=== PATIENT | female | born 1950 | race Caucasian/White ===

== ENCOUNTER → 2017-07-15 12:13 | Outpatient (CLI) | payer OTHER, MEDICARE, SELFPAY ==
--- NOTE | 2017-07-15 12:37 | RAD_ITS ---
STUDY: X-RAY - LUMBAR SPINE REASON FOR EXAM: Female, 67 years old. Back pain TECHNIQUE: 5 view(s) of the lumbar spine were obtained. COMPARISON: None FINDINGS: Normal lumbar lordosis. There is no substantial scoliosis. There is a normal alignment of the vertebrae. There is multilevel endplate spondylosis of the lumbar vertebrae. There is multi-level degenerative disc disease with multi-level disc space narrowing. There are clips within the pelvis consistent with prior tubal ligation. RAD/L/S Spine Min 4 Views IMPRESSION: Degenerative changes of the spine, as detailed above. Electronically Signed: Tess Marroquin MD at 23:45 EDT Tel , Service support ,
[2017-07-15 14:14] LABS: Anion Gap 9 (5-15); BUN 17 mg/dL (7-18); BUN/Creat Ratio 23.3 RATIO (10-20); Calcium,Total 9.1 mg/dL (8.5-10.1); Chloride 101 mmol/L (98-107); Creatinine, Serum 0.73 mg/dL (0.55-1.02); EST Glomerular Filtration Rate 85 mL/min (>60); Est Glom Filt Rate - Afr Amer 103 mL/min (>60); Glucose 99 mg/dL (74-106); Sodium Level 141 mmol/L (136-145); T4 Free Direct 0.86 ng/dL (0.76-1.46); Thyroid Stim Hormone (TSH) 0.83 uIU/mL (0.358-3.74)
[2017-07-16 08:38] LABS: Vitamin D,25 Hydroxy 49.5 ng/mL (29.95-100.01)
== END ==
PROVIDERS: Family Provider Family Medicine; PCP Family Medicine; Visit Provider Family Medicine
DX: E04.1 Nontoxic single thyroid nodule (principal); M81.0 Age-related osteoporosis without current pathological fracture; M51.36 Other intervertebral disc degeneration, lumbar region
CPT/HCPCS: 36415; 72110; 80048; 82306; 84439; 84443

== ENCOUNTER → 2017-09-16 15:53 | Outpatient (CLI) | payer MEDICARE, OTHER, SELFPAY ==
[2017-09-16 18:06] LABS: AST(SGOT) 22 U/L (15-37); Alanine Aminotransfer ALT/SGPT 31 U/L (13-56); Albumin, Serum 4.1 g/dL (3.2-5.0); Alkaline Phosphatase 48 U/L (45-117); Bilirubin, Direct 0.09 mg/dL (0.00-0.30); Globulin 3.4 g/dL (2.2-4.2); Protein, Total 7.5 g/dL (6.4-8.2)
== END ==
PROVIDERS: Family Provider Family Medicine; PCP Family Medicine; Visit Provider Family Medicine
DX: Z79.899 Other long term (current) drug therapy (principal)
CPT/HCPCS: 36415; 80076

== ENCOUNTER → 2017-11-11 19:11 | Outpatient (CLI) | payer MEDICARE, OTHER, SELFPAY ==
[2017-11-19 11:54] LABS: HPV APTIMA, High Risk Negative (Negative)
== END ==
PROVIDERS: Referring Provider Obstetrics & Gynecology; Visit Provider Obstetrics & Gynecology
DX: Z12.4 Encounter for screening for malignant neoplasm of cervix (principal)
CPT/HCPCS: 88175; G0145

== ENCOUNTER → 2017-11-18 11:04 | Outpatient (CLI) | payer MEDICARE, OTHER, SELFPAY ==
[2017-11-18 12:30] LABS: Cholesterol 233 mg/dL (200); High Density Lipoprotein 56 mg/dL; Triglycerides 157 mg/dL; Very Low Density Lipoprotein 31 mg/dL (5-40)
== END ==
PROVIDERS: Family Provider Family Medicine; PCP Family Medicine; Visit Provider Family Medicine
DX: Z82.49 Family history of ischemic heart disease and other diseases of the circulatory system (principal)
CPT/HCPCS: 36415; 80061

== ENCOUNTER → 2017-11-21 08:22 | Outpatient (CLI) | payer MEDICARE, OTHER, SELFPAY ==
--- NOTE | 2017-11-21 08:28 | US_ITS ---
STUDY: THYROID ULTRASOUND REASON FOR EXAM: Female, 67 years old. Nodules. TECHNIQUE: Ultrasound evaluation of the thyroid was performed with real-time and static banda-scale imaging. COMPARISON: None. FINDINGS: RIGHT LOBE: The right lobe of the thyroid gland measures 4.5 x 2.0 x 1.6 cm. There is a homogeneous echotexture. There is a 3 cm complex solid and cystic nodule in the mid thyroid lobe. Other tiny cystic nodules are suggested. LEFT LOBE: The left lobe of the thyroid gland measures 4.2 x 1.6 x 1.1 cm. There is a homogeneous echotexture. There is a 5 mm solid nodule. ISTHMUS: The isthmus measures 2 mm . The regional lymph nodes are normal. US/Thyroid IMPRESSION: Dominant 3 cm solid and cystic mass of the right thyroid lobe. Consider ultrasound-guided biopsy. Electronically Signed: Anup José MD at 17:56 EDT , Service support ,
--- NOTE | 2017-11-21 09:00 | BI_ITS ---
MAMMOGRAPHY - BILATERAL SCREENING 3-D SANJUANA SYNTHESIS REASON FOR EXAM: Female, 67 years old. Bilateral Screening 3-D tomosynthesis PERTINENT HISTORY: Asymptomatic. No significant family history given. TECHNIQUE: 2-D mammograms and 3-D Sanjuana synthesis of the breast (s) were performed. CAD was performed. COMPARISON: 11/22/2016 FINDINGS: The breast composition is heterogeneously dense that can obscure small breast masses. Scattered benign calcifications are again seen bilaterally. No dense spiculated dominant masses or suspicious microcalcification cluster are identified. No architectural distortion, asymmetric density, skin thickening or nipple retraction identified. There has been no significant change since the most recent prior study. BI/SCREENING MAMM (CAD), BILAT IMPRESSION: No mammographic sign of malignancy identified. Routine yearly mammograms recommended. ASSESSMENT CATEGORY: BIRADS Category 2: Benign. A letter regarding these results will be sent to the patient by the facility within 30 days. FOLLOW UP RECOMMENDATION: Yearly follow up mammogram recommended. (A) Negative mammographic results should not deter biopsy as a palpable lesion if present should be followed based on clinical grounds and biopsy performed if clinically persistent for 3 months or increasing size. Approximately 10% of breast cancers are not detected by mammography. A normal mammogram should not delay biopsy of a clinically suspicious abnormality. Dense breast tissue may obscure neoplasm. Electronically Signed: Sven Palmer, at 13:07 EDT Tel , Service support ,
== END ==
PROVIDERS: Family Provider Family Medicine; PCP Family Medicine; Referring Provider Family Medicine; Visit Provider Family Medicine
DX: E04.1 Nontoxic single thyroid nodule (principal)
CPT/HCPCS: 76536; 77063; 77067

== ENCOUNTER → 2018-01-19 18:30 | Outpatient (CLI) | payer MEDICARE, OTHER, SELFPAY | PROVIDERS: Family Provider Family Medicine; PCP Family Medicine; Referring Provider Nurse Practitioner Family; Visit Provider Nurse Practitioner Family | DX: R30.0 Dysuria (principal) | CPT/HCPCS: 87077; 87086; 87088; 87186 ==

== ENCOUNTER → 2018-07-28 | Outpatient (CLI) | payer MEDICARE, OTHER, SELFPAY ==
[2018-07-28 12:46] LABS: PTHIN 49.2 pg/mL (18.4-80.1)
[2018-07-28 13:03] LABS: Anion Gap 9 (5-15); BUN 15 mg/dL (7-18); BUN/Creat Ratio 20.5 RATIO (10-20); Calcium,Total 9.2 mg/dL (8.5-10.1); Chloride 105 mmol/L (98-107); Cholesterol 233 mg/dL (200); Creatinine, Serum 0.73 mg/dL (0.55-1.02); EST Glomerular Filtration Rate 85 mL/min (>60); Est Glom Filt Rate - Afr Amer 103 mL/min (>60); Glucose 102 mg/dL (74-106); High Density Lipoprotein 69 mg/dL; Magnesium 2.5 mg/dL (1.6-2.6); Phosphorus 3.5 mg/dL (2.5-4.9); Potassium 4.1 mmol/L (3.5-5.1); Sodium Level 142 mmol/L (136-145); Thyroid Stim Hormone (TSH) 1.33 uIU/mL (0.358-3.74); Triglycerides 110 mg/dL; Very Low Density Lipoprotein 22 mg/dL (5-40)
[2018-07-29 14:54] LABS: Vitamin D,25 Hydroxy 55.5 ng/mL (29.95-100.01)
== END | disposition home or self-care (01) ==
PROVIDERS: Family Provider Family Medicine; PCP Family Medicine; Referring Provider Family Medicine; Visit Provider Family Medicine
DX: Z00.00 Encounter for general adult medical examination without abnormal findings (principal)
CPT/HCPCS: 36415; 80048; 80061; 82306; 82330; 83735; 83970; 84100; 84443

== ENCOUNTER 2018-08-03 20:07 | Emergency (ER) | payer MEDICARE, OTHER, SELFPAY ==
[2018-08-03 20:07] VITALS: BP 143/71; PULSE 63; RESP 15; TEMP 36.6; O2SAT 99; BMI 23.6
--- NOTE | 2018-08-03 20:19 | CT_ITS ---
STUDY: CT BRAIN WITHOUT CONTRAST REASON FOR EXAM: Female, 68 years old. Trauma RADIATION DOSAGE (If Supplied By Facility): DLP = ( 779.24 ) mGycm TECHNIQUE: Transaxial CT imaging of the brain was performed without administration of intravenous contrast material. Individualized dose optimization techniques were used for this CT. COMPARISON: None. FINDINGS: There is no acute bleed or infarct. There are normal white matter tracts. The ventricles are normal in configuration. There is no hydrocephalus. Mild bilateral ethmoid and maxillary sinus disease is present. The mastoid air cells are well aerated. There is no skull fracture. CT/Brain/Head without Contrast IMPRESSION: No acute intracranial abnormality. Mild bilateral ethmoid and maxillary sinus disease. Electronically Signed: Jayson Ambriz, at 20:52 EDT Tel , Service support ,
--- NOTE | 2018-08-03 21:53 | ED.VIS.GEN ---
History of Present Illness Chief Complaint: Head Injury Narrative: Patient presenting for evaluation secondary to head injury. 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 She reports that she has some depression in her forehead as well as nausea. Patient denies any visual changes numbness weakness loss of consciousness. Pain is sharp and mild to moderate worse with any sort of palpation. Patient is not on any sort of anticoagulants. Past Medical History - Allergies and Home Meds Allergies/Adverse Reactions: Allergies Sulfa (Sulfonamide Antibiotics) Allergy (Verified 11/11/17 13:54) Rash Primary Care Physician: Rj Saucedo MD [Primary Care Provider] - As Needed Smoking Status: Never smoker Review of Systems All systems negative except as indicated Gastrointestinal: Reports: Nausea Physical Exam Vital Signs/Narrative: Vital Signs Temp Pulse Resp BP Pulse Ox 08/03/18 20:07 98 F 63 15 143/71 H 99 General: Well nourished, Well developed, No Acute Distress Head: Normocephalic, - - Small depression noted with surrounding swelling of the patient's left frontal portion of her forehead. Eyes: Perrl, EOMI ENT: Moist mucous membranes, No rhinorrhea Neck: Supple, Nontender Cardiovascular: Regular rate, Regular rhythm, No murmurs Respiratory: No distress, CTA bilaterally, Chest nontender Abdomen: Soft, Nontender, Nondistended, Normal bowel sounds Back: Nontender, Normal Inspection Extremities: Nontender, No edema Skin: Normal color, No rash Neurological: Alert, Oriented x3, Cranial nerves II-XII grossly intact, Normal Strength, Normal Sensation Psychological: Normal affect, Normal Mood Diagnostic/Tx/Re-eval - Medical Decision Making Patient presented secondary to head injury. CT scan was obtained and shows no evidence of depressed skull fracture intracranial injury. Patient has symptomatology of concussion at this point, she was recommended on return to activity instructions and the patient was discharged with reassurance. ED Disposition - Plan for ED Patient: Disposition: Home or Assisted Living Diagnosis: Concussion Instructions: ED Concussion Referrals: Rj Saucedo MD [Primary Care Provider] - As Needed
[2018-08-03 21:58] VITALS: BP 137/87; PULSE 75; RESP 16; O2SAT 100
== END 2018-08-03 21:59 | disposition home or self-care (01) ==
PROVIDERS: Emergency Provider Emergency Medicine; Family Provider Family Medicine; PCP Family Medicine
DX: S06.0X0A Concussion without loss of consciousness, initial encounter (principal); W20.8XXA Other cause of strike by thrown, projected or falling object, initial encounter; Y93.E9 Activity, other interior property and clothing maintenance; Y92.009 Unspecified place in unspecified non-institutional (private) residence as the place of occurrence of the external cause; Y99.8 Other external cause status
CPT/HCPCS: 70450; 99282

== ENCOUNTER → 2018-12-21 | Outpatient (CLI) | payer MEDICARE, OTHER, SELFPAY ==
--- NOTE | 2018-12-21 12:24 | BI_ITS ---
MAMMOGRAPHY - BILATERAL SCREENING REASON FOR EXAM: Female, 68 years old. Routine annual screening examination. PERTINENT HISTORY: Non-contributory. TECHNIQUE: Digital bilateral breast sanjuana (3D mammographic acquisition) in the CC and MLO projections. 2-D mediolateral oblique (MLO) and craniocaudad (CC) views of both breasts were obtained. CAD: Full Field Digital Mammography with Computer Added Detection was performed. COMPARISON: Comparison is made with prior study dated November 21, 2017 and November 22, 2016. FINDINGS: Breast Composition: The breasts are heterogeneously dense, which may obscure small masses. There are no dominant masses or suspicious calcifications. Stable scattered bilateral calcifications. No focal cluster is seen. No other significant abnormalities are identified. There has been no significant change since the prior study. BI/SCREEN MAMM (CAD) W/SANJUANA BILAT IMPRESSION: Stable bilateral screening mammogram. Yearly follow-up mammogram recommended. (A) ASSESSMENT CATEGORY: BIRADS Category 2: Benign. A letter regarding these results will be sent to the patient by the facility within 30 days. Approximately 10% of breast cancers are not detected by mammography. A normal mammogram should not delay biopsy of a clinically suspicious abnormality. [id number] Electronically Signed: Umesh Walsh, at 13:40 EST , Service support ,
== END | disposition home or self-care (01) ==
LOC: OPBI 12:22
PROVIDERS: Family Provider Family Medicine; PCP Family Medicine; Referring Provider Obstetrics & Gynecology; Visit Provider Obstetrics & Gynecology
DX: Z12.31 Encounter for screening mammogram for malignant neoplasm of breast (principal)
CPT/HCPCS: 77063; 77067

== ENCOUNTER → 2018-12-25 | Outpatient (CLI) | payer MEDICARE, OTHER, SELFPAY ==
--- NOTE | 2018-12-25 13:56 | US_ITS ---
STUDY: THYROID ULTRASOUND REASON FOR EXAM: Female, 68 years old. Nodule. TECHNIQUE: Ultrasound evaluation of the thyroid was performed with real-time and static banda-scale imaging. COMPARISON: 11/21/2017. FINDINGS: RIGHT LOBE: The right lobe of the thyroid gland measures 4.4 x 2.0 x 1.7 cm. There is a homogeneous echotexture. Within the right thyroid lobe at the level of the mid upper pole there is a round nodule with regular margins and predominantly cystic. There are scattered solid components and more significant along the periphery. There is peripheral color flow. This measures 2.6 x 1.7 x 1.6 cm. LEFT LOBE: The left lobe of the thyroid gland measures 4.1 x 1.6 x 1.2 cm. There is a homogeneous echotexture. Within the left thyroid lobe at the level of the middle pole there is a round hypoechoic to isoechoic, solid, nodule with hypoechoic rim measuring 0.4 x 0.4 x 0.4 cm. There is peripheral color flow and margins are regular. ISTHMUS: The isthmus measures 2.0 mm. The regional lymph nodes are normal. US/Thyroid IMPRESSION: Bilateral thyroid lobe nodules as described above with morphology favoring benign process and essentially stable in the interval. No new nodules are identified. Electronically Signed: Khushboo Bai MD at 3:49 EST , Service support ,
== END | disposition home or self-care (01) ==
LOC: US 13:55
PROVIDERS: Family Provider Family Medicine; PCP Family Medicine; Referring Provider Family Medicine; Visit Provider Family Medicine
DX: E04.1 Nontoxic single thyroid nodule (principal)
CPT/HCPCS: 76536

== ENCOUNTER → 2019-01-25 09:43 | Outpatient (CLI) | payer MEDICARE, OTHER, SELFPAY ==
[2019-01-25 09:00] VITALS: BMI 23.6
[2019-01-25 11:01] LABS: Cholesterol 243 mg/dL (200); High Density Lipoprotein 73 mg/dL; Triglycerides 83 mg/dL; Very Low Density Lipoprotein 17 mg/dL (5-40)
== END ==
PROVIDERS: Family Provider Family Medicine; PCP Family Medicine; Referring Provider Obstetrics & Gynecology; Visit Provider Obstetrics & Gynecology
DX: E78.00 Pure hypercholesterolemia, unspecified (principal); R31.9 Hematuria, unspecified; R82.90 Unspecified abnormal findings in urine
CPT/HCPCS: 36415; 80061; 87086

== ENCOUNTER → 2019-02-02 13:24 | Outpatient (CLI) | payer MEDICARE, OTHER, SELFPAY ==
[2019-01-25 09:00] VITALS: BMI 23.6
--- NOTE | 2019-02-02 13:31 | BD_ITS ---
STUDY: DUAL ENERGY X-RAY ABSORPTIOMETRY / DXA REASON FOR EXAM: Female, 68 years old. The patient is postmenopausal. No loss of height. TECHNIQUE: Bone Mineral Density (BMD) measurements of lumbar spine and bilateral hips were obtained. COMPARISON: Comparison is made with prior study dated January 30, 2008. FINDINGS: Lumbar Spine (L1-L4): g/cm2 (1.024) / T-score (-1.2) / Z-score (0.4) Findings are suggestive of osteopenia with a low fracture risk. Left Femur Total: g/cm2 (0.808) / T-score (-1.6) / Z-score (-0.3) Left Femoral Neck: g/cm2 (0.711) / T-score (-2.4) / Z-score (-0.8) Right Femur Total: g/cm2 (0.900) / T-score (-0.9) / Z-score (0.4) Right Femoral Neck: g/cm2 (0.783) / T-score (-1.8) / Z-score (-0.3) The T-Scores on the most recent prior examination were: Lumbar Spine (L1-L4): There has been improvement of bone density since the previous examination. Left Femur Total: which represents an improvement of 4.7%. Right Femur Total: which represents a worsening of 1%. BD/Dexa Bone Density Study IMPRESSION: The patient is considered osteopenic as outlined below according to World Julio Organization (WHO) criteria with a high fracture risk. There has been improvement of bone density since the previous examination. Reference Information: The T-score is the number of standard deviations above or below the standard which is normal for young adults at their peak bone mineral density. The World Health Organization (WHO) interprets the T-scores as follows: Above -1 Normal bone density Between -1 and -2.5 Osteopenia Equal to / or below -2.5 Osteoporosis As a practical clinical guideline, osteopenia may be graded as follows: Mild -1 through -1.5 Moderate -1.6 through -2.0 Severe -2.1 through -2.4 The Z-score is the number of standard deviations above or below age-matched controls. A Z-score of less than -1.5 would be considered abnormal. References: 1. NIH Osteoporosis and Related Bone Diseases http://www.osteo.org 2. International Society for Clinical Densitometry http://www.iscd.org 3. National Osteoporosis Foundation http://www.nof.org Electronically Signed: Umesh Walsh, at 12:58 EST , Service support ,
== END ==
PROVIDERS: Family Provider Family Medicine; PCP Family Medicine; Referring Provider Obstetrics & Gynecology; Visit Provider Obstetrics & Gynecology
DX: Z78.0 Asymptomatic menopausal state (principal)
CPT/HCPCS: 77080

== ENCOUNTER → 2020-02-01 11:35 | Outpatient (CLI) | payer MEDICARE, OTHER, SELFPAY ==
[2019-01-25 09:00] VITALS: BMI 23.6
[2020-02-01 10:53] VITALS: BMI 23.2
--- NOTE | 2020-02-01 11:53 | BI_ITS ---
MAMMOGRAPHY - BILATERAL SCREENING REASON FOR EXAM: Female, 69 years old. Routine annual screening examination. PERTINENT HISTORY: Non-contributory. TECHNIQUE: Digital bilateral breast sanjuana (3D mammographic acquisition) in the CC and MLO projections. 2-D mediolateral oblique (MLO) and craniocaudad (CC) views of both breasts were obtained. CAD: Full Field Digital Mammography with Computer Added Detection was performed. COMPARISON: Comparison is made with prior study dated 12/21/2018 and 11/21/2017. FINDINGS: Breast Composition: The breasts are heterogeneously dense, which may obscure small masses. There are no dominant masses or suspicious calcifications. Stable scattered bilateral benign-appearing calcifications. No focal cluster is seen. No other significant abnormalities are identified. There has been no significant change since the prior study. BI/SCREEN MAMM (CAD) W/SANJUANA BILAT IMPRESSION: Stable bilateral screening mammogram. Yearly follow-up mammogram recommended. (A) ASSESSMENT CATEGORY: BIRADS Category 2: Benign. A letter regarding these results will be sent to the patient by the facility within 30 days. Approximately 10% of breast cancers are not detected by mammography. A normal mammogram should not delay biopsy of a clinically suspicious abnormality. [id number] Electronically Signed: Umesh Walsh, at 12:42 EST , Service support ,
== END ==
PROVIDERS: PCP Family Medicine; Referring Provider Obstetrics & Gynecology; Visit Provider Obstetrics & Gynecology
DX: Z12.31 Encounter for screening mammogram for malignant neoplasm of breast (principal); R30.0 Dysuria
CPT/HCPCS: 77063; 77067; 87086

== ENCOUNTER 2020-05-29 18:52 | Emergency (ER) | payer MEDICARE, OTHER, SELFPAY ==
[2020-02-01 10:53] VITALS: BMI 23.2
[2020-05-29 18:54] VITALS: BP 115/80; PULSE 78; RESP 14; TEMP 36.6; O2SAT 100; BMI 24.6
--- NOTE | 2020-05-29 19:14 | RAD_ITS ---
STUDY: X-RAY - RIGHT SHOULDER REASON FOR EXAM: Female, 69 years old. shoulder pain TECHNIQUE: 4 view(s) of the shoulder. COMPARISON: None. FINDINGS: Normal glenohumeral articulation. Normal acromioclavicular joint. Normal acromion. Normal humeral head and visualized proximal humerus. The soft tissue structures are unremarkable. There is no demonstrated fracture. Normal visualized pulmonary apex. RAD/Shoulder min 2 Views IMPRESSION: Normal x-ray examination of the shoulder. Electronically Signed: Ike Card MD at 20:40 EDT , Service support ,
--- NOTE | 2020-05-29 19:15 | ED.VIS.GEN ---
History of Present Illness Chief Complaint: Upper Extremity Injury Informant: Patient Narrative: 69-year-old female presenting with right shoulder pain and radiation of pain down her arm. She states it is fairly diffuse and not in any certain dermatome. Patient states that her arm shoulder started to hurt after raking the yard a couple days ago. Yesterday she did try using her inversion table and felt a pop. She cannot localize where this was. Patient has pain since that time. She has no direct trauma. She has pain with movement of her right shoulder laterally. - Past Medical History (1) Osteopenia Status: Chronic Comment: DEXA in 2020 (2) Dyspareunia Status: Chronic Comment: failed pills and cream. Past Medical History - Allergies and Home Meds Allergies/Adverse Reactions: Allergies Sulfa (Sulfonamide Antibiotics) Allergy (Verified 05/29/20 18:57) Rash Primary Care Physician: Rj Saucedo MD [Primary Care Provider] - Agustin Guzman DO [STAFF PHYSICIAN] - Prior records reviewed: Yes Past Medical History: - - ADHD Surgical History: noncontributory Lives: Spouse/ Significant Other Smoking Status: Never smoker Alcohol: None Drugs: None Review of Systems General: Denies: Chills, Fever, Sweats Eyes: Denies: Visual changes - bilaterally, Diplopia ENT: Denies: Rhinorrhea, Sore throat Cardiovascular: Denies: Chest pain, Palpitations Respiratory: Denies: Dyspnea, Cough, Dyspnea on exertion Gastrointestinal: Denies: Abdominal pain, Nausea, Vomiting, Diarrhea, Melena, Hematochezia Genitourinary: Denies: Dysuria, Hematuria, Frequency Musculoskeletal: Reports: - - Right shoulder pain. Neurological: Reports: Parasthesia - Radiation of pain down the right arm laterally.. Denies: Headache, Weakness Psych: Denies: Depression, Anxiety, Suicidal thoughts, Suicidal ideations, -, - Physical Exam Vital Signs/Narrative: Vital Signs Temp Pulse Resp BP Pulse Ox 05/29/20 18:54 97.8 F 78 14 115/80 100 Inital Vital Signs reviewed: Yes General: Well nourished Head: Normocephalic, Atraumatic Eyes: Perrl, EOMI ENT: Moist mucous membranes, No rhinorrhea Neck: Supple, - - No midline spinal tenderness, deformity, step-off. There is pain elicited by rotation to the right and there is decreased rotation to the right. Cardiovascular: Regular rate, Regular rhythm Respiratory: No distress, CTA bilaterally Back: Nontender, Normal Inspection Extremities: - - No palpable tenderness to palpation to the right shoulder girdle or clavicle. Pain is elicited with abduction and she states it feels posterior to her joint. Neurological: Alert, Oriented x3 Psychological: Normal affect, Normal Mood Diagnostic/Tx/Re-eval Clinical Impression(s) from Imaging Studies Shoulder X-Ray 05/29/20 19:14 IMPRESSION: Normal x-ray examination of the shoulder. Electronically Signed: Ike Card MD at 20:40 EDT , Service support , Cervical Spine X-Ray 05/29/20 19:29 IMPRESSION: Mild degenerative changes of the visualized cervical spine. Electronically Signed: Rell Kruse DO at 20:32 EDT Tel [phone], Service support , - Medical Decision Making 9-year-old female presenting with chief complaint of right shoulder pain. On examination she has pain with rotation towards that shoulder. Her shoulder girdle is nontender to palpation. She complains of pain rating down her arm and on dermatomal pattern. Patient had 2 views of the right shoulder which by my interpretation are negative for acute fracture or subluxation. Radiology does agree. 3 views of the cervical spine show degenerative changes however there is no acute fracture, subluxation, change in disc height. Patient counseled the likely diagnosis for her cervical radiculopathy. She is given [place] [facility] for home. She is counseled to follow-up with Dr. Guzman and her PCP to ensure resolution. She is amenable to this plan. Patient stable for discharge. Impression: 1. Right shoulder pain 2. Cervical radiculopathy ED Disposition - Plan for ED Patient: Disposition: Home or Assisted Living Instructions: ED Radiculopathy, Cervical Prescriptions: Hydrocodone Bitart/Apap 5-325 [[place] 5MG-325MG] 1 tablet PO Q6H PRN PRN 3 Days #12 tab PRN Reason: Pain Prescription Printed Referrals: Rj Saucedo MD [Primary Care Provider] - Agustin Guzman DO [STAFF PHYSICIAN] -
[2020-05-29] MEDS: Ondansetron 4 MG/2 ML Vial IV (19:21)
[2020-05-29] MEDS: Morphine 4 MG/ML Syringe IV (19:23)
--- NOTE | 2020-05-29 19:29 | RAD_ITS ---
STUDY: X-RAY - CERVICAL SPINE REASON FOR EXAM: Female, 69 years old. Neck pain TECHNIQUE: 3 view(s) of the cervical spine were obtained. COMPARISON: None FINDINGS: Normal anterior atlantoaxial articulation. Normal odontoid process. Straightening of the cervical lordosis. Normal vertebral bodies. Mild spurring of the lower cervical endplates. Normal disc space heights. The soft tissue structures are unremarkable. RAD/Cerv Spine 2 or 3 Views IMPRESSION: Mild degenerative changes of the visualized cervical spine. Electronically Signed: Rell Kruse DO at 20:32 EDT Tel [phone], Service support ,
[2020-05-29] MEDS: oxyCODONE 5 MG Tablet PO (21:10)
[2020-05-29 21:16] VITALS: RESP 16
== END 2020-05-29 22:08 | disposition home or self-care (01) ==
PROVIDERS: Emergency Provider Student in an Organized Health Care Education/Training Program; PCP Family Medicine
DX: M54.12 Radiculopathy, cervical region (principal); M25.511 Pain in right shoulder
CPT/HCPCS: 72040; 73030; 96374; 96375; 99284; A4216; J2405

== ENCOUNTER → 2020-06-08 13:53 | Outpatient (CLI) | payer MEDICARE, OTHER, SELFPAY ==
[2020-06-05 15:15] VITALS: BMI 23.6
--- NOTE | 2020-06-08 13:54 | MRI_ITS ---
STUDY: MRI CERVICAL SPINE WITHOUT CONTRAST REASON FOR EXAM: Female, 70 years old. injury, right arm pain TECHNIQUE: Standardized fat and water weighted pulse sequences were obtained in the sagittal and axial planes. COMPARISON: X-ray 05/29/2020 FINDINGS: Normal foramen magnum and brainstem-cervical cord junction. Normal craniovertebral junction. Normal anterior atlantoaxial articulation. Normal odontoid process. Normal cervical lordosis. Normal vertebral bodies and posterior osseous elements. C2-3: Moderate left facet hypertrophy produces mild left neural foraminal stenosis. No central spinal stenosis. C3-4: Moderate right facet hypertrophy produces mild right neural foraminal stenosis. Moderate sized central disc protrusion produces moderate spinal stenosis with abutment of the central spinal cord. C4-5: 2 mm of anterolisthesis of C4 on C5 with a large central disc protrusion produces moderate spinal stenosis with abutment the central spinal cord. No neural foraminal stenosis. C5-6: Mild broad disc osteophyte complex produces mild spinal stenosis but no neural foraminal stenosis. C6-7: Mild broad disc osteophyte complex produces mild spinal stenosis but no neural foraminal stenosis. C7-T1: Moderate broad disc osteophyte complex produces moderate spinal stenosis with abutment central spinal cord but no neural foraminal stenosis. Normal cervical cord. Normal visualized soft tissue structures. MRI/Spine Cervical (Routine) IMPRESSION: Multilevel degenerative changes, as described above. Electronically Signed: Missael Mancilla MD at 15:49 EDT Tel , Service support ,
== END ==
PROVIDERS: PCP Family Medicine; Referring Provider Orthopaedic Surgery; Visit Provider Orthopaedic Surgery
DX: M50.10 Cervical disc disorder with radiculopathy, unspecified cervical region (principal); S14.109A Unspecified injury at unspecified level of cervical spinal cord, initial encounter
CPT/HCPCS: 72141

== ENCOUNTER → 2020-07-14 14:06 | Outpatient (CLI) | payer MEDICARE, OTHER, SELFPAY ==
--- NOTE | 2020-07-14 14:10 | US_ITS ---
STUDY: ULTRASOUND - URINARY BLADDER REASON FOR EXAM: Female, 70 years old. INCOMPLETE BLADDER EMPTYING TECHNIQUE: Ultrasound evaluation of the urinary bladder was performed with real-time and static banda-scale imaging. COMPARISON: None. FINDINGS: There is no right UVJ calculus. There is a visualized right ureteral jet. There is no left UVJ calculus. There is a visualized left ureteral jet. The distended volume of the urinary bladder is 680.8 ml. The empty volume of the urinary bladder is 35.71 ml. The bladder wall is within normal limits. The bladder wall measures . There is no demonstrated bladder wall mass lesion. There are no demonstrated bladder calculi. US/Post Void Residual Bladder IMPRESSION: Normal ultrasound of the urinary bladder. Electronically Signed: Umesh Walsh MD at 15:12 EDT , Service support ,
== END ==
PROVIDERS: PCP Family Medicine; Referring Provider Family Medicine; Visit Provider Family Medicine
DX: N39.0 Urinary tract infection, site not specified (principal); R33.9 Retention of urine, unspecified
CPT/HCPCS: 51798; 87086; 87088

== ENCOUNTER → 2020-08-02 09:21 | Outpatient (CLI) | payer MEDICARE, OTHER, SELFPAY ==
[2020-08-02 10:39] LABS: PTHIN 47.2 pg/mL (18.4-80.1)
[2020-08-02 10:44] LABS: Vitamin D,25 Hydroxy 63.1 ng/mL
[2020-08-02 10:53] LABS: Anion Gap 3 (5-15); BUN 13 mg/dL (7-18); BUN/Creat Ratio 16.7 RATIO (10-20); Calcium,Total 9.3 mg/dL (8.5-10.1); Chloride 107 mmol/L (98-107); Cholesterol 232 mg/dL (200); Creatinine, Serum 0.78 mg/dL (0.55-1.02); EST Glomerular Filtration Rate 78 mL/min (>60); Est Glom Filt Rate - Afr Amer 94 mL/min (>60); Glucose 99 mg/dL (74-106); High Density Lipoprotein 63 mg/dL; Magnesium 2.3 mg/dL (1.6-2.6); Potassium 3.8 mmol/L (3.5-5.1); Sodium Level 141 mmol/L (136-145); Thyroid Stim Hormone (TSH) 0.85 uIU/mL (0.358-3.74); Triglycerides 131 mg/dL; Very Low Density Lipoprotein 26 mg/dL (5-40)
== END ==
PROVIDERS: PCP Family Medicine; Referring Provider Family Medicine; Visit Provider Family Medicine
DX: M81.0 Age-related osteoporosis without current pathological fracture (principal)
CPT/HCPCS: 36415; 80048; 80061; 82306; 83735; 83970; 84443

== ENCOUNTER → 2020-08-02 10:17 | Outpatient (CLI) | payer MEDICARE, OTHER, SELFPAY ==
[2020-06-05 15:15] VITALS: BMI 23.6
--- NOTE | 2020-08-02 10:20 | US_ITS ---
STUDY: THYROID ULTRASOUND REASON FOR EXAM: Female, 70 years old. History of thyroid nodule. TECHNIQUE: Ultrasound evaluation of the thyroid was performed with real-time and static banda-scale imaging. COMPARISON: Comparison is made with prior examination of 12/25/2018 and 11/21/2017. FINDINGS: RIGHT LOBE: The right lobe of the thyroid gland measures 4.5 cm x 2.1 cm x 1.8 cm. There is a homogeneous echotexture. There is a complex solid/cystic nodule in the midpole of the right lobe measuring 3.2 cm x 1.8 cm x 1.4 cm. Increased intralobular nodular vascularity. LEFT LOBE: The left lobe of the thyroid gland measures 4.3 cm x 1.4 cm x 1 cm. There is a homogeneous echotexture. There is a 4 mm x 5 mm x 4 mm isoechoic nodule in the midpole of the left lobe. Intranodular and perinodular vascularity is seen. This is unchanged. ISTHMUS: The isthmus measures 1 mm. The regional lymph nodes are normal. US/Thyroid IMPRESSION: Mild increase in size of the complex nodule in the midportion of the right lobe of the thyroid. A biopsy is recommended. Electronically Signed: Umesh Walsh MD at 12:44 EDT , Service support ,
== END ==
PROVIDERS: PCP Family Medicine; Referring Provider Family Medicine; Visit Provider Family Medicine
DX: E04.1 Nontoxic single thyroid nodule (principal); Z13.220 Encounter for screening for lipoid disorders; M81.0 Age-related osteoporosis without current pathological fracture
CPT/HCPCS: 36415; 76536; 80048; 80061; 82306; 83735; 83970; 84443

== ENCOUNTER → 2020-08-09 | Outpatient (CLI) | payer MEDICARE, OTHER, SELFPAY ==
--- NOTE | 2020-08-08 08:28 | ASPS_PTH ---
PATIENT: YADIRA KWON LOC: [facility] U#:[id number] AGE/SX: 70/F ROOM: RE08/09/[address]: Dr. Brandon Felix MD : 1950 BED: DIS: 08/09/2020 SPEC #: [id number] RECD: 08/09/20 12:11 STATUS: ASHWINI CHAYO #: [id number] JEN: 08/08/20 08:[address]: Brandon Felix DEPT: CYTOLOGY RECD BY: Rivka Pineda ENTERED: 08/10/20 08:34 SP TYPE: ASPIRATION OTHR DR: Dr. Néstor Saucedo MD Tissues: Thyroid gland, NOS Procedures: Special Stain Group II Cytology Other HEADER OPERATION: Right thyroid fine needle aspiration PRE-OP DIAGNOSIS: Nontoxic multinodular goiter TISSUE SUBMITTED: Right thyroid FNA slides x12 DIAGNOSIS CYTOLOGY Right thyroid, FNA (smears): Consistent with benign follicular/colloid nodule. Adequate for evaluation. See comment. SJ:carlotta 08/11/2020 COMMENT Correlation with clinical, radiologic findings and appropriate follow up are necessary. CYTOLOGY STUDY Slides are reviewed. CYTOLOGY GROSS Received are 12 smears labeled with the patient's name and designated per the requisition as right thyroid. Submitted for staining. / carlotta 08/10/2020 TC:5 CPT: 76768
== END | disposition home or self-care (01) ==
LOC: LABSPEC 12:55
PROVIDERS: PCP Family Medicine; Referring Provider Surgery; Visit Provider Surgery
DX: E04.2 Nontoxic multinodular goiter (principal)
CPT/HCPCS: 88161; 88313

== ENCOUNTER → 2021-02-01 09:48 | Outpatient (CLI) | payer MEDICARE, OTHER, SELFPAY ==
--- NOTE | 2021-02-01 09:53 | BI_ITS ---
MAMMOGRAPHY - BILATERAL SCREENING REASON FOR EXAM: Female, 70 years old. Routine annual screening examination. PERTINENT HISTORY: Non-contributory. TECHNIQUE: Digital bilateral breast sanjuana (3D mammographic acquisition) in the CC and MLO projections. 2-D mediolateral oblique (MLO) and craniocaudad (CC) views of both breasts were obtained. CAD: Full Field Digital Mammography with Computer Added Detection was performed. COMPARISON: Comparison is made with prior study dated 02/01/2020 and 12/21/2018. FINDINGS: Breast Composition: The breasts are heterogeneously dense, which may obscure small masses. There are no dominant masses or suspicious calcifications. Stable scattered bilateral calcifications. No focal cluster is seen. No other significant abnormalities are identified. There has been no significant change since the prior study. BI/SCRN MAMM (CAD)W/SANJUANA BILAT IMPRESSION: Stable bilateral screening mammogram. Yearly follow-up mammogram recommended. (A) ASSESSMENT CATEGORY: BIRADS Category 2: Benign. A letter regarding these results will be sent to the patient by the facility within 30 days. Approximately 10% of breast cancers are not detected by mammography. A normal mammogram should not delay biopsy of a clinically suspicious abnormality. [id number] Electronically Signed: Umesh Walsh MD at 11:14 EST , Service support ,
== END ==
PROVIDERS: PCP Family Medicine; Referring Provider Obstetrics & Gynecology; Visit Provider Obstetrics & Gynecology
DX: Z12.31 Encounter for screening mammogram for malignant neoplasm of breast (principal)
CPT/HCPCS: 77063; 77067

== ENCOUNTER 2021-05-10 16:17 | Outpatient (CLI) | payer MEDICARE, OTHER, SELFPAY ==
[2021-05-10 17:36] LABS: Absolute Lymphocyte Count 1.55 X10^3/uL (0.83-4.51); Absolute Neutrophil Count 3.7 X10^3/uL (2.0-7.7); Basophil# 0.04 X10^3/uL; Basophil% 0.7 % (0-1); Eosinophil# 0.19 X10^3/uL; Eosinophils% 3.2 % (0-5); Hematocrit 36.5 % (37-47); Hemoglobin 11.9 g/dL (12.0-15.0); Lymphocyte # 1.55 X10^3/ul (0.83-4.51); Lymphocyte % 26.5 % (19-41); Mean Corp Hgb Conc 32.6 g/dL (32-36); Mean Corpuscular Hgb 30.2 pg (27.0-32.0); Mean Corpuscular Volume 92.6 fL (81-99); Mean Platelet Vol. 10.2 fl (6.2-12.0); Monocyte# 0.38 X10^3/uL; Monocyte% 6.5 % (0-10); NRBC Flagged by Analyzer 0 % (0-5); Neutrophil # 3.69 X10^3/uL (2.7-7.7); Neutrophil % 62.9 % (47-70); Platelet Count 320 K/mm3 (150-450); RBC Distribution Width CV 13.6 % (11.6-14.6); RBC Distribution Width SD 45.9 fl (35.1-43.9); Red Blood Count 3.94 M/mm3 (4.2-5.4); White Blood Count 5.9 K/mm3 (4.4-11.0)
[2021-05-10 17:51] LABS: Erythrocyte Sedimentation Rate 15 mm/hr (0-30)
[2021-05-10 18:03] LABS: ALB/GLOB Ratio 1.2 RATIO (0.9-2.4); AST(SGOT) 15 U/L (15-37); Alanine Aminotransfer ALT/SGPT 24 U/L (13-56); Alkaline Phosphatase 54 U/L (45-117); Anion Gap 7 (5-15); BUN 16 mg/dL (7-18); BUN/Creat Ratio 21.4 RATIO (10-20); CRP < 2.90 mg/L (0.0-3.0); Calcium,Total 9.1 mg/dL (8.5-10.1); Chloride 103 mmol/L (98-107); Creatinine, Serum 0.75 mg/dL (0.55-1.02); EST Glomerular Filtration Rate 82 mL/min (>60); Est Glom Filt Rate - Afr Amer 99 mL/min (>60); Ferritin 62 ng/mL (8-252); Globulin 3.4 g/dL (2.2-4.2); Glucose 109 mg/dL (74-106); Iron 48 ug/dL (50-170); Magnesium 2.6 mg/dL (1.6-2.6); Potassium 3.3 mmol/L (3.5-5.1); Protein, Total 7.4 g/dL (6.4-8.2); Sodium Level 139 mmol/L (136-145); Thyroid Stim Hormone (TSH) 0.28 uIU/mL (0.358-3.74)
[2021-05-10 18:16] LABS: Vitamin B12 357 pg/mL (211-911)
[2021-05-12 08:56] LABS: Free T3 3.2 pg/mL (2.18-3.98); T4 Free Direct 0.83 ng/dL (0.76-1.46)
== END 2021-05-10 23:59 | disposition home or self-care (01) ==
LOC: MFPLAB 16:24
PROVIDERS: PCP Family Medicine; Referring Provider Family Medicine; Visit Provider Family Medicine
DX: R53.83 Other fatigue (principal); R19.7 Diarrhea, unspecified; U09.9 Post COVID-19 condition, unspecified; M81.0 Age-related osteoporosis without current pathological fracture
CPT/HCPCS: 36415; 80053; 82306; 82607; 82728; 83540; 83735; 84439; 84443; 84481; 85025; 85652; 86140

== ENCOUNTER 2021-05-15 11:12 | Outpatient (CLI) | payer MEDICARE, OTHER, SELFPAY | END 2021-05-15 23:59 | disposition home or self-care (01) | LOC: MFPLAB 11:12 | PROVIDERS: PCP Family Medicine; Referring Provider Family Medicine; Visit Provider Family Medicine | DX: R19.7 Diarrhea, unspecified (principal) | CPT/HCPCS: 87493 ==

== ENCOUNTER 2021-06-06 13:05 | Outpatient (CLI) | payer MEDICARE, OTHER, SELFPAY ==
--- NOTE | 2021-06-06 13:09 | ECHOD_ITS ---
Reason For Study: SOB Procedure This was a 2D Doppler, Color Flow transthoracic echocardiogram. The exam was of adequate technical quality. Exam performed in department. Left Ventricle Normal LV size. Left ventricular systolic function is normal. The estimated ejection fraction is 65 %. Diastolic function is indeterminate. No regional wall motion abnormalities noted. Right Ventricle Normal RV size. Normal systolic function. Atria Normal left atrium. Normal right atrium. No doppler evidence for ASD. Mitral Valve There is no mitral annular calcification. Mild diffuse mitral valve thickening. Mild mitral valve prolapse. Trivial mitral valve insufficiency. Tricuspid Valve Normal tricuspid valve. Mild tricuspid valve insufficiency. Right ventricular systolic pressure estimated to be 25 mmHg. Aortic Valve Trisinus/trileaflet aortic valve. Normal aortic valve. Pulmonic Valve The pulmonic valve is not well visualized. Mild (1+) pulmonic valve insufficiency. Great Vessels The aortic root is not well visualized. Pericardium/Pleural No pericardial effusion. MMode/2D Measurements & Calculations LVIDd: 4.0 cm IVSd: 1.0 cm Ao root diam: 3.7 cm LVIDs: 2.4 cm LVPWd: 0.78 cm LA dimension: 2.7 cm FS: 40.0 % LAV(MOD-bp): 38.8 ml LA A4 area: 15.8 cm2 RA A4 area: 13.1 cm2 LAV(MOD-bp) Indexed: 24.6 ml/m2 LAV(MOD-sp2): 33.3 ml LAV(MOD-sp4): 38.3 ml Time Measurements MV dec time: 0.22 sec Doppler Measurements & Calculations MV E max alberto: 94.4 cm/sec Lat Peak E' Alberto: 5.7 cm/sec Med Peak E' Alberto: 10.6 cm/sec MV A max alberto: 115.9 cm/sec E/E' lat: 16.4 E/E' med: 8.9 MV E/A: 0.81 MV V2 max: 133.9 cm/sec MV P1/2t max alberto: 118.5 cm/sec Ao V2 max: 117.6 cm/sec MV max P.2 mmHg MV P1/2t: 64.1 msec Ao max P.5 mmHg MV V2 mean: 74.9 cm/sec MV dec slope: 541.5 cm/sec2 MV mean P.6 mmHg MVA(P1/2t): 3.4 cm2 MV V2 VTI: 31.7 cm LV V1 max: 97.6 cm/sec PA V2 max: 70.3 cm/sec TR max alberto: 234.3 cm/sec LV V1 max P.8 mmHg TR max P.0 mmHg ECHO/Echo Complete Interpretation Summary Left ventricular systolic function is normal. The estimated ejection fraction is 65 %. Mild diffuse mitral valve thickening. Mild mitral valve prolapse. Trivial mitral valve insufficiency. Mild tricuspid valve insufficiency. Mild (1+) pulmonic valve insufficiency. Right ventricular systolic pressure estimated to be 25 mmHg. Diastolic function is indeterminate. Ordering Physician: Rj Saucedo Referring Physician: Rj Saucedo Performed By: nAderson Webber [facility]
== END 2021-06-06 23:59 | disposition home or self-care (01) ==
LOC: CVS 13:08
PROVIDERS: PCP Family Medicine; Referring Provider Family Medicine; Visit Provider Family Medicine
DX: R06.02 Shortness of breath (principal)
CPT/HCPCS: 93306

== ENCOUNTER → 2021-08-07 | Outpatient (CLI) | payer MEDICARE, OTHER, SELFPAY ==
--- NOTE | 2021-08-07 13:30 | US_ITS ---
STUDY: THYROID ULTRASOUND REASON FOR EXAM: Female, 71 years old. NODULE TECHNIQUE: Ultrasound evaluation of the thyroid was performed with real-time and static banda-scale imaging. COMPARISON: 08/02/2020 FINDINGS: RIGHT LOBE: The right lobe of the thyroid gland measures 4.9 x 2.1 x 1.7 cm. There is a homogeneous echotexture. Complex solid and cystic nodule of the inferior right thyroid lobe measures 3.2 x 1.8 x 1.7 cm, not substantially changed. No new right thyroid lobe nodule. LEFT LOBE: The left lobe of the thyroid gland measures 4.5 x 1.6 x 1.1 cm. There is a homogeneous echotexture. Isoechoic nodule of the mid left thyroid gland measures 4 mm, not significantly changed. No new left thyroid lobe nodule. ISTHMUS: The isthmus measures 1 mm. The regional lymph nodes are normal. US/Thyroid IMPRESSION: 1. Moderately (TiRads 4) suspicious right thyroid lobe nodule, unchanged since 08/02/2020. FNA sampling still recommended based on ACR guidelines, if not already performed. Electronically Signed: Carlos Mathew MD ([place]) at 9:17 EDT Reading Location ID and State: / [place] , Service support ,
--- NOTE | 2021-08-07 13:33 | BD_ITS ---
STUDY: DUAL ENERGY X-RAY ABSORPTIOMETRY / DXA REASON FOR EXAM: Female, 71 years old. M81.0 patient is postmenopausal. TECHNIQUE: Bone Mineral Density (BMD) measurements of lumbar spine and bilateral hips were obtained. COMPARISON: Comparison is made with prior study dated 02/02/2019. FINDINGS: Lumbar Spine (L1-L4): g/cm2 (1.049) / T-score (0.0) / Z-score (2.1) Findings are suggestive of normal bone density with a low fracture risk. Left Femur Total: g/cm2 (0.764) / T-score (-1.5) / Z-score (0.0) Left Femoral Neck: g/cm2 (0.581) / T-score (-2.4) / Z-score (-0.7) Right Femur Total: g/cm2 (0.906) / T-score (-0.3) / Z-score (1.2) Right Femoral Neck: g/cm2 (0.686) / T-score (-1.5) / Z-score (0.3) The T-Scores on the most recent prior examination were: Lumbar Spine (L1-L4): There has been improvement of bone density since the previous examination. Left Femur Total: which represents an improvement of 2.2%. Right Femur Total: which represents an improvement of 8.3%. BD/Dexa Bone Density Study IMPRESSION: The patient is considered osteopenic as outlined below according to World Julio Organization (WHO) criteria with a high fracture risk. There has been of bone density since the previous examination. Reference Information: The T-score is the number of standard deviations above or below the standard which is normal for young adults at their peak bone mineral density. The World Health Organization (WHO) interprets the T-scores as follows: Above -1 Normal bone density Between -1 and -2.5 Osteopenia Equal to / or below -2.5 Osteoporosis As a practical clinical guideline, osteopenia may be graded as follows: Mild -1 through -1.5 Moderate -1.6 through -2.0 Severe -2.1 through -2.4 The Z-score is the number of standard deviations above or below age-matched controls. A Z-score of less than -1.5 would be considered abnormal. References: 1. NIH Osteoporosis and Related Bone Diseases www osteo.org 2. International Society for Clinical Densitometry www iscd.org 3. National Osteoporosis Foundation www nof.org Electronically Signed: Umesh Walsh MD at 14:15 EDT ,
== END | disposition home or self-care (01) ==
LOC: OPBD 13:28
PROVIDERS: PCP Family Medicine; Visit Provider Family Medicine
DX: M81.0 Age-related osteoporosis without current pathological fracture (principal); E04.1 Nontoxic single thyroid nodule
CPT/HCPCS: 76536; 77080

== ENCOUNTER 2021-11-22 19:51 | Emergency (ER) | payer MEDICARE, OTHER, SELFPAY ==
[2021-11-22 19:52] VITALS: BP 188/99; PULSE 98; RESP 18; TEMP 36.3; O2SAT 100; BMI 22.6
[2021-11-22 20:15] LABS: Absolute Lymphocyte Count 2.22 X10^3/uL (0.83-4.51); Absolute Neutrophil Count 5.3 X10^3/uL (2.0-7.7); Basophil# 0.04 X10^3/uL; Basophil% 0.5 % (0-1); Eosinophil# 0.28 X10^3/uL; Eosinophils% 3.3 % (0-5); Hematocrit 39.4 % (37-47); Hemoglobin 12.6 g/dL (12.0-15.0); Lymphocyte # 2.22 X10^3/ul (0.83-4.51); Lymphocyte % 26.3 % (19-41); Mean Corpuscular Volume 90.8 fL (81-99); Mean Platelet Vol. 9.6 fl (6.2-12.0); Monocyte# 0.55 X10^3/uL; Monocyte% 6.5 % (0-10); NRBC Flagged by Analyzer 0 % (0-5); Neutrophil # 5.34 X10^3/uL (2.7-7.7); Neutrophil % 63.2 % (47-70); Platelet Count 348 K/mm3 (150-450); RBC Distribution Width CV 13.3 % (11.6-14.6); RBC Distribution Width SD 44.9 fl (35.1-43.9); Red Blood Count 4.34 M/mm3 (4.2-5.4); White Blood Count 8.5 K/mm3 (4.4-11.0)
--- NOTE | 2021-11-22 20:17 | RAD_ITS ---
STUDY: X-RAY CHEST REASON FOR EXAM: Female, 71 years old. Chest pain. Patient''s states she is having heart attack symptoms since yesterday. Pain in left shoulder on the left breast. Weakness. TECHNIQUE: Single AP portable view of the chest. COMPARISON: None. FINDINGS: The lungs are clear and expanded. There is no demonstrated pleural abnormality. Normal size heart. Normal mediastinum and susy. Normal visualized pulmonary arteries. Normal visualized aortic arch and descending thoracic aorta. Normal visualized thoracic spine. Normal visualized ribs, clavicles, and shoulders. There is no demonstrated abnormality of the visualized soft tissue structures of the upper abdomen. RAD/Chest 1 View (Portable) IMPRESSION: Normal x-ray examination of the chest. Electronically Signed: Luiz Guzman DO at 20:28 EDT ,
[2021-11-22 20:34] LABS: Anion Gap 7 (5-15); BUN 18 mg/dL (7-18); BUN/Creat Ratio 17.6 RATIO (10-20); Calcium,Total 9.7 mg/dL (8.5-10.1); Chloride 107 mmol/L (98-107); Creatinine, Serum 1.02 mg/dL (0.55-1.02); EST Glomerular Filtration Rate 57 mL/min (>60); Est Glom Filt Rate - Afr Amer 69 mL/min (>60); Estimated Creatinine Clearance 39.28 ml/min; Glucose 120 mg/dL (74-106); Potassium 3.6 mmol/L (3.5-5.1); Sodium Level 141 mmol/L (136-145); Troponin-I HS 5 pg/mL (3.0-54.0)
--- NOTE | 2021-11-22 21:18 | EDS_ITS ---
HPI History of Present Illness Chief Complaint: General Illness Narrative Narrative: 71-year-old female presenting with nausea and dyspepsia and belching. This happened most of the day. She states she went to [place] yesterday and was cleaning out a house and did not eat or drink much yesterday. She just was not hungry. Today she reports she was a little bit nauseous. The neighbor at the house she was cleaning gave her Zofran and this improved her. She did drink some fluids today. She is not vomiting. He states that at times she was feeling a little bit sweaty. She did not have any chest pain or shortness of breath. She states he is not coughing or having fevers or chills or body aches. PFSH PFS Medical History Anxiety Back pain History of abnormal cervical Pap smear History of steroid therapy History of thyroid nodule Injury of head and neck Irregular heart beat Leg cramps Migraine headache Non-smoker Osteoporosis Post-menopausal Restless legs Shortness of breath on exertion Trigger finger of both hands Ulcer Home Medications sertraline 100 mg tablet 100 mg PO DAILY 06/05/20 [History Last Taken Unknown] bupropion HCl 150 mg 24 hr tablet, extended release 150 mg PO DAILY 11/22/21 [History Last Taken Unknown] ondansetron 4 mg disintegrating tablet 4 mg PO Q8H PRN nausea and vomiting #10 tabs 11/22/21 [Rx Last Taken Unknown] Allergy/AdvReac Type Severity Reaction Status Date / Time Sulfa (Sulfonamide Allergy Rash Verified 11/22/21 19:52 Antibiotics) Family History Mother Osteoporosis Congestive heart failure Rheumatoid arthritis Hypertension A-fib Father Heart disease Brother Heart disease Surgical History H/O LEEP H/O tubal ligation History of back surgery History of carpal tunnel surgery Social History household members: spouse housing: house Smoking Status: Never smoker alcohol intake: never substance use type: does not use caffeine: Yes what type of physical activity do you participate in: none seatbelt use: always do you feel safe at home: Yes additional social history: [employer]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) ROS ROS ED Constitutional Constitutional ED: Denies chills or fever(s) Eyes Eyes: Denies change in vision or diplopia ENT ENT ED: Denies rhinorrhea or sore throat Cardiovascular Cardiovascular: Denies chest pain or palpitations Respiratory/Chest Respiratory/Chest: Denies cough or dyspnea Gastrointestinal Gastrointestinal: Reports nausea; Denies abdominal pain, diarrhea or vomiting Genitourinary Genitourinary ED: Denies dysuria or hematuria Musculoskeletal Musculoskeletal: Denies arthralgias or back pain Integumentary Denies abscess or Abrasions Neurologic Neurologic: Denies headache(s) or paresthesias EXAM Physical Exam Const Vital Signs: 11/22/21 19:52 11/22/21 20:05 11/22/21 20:05 Temperature 97.3 F L Temperature Source Temporal Pulse Rate 98 Respiratory Rate 18 Respiratory Effort Normal Respiratory Pattern Normal Blood Pressure 188/99 H Blood Pressure Mean 128 Pulse Ox 100 Oxygen Delivery Method Room Air Room Air Positive well nourished General Appearance ED: NAD; Negative for pallor HEENT Reports moist mucous membranes Eyes PERRL and EOMs intact bilaterally General Eye ED: Negative for pale conjunctiva or scleral icterus Chest Wall inspection of chest normal Resp clear to auscultation bilaterally Auscultation: Negative for rales, rhonchi or wheezes Cardio regular rate and regular rhythm GI normal to inspection, nondistended, normoactive bowel sounds Neuro oriented x3 and CN's II-XII intact bilaterally Sensorium / Orientation: alert Motor Exam: strength 5/5 throughout Psych mental status grossly normal Skin no rashes or lesions noted General Skin Exam: Negative for jaundice or pallor MDM MDM MDM Narrative Medical decision making narrative: Patient presenting with nausea and episodes of dyspepsia as well as belching which occurred most of the day today. Started in the morning. An EKG was obtained and on my interpretation this is a normal sinus rhythm with a ventricular rate of 80 bpm without sign of ischemic change or dysrhythmia. Chest x-ray on my interpretation shows no acute cardiopulmonary process and the radiologist agree. CBC is within normal limits. BMP is unremarkable except for GFR 57 which appears to be new. High-sensitivity troponin is 5. Patient was given a dose of Zofran IV to help with her nausea and this did help her. At this point I feel she safe to be discharged home. I do not think she needs a delta troponin because she is not having chest pain and her symptoms have been ongoing all day long. She was given a prescription for Zofran for home. She will follow-up with her PCP. Impression: 1. Nausea 2. Dyspepsia Lab Data Attestation: I reviewed the patient's lab results. Labs: Laboratory Results - last 24 hr 11/22/21 11/22/21 20:08 20:08 WBC 8.5 RBC 4.34 Hgb 12.6 Hct 39.4 MCV 90.8 MCH 29.0 MCHC 32.0 RDW Std Deviation 44.9 H RDW Coeff of Jenny 13.3 Plt Count 348 MPV 9.6 Immature Gran % (Auto) 0.200 Neut % (Auto) 63.2 Lymph % (Auto) 26.3 Door % (Auto) 6.5 Eos % (Auto) 3.3 Baso % (Auto) 0.5 Absolute Neuts (auto) 5.3 Absolute Lymphs (auto) 2.22 Nucleated RBC % 0 Sodium 141 Potassium 3.6 Chloride 107 Carbon Dioxide 27.0 Anion Gap 7 BUN 18 Creatinine 1.02 Estim Creat Clear Calc 39.28 Est GFR (MDRD) Af Amer 69 Est GFR (MDRD) Non-Af 57 L BUN/Creatinine Ratio 17.6 Glucose 120 H Calcium 9.7 Troponin I High Sens 5 Radiography Diagnostic Testing: Clinical Impression(s) from Imaging Studies Chest X-Ray 11/22/21 20:17 IMPRESSION: Normal x-ray examination of the chest. Electronically Signed: Luiz Guzman DO at 20:28 EDT Reading Location ID and State: [address] [place] [address] Tel [phone], Service support , Discharge Plan Triage Chief Complaint: General Illness ED Provider: Warren Pantoja Dx/Rx/DC Orders Instructions: ED Vomiting (Adult) Prescriptions: New ondansetron 4 mg tablet,disintegrating 4 mg PO Q8H PRN (Reason: nausea and vomiting) Qty: 10 0RF No Action sertraline 100 mg tablet 100 mg PO DAILY Label Comments: take 1 tablet by mouth once daily bupropion HCl 150 mg tablet extended release 24 hr 150 mg PO DAILY Primary Care Provider: Rj Saucedo Referrals: Rj Saucedo MD [Primary Care Provider] - Disposition Disposition: Home, Self Care
[2021-11-22] MEDS: Ondansetron 4 MG/2 ML Vial IV (21:22)
[2021-11-22 21:25] VITALS: BP 144/82; PULSE 67; RESP 15; TEMP 36.6; O2SAT 98
== END 2021-11-22 21:46 | disposition home or self-care (01) ==
PROVIDERS: Emergency Provider Student in an Organized Health Care Education/Training Program; PCP Family Medicine; Visit Provider Student in an Organized Health Care Education/Training Program
DX: R10.13 Epigastric pain (principal); R11.0 Nausea; R14.2 Eructation
CPT/HCPCS: 71045; 80048; 84484; 85025; 93005; 96374; 99285; A4216; J2405

== ENCOUNTER → 2022-02-04 | Outpatient (CLI) | payer MEDICARE, OTHER, SELFPAY ==
--- NOTE | 2022-02-04 10:14 | BI_ITS ---
MAMMOGRAPHY - BILATERAL SCREENING REASON FOR EXAM: Female, 71 years old. Routine annual screening examination. PERTINENT HISTORY: Non-contributory. TECHNIQUE: Digital bilateral breast sanjuana (3D mammographic acquisition) in the CC and MLO projections. 2-D mediolateral oblique (MLO) and craniocaudad (CC) views of both breasts were obtained. CAD: Full Field Digital Mammography with Computer Added Detection was performed. COMPARISON: Comparison is made with prior study dated 02/01/2021 and 02/01/2020. FINDINGS: Breast Composition: The breasts are heterogeneously dense, which may obscure small masses. There are no dominant masses or suspicious calcifications. Stable scattered bilateral calcifications. No focal cluster is seen. No other significant abnormalities are identified. There has been no significant change since the prior study. BI/SCRN MAMM (CAD)W/SANJUANA BILAT IMPRESSION: Stable bilateral screening mammogram. Yearly follow-up mammogram recommended. (A) ASSESSMENT CATEGORY: BIRADS Category 2: Benign. A letter regarding these results will be sent to the patient by the facility within 30 days. Approximately 10% of breast cancers are not detected by mammography. A normal mammogram should not delay biopsy of a clinically suspicious abnormality. [id number] Electronically Signed: Umesh Walsh MD at 8:25 EST ,
== END | disposition home or self-care (01) ==
LOC: OPBI 10:08
PROVIDERS: PCP Family Medicine; Referring Provider Obstetrics & Gynecology; Visit Provider Obstetrics & Gynecology
DX: Z12.31 Encounter for screening mammogram for malignant neoplasm of breast (principal)
CPT/HCPCS: 77063; 77067

== ENCOUNTER → 2022-10-25 | Outpatient (CLI) | payer MEDICARE, OTHER, SELFPAY ==
[2022-10-25 12:14] LABS: Hemoglobin 12.6 g/dL (12.0-15.0); Mean Corp Hgb Conc 32.3 g/dL (32-36); Mean Corpuscular Hgb 29.5 pg (27.0-32.0); Mean Corpuscular Volume 91.3 fL (81-99); Mean Platelet Vol. 10.3 fl (6.2-12.0); Platelet Count 283 K/mm3 (150-450); RBC Distribution Width CV 13.4 % (11.6-14.6); RBC Distribution Width SD 45.1 fl (35.1-43.9); Red Blood Count 4.27 M/mm3 (4.2-5.4); White Blood Count 5.9 K/mm3 (4.4-11.0)
[2022-10-25 12:50] LABS: PTHIN 47.5 pg/mL (18.4-80.1)
[2022-10-25 12:52] LABS: Vitamin D,25 Hydroxy 67.5 ng/mL
[2022-10-25 12:53] LABS: Anion Gap 5 (5-15); BUN 18 mg/dL (7-18); BUN/Creat Ratio 22.4 RATIO (10-20); Calcium,Total 9.2 mg/dL (8.5-10.1); Chloride 106 mmol/L (98-107); Cholesterol 238 mg/dL (200); EST Glomerular Filtration Rate 75 mL/min (>60); Est Glom Filt Rate - Afr Amer 91 mL/min (>60); Free T3 3.1 pg/mL (2.18-3.98); Glucose 98 mg/dL (74-106); High Density Lipoprotein 59 mg/dL; Magnesium 2.4 mg/dL (1.6-2.6); Phosphorus 3.6 mg/dL (2.5-4.9); Sodium Level 139 mmol/L (136-145); T4 Free Direct 0.77 ng/dL (0.76-1.46); Thyroid Stim Hormone (TSH) 0.97 uIU/mL (0.358-3.74); Triglycerides 151 mg/dL; Very Low Density Lipoprotein 30 mg/dL (5-40)
[2022-10-25 15:33] LABS: Ionized Calcium 4.97 mg/dL (4.36-5.20)
[2022-10-25 23:17] LABS: Ionized Calcium Order ORDER TUBE
== END | disposition home or self-care (01) ==
PROVIDERS: PCP Family Medicine; Referring Provider Family Medicine; Visit Provider Family Medicine
DX: M81.0 Age-related osteoporosis without current pathological fracture (principal); E04.1 Nontoxic single thyroid nodule; F41.1 Generalized anxiety disorder; Z13.220 Encounter for screening for lipoid disorders
CPT/HCPCS: 36415; 80048; 80061; 82306; 82330; 83735; 83970; 84100; 84439; 84443; 84481; 85027

== ENCOUNTER → 2022-11-04 | Outpatient (CLI) | payer MEDICARE, OTHER, SELFPAY ==
--- NOTE | 2022-11-04 12:16 | US_ITS ---
EXAM: US SOFT TISSUES HEAD AND NECK, THYROID CLINICAL INDICATION: THYROID NODULE TECHNIQUE: Nelson scale and color doppler imaging was performed of the thyroid gland. COMPARISON: US Thyroid dated 08/07/2021 and 08/02/2020 FINDINGS: LEFT THYROID LOBE: Left thyroid lobe measures 4.0 x 1.6 x 1.2 cm. Stable 4 mm nodule. Stable small colloid cysts. Homogeneous echotexture with normal vascularity. RIGHT THYROID LOBE: Right thyroid lobe measures 4.2 x 2.2 x 1.9 cm. No significant change in the large mass which occupies most of the right thyroid lobe containing complex cystic and solid components. This nodule is mixed cystic and solid, hyperechoic or isoechoic, [id number], is lobulated or irregular and contains no echogenic foci. TI-RADS points: 4. TI-RADS category: TR4. This nodule is moderately suspicious. Recommend correlation with FNA. Stable small colloid cysts. ISTHMUS: Isthmus measures 2 mm in AP dimension. No thyroid nodules are present. US/Thyroid IMPRESSION: Stable thyroid ultrasound. Follow up recommendations as described above. Electronically Signed: Gunnar Kirby MD at 10:28 EDT ,
== END | disposition home or self-care (01) ==
PROVIDERS: PCP Family Medicine; Referring Provider Family Medicine; Visit Provider Family Medicine
DX: E04.1 Nontoxic single thyroid nodule (principal)
CPT/HCPCS: 76536

== ENCOUNTER → 2022-12-09 | Outpatient (CLI) | payer MEDICARE, OTHER, SELFPAY ==
--- NOTE | 2022-12-09 10:00 | RAD_ITS ---
STUDY: X-RAY - ESOPHAGUS (BARIUM SWALLOW) WITH FLUOROSCOPY REASON FOR EXAM: Female, 72 years old. DYSPHAGIA TECHNIQUE: 17 view(s) of the esophagus were obtained following swallowing of barium.. FLUOROSCOPY TIME (if supplied): (30 seconds) minutes/seconds. 8.74 mGy COMPARISON: None. FINDINGS: There is no demonstrated esophageal foreign body. There is no demonstrated stricture or mucosal abnormality. Normal gastroesophageal junction, without a demonstrated hiatal hernia. The patient ingested a 12 mm tablet of barium without any difficulty. There is atherosclerotic tortuosity of the aortic arch and descending thoracic aorta. Normal visualized pulmonary parenchyma. There are degenerative changes of the visualized thoracic spine. RAD/Esophagus Dual Contrast IMPRESSION: Normal plain film x-ray examination (barium swallow) of the esophagus. Electronically Signed: Umesh Walsh MD at 14:27 EDT ,
== END | disposition home or self-care (01) ==
LOC: RAD 09:57
PROVIDERS: PCP Family Medicine; Referring Provider Family Medicine; Visit Provider Family Medicine
DX: R13.10 Dysphagia, unspecified (principal)
CPT/HCPCS: 74221

== ENCOUNTER → 2023-05-15 | Outpatient (CLI) | payer MEDICARE, OTHER, SELFPAY ==
--- NOTE | 2023-05-15 10:55 | BI_ITS ---
MAMMOGRAPHY - BILATERAL SCREENING REASON FOR EXAM: Female, 72 years old. Routine annual screening examination. PERTINENT HISTORY: Non-contributory. TECHNIQUE: Digital bilateral breast sanjuana (3D mammographic acquisition) in the CC and MLO projections. 2-D mediolateral oblique (MLO) and craniocaudad (CC) views of both breasts were obtained. CAD: Full Field Digital Mammography with Computer Added Detection was performed. COMPARISON: Comparison is made with prior study February 04, 2022 and February 01, 2021. FINDINGS: Breast Composition: The breasts are extremely dense, which lowers the sensitivity of mammography. There are no dominant masses or suspicious calcifications. No other significant abnormalities are identified. There has been no significant change since the prior study. BI/SCRN MAMM (CAD)W/SANJUANA BILAT IMPRESSION: Stable bilateral screening mammogram. Yearly follow-up mammogram recommended. (A) ASSESSMENT CATEGORY: BIRADS Category 1: Negative. A letter regarding these results will be sent to the patient by the facility within 30 days. Approximately 10% of breast cancers are not detected by mammography. A normal mammogram should not delay biopsy of a clinically suspicious abnormality. [id number] Electronically Signed: Umesh Walsh MD at 12:36 EDT ,
== END | disposition home or self-care (01) ==
LOC: OPBI 10:55
PROVIDERS: PCP Family Medicine; Referring Provider Obstetrics & Gynecology; Visit Provider Obstetrics & Gynecology
DX: Z12.31 Encounter for screening mammogram for malignant neoplasm of breast (principal)
CPT/HCPCS: 77063; 77067

== ENCOUNTER → 2023-09-04 | Outpatient (CLI) | payer MEDICARE, OTHER, SELFPAY ==
--- NOTE | 2023-09-04 13:40 | BD_ITS ---
STUDY: DUAL ENERGY X-RAY ABSORPTIOMETRY / DXA REASON FOR EXAM: Female, 73 years old. Bone Density scan TECHNIQUE: Bone Mineral Density (BMD) measurements of lumbar spine and bilateral hips were obtained. COMPARISON: Comparison is made with prior study dated August 07, 2021. FINDINGS: Lumbar Spine (L1-L4): g/cm2 (1.083) / T-score (0.3) / Z-score (2.5) Findings are suggestive of normal bone density with a low fracture risk. Left Femur Total: g/cm2 (0.806) / T-score (-1.1) / Z-score (0.5) Left Femoral Neck: g/cm2 (0.609) / T-score (-2.2) / Z-score (-0.3) Right Femur Total: g/cm2 (0.924) / T-score (-0.1) / Z-score (1.4) Right Femoral Neck: g/cm2 (0.684) / T-score (-1.5) / Z-score (0.4) The T-Scores on the most recent prior examination were: Lumbar Spine (L1-L4): There has been improvement of bone density since the previous examination. Left Femur Total: which represents an improvement of 5.4%. Right Femur Total: which represents an improvement of 2%. BD/Dexa Bone Density Study IMPRESSION: The patient is considered osteopenic as outlined below according to World Julio Organization (WHO) criteria with a high fracture risk. There has been improvement of bone density since the previous examination. Reference Information: The T-score is the number of standard deviations above or below the standard which is normal for young adults at their peak bone mineral density. The World Health Organization (WHO) interprets the T-scores as follows: Above -1 Normal bone density Between -1 and -2.5 Osteopenia Equal to / or below -2.5 Osteoporosis As a practical clinical guideline, osteopenia may be graded as follows: Mild -1 through -1.5 Moderate -1.6 through -2.0 Severe -2.1 through -2.4 The Z-score is the number of standard deviations above or below age-matched controls. A Z-score of less than -1.5 would be considered abnormal. References: 1. NIH Osteoporosis and Related Bone Diseases www osteo.org 2. International Society for Clinical Densitometry www iscd.org 3. National Osteoporosis Foundation www nof.org Electronically Signed: Umesh Walsh MD at 8:50 EDT ,
== END | disposition home or self-care (01) ==
LOC: OPBD 13:35
PROVIDERS: PCP Family Medicine; Referring Provider Obstetrics & Gynecology; Visit Provider Obstetrics & Gynecology
DX: M85.89 Other specified disorders of bone density and structure, multiple sites (principal)
CPT/HCPCS: 77080

== ENCOUNTER → 2024-02-09 | Outpatient (CLI) | payer MEDICARE, OTHER, SELFPAY ==
--- NOTE | 2024-02-09 12:26 | US_ITS ---
STUDY: THYROID ULTRASOUND REASON FOR EXAM: Female, 73 years old. 1 year fu nodule TECHNIQUE: Ultrasound evaluation of the thyroid was performed with real-time and static banda-scale imaging. COMPARISON: 11/04/2022 FINDINGS: RIGHT LOBE: The right lobe of the thyroid gland measures 4.5 x 2.4 x 2.2 cm. There is a homogeneous echotexture. Nodule 1: No change in the 35 x 20 x 21 mm mixed cystic and solid isoechoic wire than tall ill-defined margined nodule with no echogenic foci (TR 2) in the mid right lobe consistent with an adenoma. LEFT LOBE: The left lobe of the thyroid gland measures 3.9 x 1.5 x 1.1 cm. There is a homogeneous echotexture. There are no demonstrated solid, cystic or complex lesions. ISTHMUS: The isthmus measures 1 mm thick. . The regional lymph nodes are normal. US/Thyroid IMPRESSION: No change large adenoma in the right lobe. Electronically Signed: Missael Mancilla MD at 12:33 EST ,
== END | disposition home or self-care (01) ==
LOC: US 12:26
PROVIDERS: PCP Family Medicine; Referring Provider Family Medicine; Visit Provider Family Medicine
DX: E04.1 Nontoxic single thyroid nodule (principal)
CPT/HCPCS: 76536

== ENCOUNTER → 2024-02-09 | Outpatient (CLI) | payer MEDICARE, OTHER, SELFPAY ==
[2024-02-09 15:19] LABS: Hematocrit 39.7 % (37-47); Hemoglobin 12.6 g/dL (12.0-15.0); Mean Corp Hgb Conc 31.7 g/dL (32-36); Mean Corpuscular Hgb 29.1 pg (27.0-32.0); Mean Corpuscular Volume 91.7 fL (81-99); Mean Platelet Vol. 10.5 fl (6.2-12.0); Platelet Count 317 K/mm3 (150-450); RBC Distribution Width CV 13.2 % (11.6-14.6); RBC Distribution Width SD 44.7 fl (35.1-43.9); Red Blood Count 4.33 M/mm3 (4.2-5.4); White Blood Count 5.6 K/mm3 (4.4-11.0)
[2024-02-09 15:38] LABS: Vitamin D,25 Hydroxy 80.4 ng/mL
[2024-02-09 15:47] LABS: ALB/GLOB Ratio 1.2 RATIO (0.9-2.4); AST(SGOT) 17 U/L (15-37); Alanine Aminotransfer ALT/SGPT 22 U/L (13-56); Alkaline Phosphatase 40 U/L (45-117); Anion Gap 4 (5-15); BUN 15 mg/dL (7-18); BUN/Creat Ratio 19.8 RATIO (10-20); Chloride 108 mmol/L (98-107); Cholesterol 245 mg/dL (200); Creatinine, Serum 0.76 mg/dL (0.55-1.02); EST Glomerular Filtration Rate 80 mL/min (>60); Est Glom Filt Rate - Afr Amer 97 mL/min (>60); Globulin 3.2 g/dL (2.2-4.2); Glucose 99 mg/dL (74-106); High Density Lipoprotein 72 mg/dL; Protein, Total 7.2 g/dL (6.4-8.2); Sodium Level 140 mmol/L (136-145); T4 Free Direct 0.83 ng/dL (0.76-1.46); Triglycerides 75 mg/dL; Very Low Density Lipoprotein 15 mg/dL (5-40)
== END | disposition home or self-care (01) ==
LOC: MFPLAB 11:27
PROVIDERS: PCP Family Medicine; Referring Provider Family Medicine; Visit Provider Family Medicine
DX: E78.5 Hyperlipidemia, unspecified (principal); R79.89 Other specified abnormal findings of blood chemistry; M81.0 Age-related osteoporosis without current pathological fracture
CPT/HCPCS: 36415; 80053; 80061; 82306; 84439; 84443; 85027

== ENCOUNTER → 2024-05-31 | Outpatient (CLI) | payer MEDICARE, SELFPAY ==
--- NOTE | 2024-05-31 10:34 | BI_ITS ---
EXAM: SCRN MAMM (CAD)W/SANJUANA BILAT DATE: 05/31/2024 CLINICAL HISTORY: F, Age 73 y/o , SCREEN FOR BREAST CANCER BREAST CANCER RISK ASSESSMENT: Has not been calculated. TECHNIQUE: Bilateral screening digital breast tomosynthesis with 2D and 3D images. Computer aided detection. COMPARISON: Prior exam(s) dated 05/15/2023 and 02/04/2022. FINDINGS: TISSUE DENSITY: The breast tissue is heterogenously dense, which may obscure small masses. Bilateral Breast Mammographic Findings: There are no suspicious masses, suspicious microcalcifications, architectural distortion or secondary sign of malignancy identified in either breast. Benign-appearing macrocalcifications and round microcalcifications are seen in both breast. Stable nodular densities are seen in both breasts. BI/SCRN MAMM (CAD)W/SANJUANA BILAT IMPRESSION: Right Breast: BIRADS 2 BENIGN FINDING. Left Breast: BIRADS 2 BENIGN FINDING. OVERALL FINAL ASSESSMENT: BIRADS 2 BENIGN FINDING RECOMMENDATION: Routine annual follow-up in 1 Year A letter with findings and recommendations will be mailed to the patient. Reading Location: [id number]
== END | disposition home or self-care (01) ==
LOC: OPBI 10:19
PROVIDERS: PCP Family Medicine; Referring Provider Obstetrics & Gynecology; Visit Provider Obstetrics & Gynecology
DX: Z12.31 Encounter for screening mammogram for malignant neoplasm of breast (principal)
CPT/HCPCS: 77063; 77067

== ENCOUNTER → 2024-06-28 | Outpatient (CLI) | payer MEDICARE, SELFPAY ==
[2024-06-28 18:46] LABS: Hematocrit 36.5 % (37-47); Hemoglobin 11.9 g/dL (12.0-15.0); Mean Corp Hgb Conc 32.6 g/dL (32-36); Mean Corpuscular Hgb 29.2 pg (27.0-32.0); Mean Corpuscular Volume 89.7 fL (81-99); Mean Platelet Vol. 10.2 fl (6.2-12.0); Platelet Count 308 K/mm3 (150-450); RBC Distribution Width CV 13.6 % (11.6-14.6); RBC Distribution Width SD 44.3 fl (35.1-43.9); Red Blood Count 4.07 M/mm3 (4.2-5.4); White Blood Count 8.2 K/mm3 (4.4-11.0)
[2024-06-28 18:50] LABS: Erythrocyte Sedimentation Rate 6 mm/hr (0-30)
[2024-06-28 19:07] LABS: ALB/GLOB Ratio 1.8 RATIO (0.9-2.4); AST(SGOT) 20 U/L (<=31); Alanine Aminotransfer ALT/SGPT 16 U/L (<=34); Albumin, Serum 4.6 g/dL (3.4-4.8); Alkaline Phosphatase 48 U/L (35-104); Anion Gap 12 (5-15); BUN 20 mg/dL (4-19); BUN/Creat Ratio 25.3 RATIO (10-20); Chloride 104 mmol/L (98-108); Creatinine, Serum 0.81 mg/dL (0.70-1.20); EST Glomerular Filtration Rate 78 (>60); Globulin 2.6 g/dL (2.2-4.2); Glucose 88 mg/dL (70-99); Potassium 3.7 mmol/L (3.3-5.1); Protein, Total 7.2 g/dL (5.9-8.4); Sodium Level 141 mmol/L (133-145)
[2024-06-28 20:02] LABS: Iron 80 ug/dL (50-170)
[2024-06-28 20:07] LABS: Ferritin 53 ng/mL (22-378); Vitamin B12 277 pg/mL (180-914); Vitamin D,25 Hydroxy 59.9 ng/mL (30-100)
== END | disposition home or self-care (01) ==
LOC: MFPLAB 16:26
PROVIDERS: PCP Family Medicine; Referring Provider Family Medicine; Visit Provider Family Medicine
DX: R53.83 Other fatigue (principal)
CPT/HCPCS: 36415; 80053; 82306; 82607; 82728; 83540; 84443; 85027; 85652

== ENCOUNTER → 2024-09-27 | Outpatient (CLI) | payer MEDICARE, SELFPAY | END | disposition home or self-care (01) | LOC: CT 14:36 | PROVIDERS: PCP Family Medicine; Referring Provider Family Medicine; Visit Provider Family Medicine | DX: E78.5 Hyperlipidemia, unspecified (principal) | CPT/HCPCS: 75571; 76380 ==

== ENCOUNTER 2024-10-28 20:19 | Emergency (ER) | payer MEDICARE, SELFPAY ==
[2024-10-28 20:19] VITALS: BP 130/66; PULSE 71; RESP 14; TEMP 36.7; O2SAT 99; BMI 24.1
--- NOTE | 2024-10-28 20:47 | EX.ED.GENINJ ---
HPI History of Present Illness Chief Complaint: Laceration Narrative Narrative: Chief complaint and HPI: 74-year-old female presents for evaluation of finger laceration. Patient states her recently sharpened the knives today. States that she cut her left second finger on one of the knives while putting away the dishes. Not on blood thinners. Denies numbness or tingling. Review of systems: See HPI Medications: As listed on the chart Allergies: As listed on the chart PFSH: Per chart Vital signs: As listed on the chart. Reviewed. Physical exam: Gen: A&O x3, NAD Head: Normocephalic, atraumatic Eyes: No sclera icterus, conjunctiva clear ENT: Moist mucous membranes CV: Regular rate Resp: Nonlabored respirations Musc: Full ROM, no deformity, finger laceration to the distal left second finger that will need repaired, radial pulse +2, sensation intact, compartments soft, good capillary refill, no active bleeding Skin: Warm, dry Neuro: Alert, oriented, grossly intact, sensation intact Psych: Cooperative, appropriate mood and affect [facility] Medical History Carpal tunnel syndrome Trigger finger of both hands Post-menopausal Anxiety History of thyroid nodule History of steroid therapy Osteoporosis Ulcer Shortness of breath on exertion Non-smoker Leg cramps Irregular heart beat Migraine headache Restless legs Back pain Injury of head and neck History of abnormal cervical Pap smear Home Medications ?Medication ?Instructions ?Recorded ?Last Taken ?Type sertraline 100 mg tablet 25 mg PO DAILY 07/15/23 Unknown History benzonatate 200 mg capsule 200 mg PO TID PRN cough #20 caps 08/13/23 Unknown Rx methylprednisolone 4 mg tablets in See Rx Instructions PO PER PKG DIR 08/13/23 Unknown Rx a dose pack (Medrol (Chepe)) #21 tabs minoxidil 2.5 mg tablet mg PO 04/16/24 Unknown History sertraline 50 mg tablet mg PO DAILY 04/16/24 Unknown History Allergy/AdvReac Type Severity Reaction Status Date / Time Sulfa (Sulfonamide Allergy Rash Verified 10/28/24 20:19 Antibiotics) Family History Mother Osteoporosis Congestive heart failure Rheumatoid arthritis Hypertension A-fib Arthritis High cholesterol Father Heart disease High cholesterol Brother Heart disease Surgical History H/O LEEP History of back surgery H/O tubal ligation History of carpal tunnel surgery Social History household members: spouse housing: house Smoking Status: Never smoker alcohol intake: never substance use type: does not use caffeine: Yes what type of physical activity do you participate in: none seatbelt use: always do you feel safe at home: Yes additional social history: [employer]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 EXAM Physical Exam Const Vital Signs: 10/28/24 20:19 Temperature 98.1 F Temperature Source Oral Pulse Rate 71 Respiratory Rate 14 Blood Pressure 130/66 H Blood Pressure Mean 87 Pulse Ox 99 Oxygen Delivery Method Room Air MDM MDM MDM Narrative Medical decision making narrative: 74-year-old female presents for evaluation of finger laceration. Patient states her recently sharpened the knives today. States that she cut her left second finger on one of the knives while putting away the dishes. Not on blood thinners. Denies numbness or tingling. Patient has a finger laceration to the left distal left second finger. This require repair. Patient tolerated repair well. Patient stable to discharge home. Monitor for signs of infection. Sutures need to be removed in 7 to day days. Patient stable to discharge home. Laceration Repair Indication: Laceration Location: Left second distal finger Consent: Risks, benefits, and alternatives discussed with patient and consent obtained Procedure: A time out was performed. The area was prepped and draped in the usual sterile fashion. Local anesthesia was achieved using 1% Lidocaine without epinephrine as a digital block. The wound was copiously irrigated and cleaned. 6 sutures were placed using 4-0 Ethilon in an interrupted fashion. The estimated blood loss was minimal. A dressing was applied to the area with Bacitracin. The patient tolerated the procedure well without complications. Foreign Material: None Debridement: None Follow-up: Anticipatory guidance, as well as standard post-procedure care, was explained. Return precautions are given. Follow-up visit set for suture removal and evaluation of the laceration. Impression: 1. Left finger laceration, status post suture repair Discharge Plan Triage Chief Complaint: Laceration ED Provider: Anderson Cantrell Dx/Rx/DC Orders Clinical Impression: Finger laceration Instructions: ED Laceration, All Closures Prescriptions: No Action sertraline 100 mg tablet 25 mg PO DAILY Patient Comments: take 1 tablet by mouth once daily methylprednisolone [Medrol (Chepe)] 4 mg tablets,dose pack See Rx Instructions PO PER PKG DIR Qty: 21 0RF Rx Instructions: PO PER PKG DIR benzonatate 200 mg capsule 200 mg PO TID PRN (Reason: cough) Qty: 20 0RF minoxidil 2.5 mg tablet PO Patient Comments: [NO ORIGINAL SIG] sertraline 50 mg tablet PO DAILY Primary Care Provider: Néstor Saucedo Referrals: Nétsor Saucedo MD [Primary Care Provider] - 3-5 Days Activity Restrictions/Additional Instructions: Follow-up with primary care physician. Monitor for signs of infection. Sutures need to be removed in 7 to 10 days. Okay to shower in 24 hours. Let soapy water run over the finger but do not scrub or soak in water. No lakes, ruiz, oceans, bathtubs, hot tubs until fully healed. Print Language: Monegasque Disposition Disposition: Home, Self Care
[2024-10-28 21:16] VITALS: BP 109/71; PULSE 71; RESP 14; TEMP 36.7; O2SAT 98
[2024-10-28] MEDS: Lidocaine 1% (20 ml mdv) 20 ML Vial INFILT (21:23)
== END 2024-10-28 21:28 | disposition home or self-care (01) ==
LOC: ED 21:18
PROVIDERS: Emergency Provider Surgery; PCP Family Medicine; Visit Provider Surgery
DX: S61.211A Laceration without foreign body of left index finger without damage to nail, initial encounter (principal); W26.0XXA Contact with knife, initial encounter
CPT/HCPCS: 12001; 99283

== ENCOUNTER 2025-02-04 12:38 | Outpatient (CLI) | payer OTHER, SELFPAY ==
--- OUTSIDE RECORDS SUMMARY | 2025-02-04 13:05 | XMS RPT_ITS | CCD ---
Author Organization 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 Rj Saucedo Primary Care Provider Dr. Alejandro Canas Attending Provider Dr. Rj Saucedo Referring Provider Dr. Stephy Banerjee Attending Provider [phone] Dr. Rj Saucedo Primary Care Provider Dr. Rj Saucedo Referring Provider [facility] CLEANER FURNITURE, CLEANER FURNITURE-Lyndsey Shields Attending Provider Néstor Saucedo MD Primary Care Provider Dr. Néstor Saucedo MD Primary Care Provider Dr. Néstor Saucedo MD Attending Provider Dr. Néstor Saucedo MD Referring Provider Dr. Sven Sanders MD Attending Provider Dr. Mariaelena Pino MD Referring Provider Dr. Stephy Banerjee MD Attending Provider Dr. Stephy Banerjee MD Referring Provider [phone] Dr. Néstor Saucedo MD Primary Care Provider Dr. Néstor Saucedo MD Attending Provider Sheryl CHRIS, Dr. Palm Referring Provider [phone] Sheryl CHRIS, Dr. Palm Primary Care Provider Shalom Cortes Attending Provider [phone] Sheryl CHRIS, Dr. Palm Primary Care Provider Sheryl CHRIS, Dr. Palm Other Provider Kanika CHRIS, Dr. Crespo Attending Provider Sheryl CHRIS, Dr. Palm Primary Care Provider Sheryl CHRIS, Dr. Palm Referring Provider Sheryl CHRIS, Dr. Palm Attending Provider [facility] KIRKPATRICK, Dr. Barron Emergency Provider Sheryl CHRIS, Dr. Palm Primary Care Physicia n Shalom Cortes Attending Physician Sheryl CHRIS, Dr. Palm Attending Physician Sheryl CHRIS, Dr. Palm Nurse Practitioner Kanika CHRIS, Dr. Crespo Attending [facility] Dr. Barron Attending Physician [facility] KIRKPATRICK, Dr[facility] Lavonne CHRIS, Dr. Keyes Attending Physician Sheryl, Christopher Primary Care Unavailable Stephy Banerjee Attending Unavailable Ranney, Christopher Referring Unavailable Zak Boudreaux Attending Unavailable Ranney, Christopher Primary Care Unavailable Ranney, Christjenniferer Consulting Unavailable Ranney, Christopher Referring Unavailable Ranney, Christopher Primary Care Unavailable Anderson Cantrell Attending Unavailabl e Ranney, Christopher Primary Care Unavailable Ranney, Néstor Attending Unavailable Ranney, Christopher Referring Unavailable Stephy Banerjee Attending Unavailable Stephy Banerjee Referring Unavailable Ranney, Christopher Primary Care Unavailable Ranney, Christopher Primary Care Unavailable Ranney, Néstor Attending Unavailable Néstor Saucedo Referring Unavailable Néstor Saucedo Referring Unavailable Néstor Saucedo Primary Care Unavailable Néstor Saucedo Attending Unavailable Néstor Saucedo Referring Unavailable Néstor Saucedo Primary Care Unavailable Nsétor Saucedo Attending Unavailable Néstor Saucedo Primary Care Unavailable Odette Mariaelena Referring Unavailable Sven Sanders Attending Unavailable Néstor Saucedo Primary Care Unavailable Shalom Cortes Attending Unavailable Néstor Saucedo Referring Unavailable Allergies Allergy Classification Reported Allergen(s) Allergy Type Date of Onset Reaction(s) Facility (2 sources) Sulfamethoxazole / Trimethoprim Drug Allergy 11-09-[address] [facility] (18 sources) Sulfonamides (Antibiotic); Translations: [Sulfa (Sulfonamide Antibiotics)] Allergy to substance 12-14-19 05 [facility] Medications Current Medications Medication Drug Class(es) Dates Sig (Normalized) Sig (Original) acetaminophen 325 mg / HYDROcodone bitartrate 10 mg oral tablet (20 sources) Opioid Agonist Start: 06-06-2020 take 1 tablet by mouth every six hours Hydrocodone-Aceta minophen Active 1 TABLET PO EVERY 6 HOURS 30 June 06, 2020 Start: 05-29-2020 End: 06-01-2020 Hydrocodone-Acetaminophen 1 TABLET tablet Discontinued 1 {tbl} PO EVERY 6 HOURS NEEDED as needed for Pain 12 3 0 May 29, 2020 May 31, 2020 12:00am June 01, 2020 12:03am Cervical radiculopathy Radiculopathy, cervical region Start: 05-29-2020 End: 06-01-2020 take 1 tablet by mouth every six hours as needed Hydrocodone-Acetaminophen Discontinued 1 TABLET PO EVERY 6 HOURS NEEDED 12 3 May 29, 2020 June 01, 2020 12:03am calcium carbonate 1500 mg / cholecalciferol 0.01 mg oral tablet (4 sources) Vitamin D Start: 06-14-2020 take 1 tablet by mouth once daily Calcium Carbonate-Vitamin D3 (Calcium 600 + D(3)) 600 mg(1,500mg) -400 unit Tablet Active 1 TABLET PO DAILY June 14, 2020 10:08am Collagen (1 source) COLLAGEN MISC Ac tive MEDICATION, NON-DATABASE (1 source) Start: 12-13-2004 MEDICATION, NON-DATABASE Calcium 600 mg +Vit D Take one(1) tablet two(2) times daily. 0 12/13/2004 Active minoxidil 2.5 mg oral tablet (6 sources) Arteriolar Vasodilator Start: 04-16-2024 Minoxidil 2.5 mg tablet Active mg PO April 16, 2024 1:00am Complies with drug therapy Multivit With Min-Folic Acid 0.4 mg tablet (1 source) Start: 11-22-2024 Multivit With Min-Folic Acid 0.4 mg tablet Active {tbl} PO November 22, 2024 12:00am Complies with drug therapy Multivitamin (Multi-Daily) Tablet (4 sources) Start: 06-14-2020 take 1 tablet by mouth once daily Multivitamin (Multi-Daily) Tablet Active 1 TABLET PO DAILY June 14, 2020 10:08am Start: 06-14-2020 take 1 tablet by noe th once daily Multivitamin (Multi-Daily) Tablet Active 1 TABLET PO DAILY June 14, 2020 12:00am MULTIVITAMIN TAB (1 source) Start: 12-13-2004 MULTIVITAMIN T AB Take one(1) tablet daily. 0 12/13/2004 Active Multivitamin With Minerals (Hair,Skin And Nails) tablet (4 sources) Start: 2020 take 1 tablet by mouth once daily Multivitamin With Minerals (Hair,Skin And Nails) tablet Active 1 TABLET PO DAILY 2020 3:18pm Start: 2020 take 1 tablet by noe th once daily Multivitamin With Minerals (Hair,Skin And Nails) tablet Active 1 TABLET PO DAILY 2020 12:00am ospemifene 60 mg oral tablet (4 sources) Start: 06-25-2021 take 1 tablet by mouth once daily at mealtime Ospemifene (Osphena) 60 mg tablet Active 60 MG PO DAILY June 25, 2021 12:00am must administer with food, preferably a high-fat meal Start: 10-26-2015 take 1 tablet by noe th once daily OSPHENA 60 MG TABS One tablet by mouth daily OSPEMIFENE [id number] Stephy Banerjee MD Zinc (4 sources) Start: 06-14-2020 take 50 mg by mouth once daily Zinc Active 50 MG PO DAILY June 14, 2020 10:08am Start: 06-14-2020 take 50 mg by mouth once daily Zinc Active 50 MG PO DAILY June 14, 2020 12:00am Completed/Discontinued Medications Medication Drug Class(es) Dates Sig (Normalized) Sig (Original) acetaminophen 325 mg / oxyCODONE hydrochloride 2.5 mg oral tablet (18 sources) Opioid Agonist Start: 11-08-2016 PERCOCET 2.5-325 MG TABS OXYCODONE-ACETAMINO PHEN [id number] Stephy Banerjee MD Start: 08-25-2016 End: 11-11-2017 Oxycodone-Acetaminophen 1 TA BLET tablet Discontinued 1 {tbl} PO EVERY 4 HOURS NEEDED as needed for Pain August 25, 2016 12:00am November 11, 2017 1:55pm Start: 08-25-2016 End: 11-11-2017 take 1 tablet by mouth every four hours as needed Oxycodone-Acetaminophen Discontinued 1 TABLET PO EVERY 4 HOURS NEEDED August 25, 2016 12:00am November 11, 2017 1:55pm benzonatate 200 mg oral capsule (6 sources) Non-narcotic Antitussive Start: 08-13-2023 End: 11-22-2024 take 1 capsule by mouth three times daily as needed for cough Benzonatate 200 mg capsule Discontinued 200 mg PO THREE TIMES A DAY as needed for cough August 13, 2023 12:00am November 22, 2024 10:12am 24 hr buPROPion hydrochloride 150 mg extended release oral tablet (12 sources) Aminoketone Start: 11-22-2021 End: 07-15-2023 take 1 tablet by mouth once daily Bupropion Hcl 150 mg tablet extended release 24 hr Discontinued 150 mg PO DAILY November 22, 2021 12:00am July 15, 2023 10:49am celecoxib 100 mg oral capsule (3 sources) Nonsteroidal Anti-inflammatory Drug Start: 11-08-2016 CELEBREX 100 MG CAPS CELECOXIB [id number] Stephy Banerjee MD take 1 capsule by mouth once santiago ly celecoxib (CELEBREX) 200 mg capsule Take 200 mg by mouth once daily. Active cyclobenzaprine hydrochloride 10 mg oral tablet (16 sources) Muscle Relaxant Start: 08-25-2016 End: 11-11-2017 take 1 tablet by mouth three times daily as needed for muscle spasms Cyclobenzaprine 10 MG tablet Discontinued 10 mg PO THREE TIMES A DAY as needed for Muscle Spasm 20 August 25, 2016 12:00am November 11, 2017 1:54pm diazePAM 2 mg oral tablet (16 sources) Benzodiazepine Start: 08-30-2016 End: 11-11-2017 take 1 tablet by mouth three times daily Diazepam 2 MG tablet Discontinued 2 mg PO THREE TIMES A DAY 20 August 30, 2016 12:00am November 11, 2017 1:55pm doxycycline hyclate 100 mg oral tablet (16 sources) Tetracycline-class Drug Start: 08-03-2018 End: 01-25-2019 take 1 tablet by mouth twice daily Doxycycline Hyclate 100 MG tablet Discontinued 100 mg PO TWICE A DAY August 03, 2018 12:00am January 25, 2019 9:56am gabapentin 300 mg oral capsule (4 sources) Anti-epileptic Agent Start: 03-03-2015 End: 11-08-2016 take 1 capsule by mouth three times daily GABAPENTIN 300 MG CAPS 1 po tid GABAPENTIN [id number] Filemon Lombardo methylPREDNISolone 4 mg oral tablet (6 sources) Corticosteroid Start: 08-13-2023 End: 11-22-2024 take 1 tablet by mouth once Methylprednisolone (Medrol (Chepe)) 4 mg tablets,dose pack Discontinued 0 PO per package directions August 13, 2023 12:00am November 22, 2024 10:12am PO PER PKG DIR ondansetron 4 mg disintegrating oral tablet (12 sources) Serotonin-3 Receptor Antagonist Start: 11-22-2021 End: 07-15-2023 take 1 tablet by mouth every eight hours as needed for nausea and vomiting Ondansetron 4 mg tablet,disintegrating Discontinued 4 mg PO Q8H as needed for nausea and vomiting November 22, 2021 12:00am July 15, 2023 10:49am predniSONE 5 mg oral tablet (16 sources) Start: 08-30-2016 End: 11-11-2017 take 1 tablet by mouth once daily Prednisone 5 MG tablet Discontinued 5 mg PO DAILY August 30, 2016 12:00am November 11, 2017 1:55pm sertraline 50 mg oral tablet (20 sources) Serotonin Reuptake Inhibitor Start: 04-16-2024 End: 11-22-2024 take 1 mg by mouth once daily Sertraline 50 mg tablet Discontinued mg PO DAILY April 16, 2024 1:00am November 22, 2024 10:12am Start: 07-15-2023 Sertraline 100 mg tablet Active 25 mg PO DAILY July 15, 2023 10:49am Complies with drug therapy Start: 2020 End: 07-15-2023 take 1 tablet by mouth once daily Sertraline 100 mg tablet Discontinued 100 mg PO DAILY 2020 12:00am July 15, 2023 10:49am Start: 08-30-2016 End: 2020 take 1 tablet by mouth once daily Sertraline 50 MG tablet Discontinued 50 mg PO DAILY August 30, 2016 12:00am 2020 3:17pm take 2 tablets by mo uth once daily sertraline (ZOLOFT) 25 mg tablet Take 50 mg by mouth once daily. Active Problems Active Problems Problem Classification Problem Date Documented Da te Episodic/Chronic Disorders of lipid metabolism (2 sources) Hyperlipidemia, unspecified; Translations: [Hyperlipidemia, unspecified] Onset: 10-26-2024 Chronic Genitourinary symptoms and ill-defined conditions (16 sources) Genuine stress incontinence; Translations: [Stress incontinence (female) (male)] Onset: 11-22-2024 Chronic Comment on above: PFPT referreal, jamaal dimas. Intracranial injury (16 sources) Concussion injury of body structure; Translations: [Concussion with loss of consciousness of unspecified duration, initial encounter] 08-04-2018 Episodic Open wounds of extremities (8 sources) Puncture wound of right foot; Translations: [Puncture wound without foreign body, right foot, initial encounter] 08-20-2024 Episodic Open wounds of extremities (1 source) Laceration without foreign body of left index finger without damage to nail, initial encounter; Translations: [Laceration without foreign body of left index finger without damage to nail, initial encounter] Onset: 11-01-2024 Episodic Osteoporosis (3 sources) Osteoporosis; Translations: [Age-related osteoporosis without current pathological fracture] Onset: 04-01-2014 11-08-2016 Chronic Other bone disease and musculoskeletal deformities (17 sources) Osteopenia; Translations: [Other specified disorders of bone density and structure, unspecified site] 06-15-2021 Episodic Comment on above: DEXA ordered but on prolia through PCP. Other bone disease and musculoskeletal deformities (1 source) Other specified disorders of bone density and structure, unspecified site; Translations: [Other specified disorders of bone density and structure, unspecified site] Onset: 11-22-2024 Episodic Other female genital disorders (18 sources) Dyspareunia; Translations: [Dyspareunia] Chronic Comment on above: failed pills and cre am in past, will restart osphen to use with PFPT. PFPT ordered Other female genital disorders (2 sources) Superficial (introital) dyspareunia; Translations: [Superficial (introital) dyspareunia] Onset: 11-08-2016 11-08-2016 Other injuries and conditions due to external causes (16 sources) Head and neck injury; Translations: [Unspecified injury of head, initial encounter] 06-14-2020 Episodic Comment on above: ddd cervical/numbnes s tingling right arm/hand Other screening for suspected conditions (not mental disorders or infectious disease) (1 source) Encounter for screening mammogram for malignant neoplasm of breast; Translations: [Encounter for screening mammogram for malignant neoplasm of breast] Onset: 11-22-2024 Episodic Other upper respiratory infections (13 sources) Upper respiratory infection; Translations: [Acute upper respiratory infection, unspecified] Episodic Spondylosis; intervertebral disc disorders; other back problems (3 sources) Prolapsed lumbar intervertebral disc; Translations: [Displacement of lumbar intervertebral disc without myelopathy] Onset: 03-24-2015 03-27-2015 Chronic Thyroid disorders (3 sources) Non-toxic uninodular goiter; Translations: [Nontoxic single thyroid nodule] Onset: 12-26-2009 12-26-2009 Chronic Past or Other Problems Problem Classification Problem Date Documented Date Episodic/Chronic Malaise and fatigue (1 source) Other fatigue; Translations: [Other fatigue] Onset: 07-01-2024 Episodic Other connective tissue disease (2 sources) Neuritis; Translations: [Neuralgia and neuritis, unspecified] Onset: 03-03-2015 03-06-2015 Episodic Other eye disorders (9 sources) Dermatochalasis of right upper eyelid; Translations: [Dermatochalasis of both upper eyelids] Onset: 05-12-2024 04-17-2024 Episodic Other eye disorders (1 source) Dermatochalasis of left upper eyelid; Translations: [Dermatochalasis of left upper eyelid] Onset: 05-12-2024 Episodic Sprains and strains (2 sources) Strain of left quadriceps muscle, fascia and tendon, initial encounter; Translations: [Strain of left quadriceps muscle, fascia and tendon, initial encounter] Onset: 03-03-2015 03-06-2015 Episodic Results Test Name Value Interpretation Reference Range Facility University President Office Visit Reporton 11-22-2024 University President Office Visit Report [facility] [address], [address] [place] [address] OFFICE VISIT Date of Service: 11/22/24 MR#: [id number] Acct: [id number] Name: KYLIE KWON Rep #: [id number] : 1950 Provider: Dr. Stephy canas MD Age/Sex: 74/F Location: [facility] Status: Signed Intake Vital Signs 04/16/24 13:28 10/28/24 20:19 11/22/24 10:09 Height 5 ft 1 in 5 ft 1 in 5 ft 1 in Weight: 125 lb 3 oz BMI 23.6 BP 127/68 H Intake Visit Reasons: Annual ([employer]) Activities Leader Required: No Is patient in pain?: No Allergies Sulfa (Sulfonamide Antibiotics) Allergy (Verified 11/22/24 10:11) Rash Medications ???Medication ???Instructions ???Recorded ???Confirmed ???Type sertraline 100 mg tablet 25 mg PO DAILY 07/15/23 11/22/24 H istory minoxidil 2.5 mg tablet mg PO 04/16/24 11/22/24 History multivitamin with minerals-folic tab PO 11/22/24 11/22/24 History acid 0.4 mg tablet Is last menstrual period known: No Post menopausal: Yes Patient : No : No [facility] Medical History (Updated 11/05/24 @ 00:01 by Background Daemon) Carpal tunnel syndrome Trigger finger of both hands Post-menopausal Anxiety History of thyroid nodule History of steroid therapy Osteoporosis Ulcer Shortness of breath on exertion Non-smoker Leg cramps Irregular heart beat Migraine headache Restless legs Back pain Injury of head and neck History of abnormal cervical Pap smear Surgical History (Updated 11/22/24 @ 10:13 by Carolyn Leon) H/O eye surgery H/O LEEP History of back surgery H/O tubal ligation History of carpal tunnel surgery Family History Mother Osteoporosis Congestive heart failure Rheumatoid arthritis Hypertension A-fib Arthritis High cholesterol Father Heart disease High cholesterol Brother Heart disease Social History (Updated 11/22/24 @ 10:14 by Carolyn Leon) household members: spouse housing: house current occupational status: retired Smoking Status: Never smoker alcohol intake: never substance use type: does not use caffeine: Yes what type of physical activity do you participate in: none seatbelt use: always do you feel safe at home: Yes additional social history: 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 Date Name GA/Weeks Outcome Route Bth Weight Gen Labor Lgth Anesthesia Del Locatn Provider FOB Unknown 1972 Chirag live - full term Unknown 1675 Leonides live - full term HPI Encounter for routine gynecological examination Details: KYLIE KWON is a 74 year old who presents for annual exam. Last PAP: 2017 History of abnormal PAP: 05/31/2024 - normal Last mammogram: History of abnormal mammogram: Colon cancer screening: colonoscopy unsure when last done Other preventative health care screenings: PCP Sheryl Female Reproductive History Menopausal Symptoms: No hot flashes, No night sweats, No difficulty concentrating and No change in libido ROS Const Constitutional: Reports as per HPI; Denies fatigue, increased appetite, poor appetite, night sweats, weight gain or weight loss Cardio Card: Denies chest pain Resp Resp: Denies cough or dyspnea GI GI: Reports as per HPI and bloating; Denies abdominal pain, constipation, nausea or vomiting : Reports as per HPI, urinary incontinence and other; Denies difficulty voiding, dysuria, hematuria, hot flashes, nipple discharge, pelvic pain, prolapse symptoms, urinary frequency, urinary urgency, vaginal discharge, vaginal dryness, vaginal odor or vaginal pruritus Skin Skin/Breast: Denies changing lesions, breast mass, breast pain, breast skin changes or nipple discharge Psych Psych: Denies anxiety, change in libido, depression or difficulty concentrating Exam Const General: cooperative, healthy appearing, comfortable, no acute distress, well developed and well groomed HENMT Head: normal to inspection and normocephalic Ears: hearing grossly normal bilaterally and external ears normal Nose: external nose normal Face and sinus: normal facial exam Neck Neck: normal visual inspection, full ROM and no lymphadenopathy Thyroid: thyroid normal Chest Chest palpation inspection: normal inspection of the chest Breast inspection: normal inspection of the breasts and normal inspection of the axillae Breast palpation: normal palpation of the breasts, normal palpation of the axillae and no axillary lymphadenopathy Resp Effort Inspection: normal respiratory effort GI Inspection: normal (more content not included)... Normal [facility] Emergency Department Summary on 10-28-2024 Emergency Department Summary [facility] Medical Records Department [address] [place] [address] Emergency Department Summary 10/28/24 MR#: [id number] Acct: [id number] Name: KYLIE KWON FEI Rep #: [id number] : 1950 74 From: Anderson Cantrell DO PCP: Dr. Néstor Saucedo MD Status:PRE ER Location: ED HPI History of Present Illness Chief Complaint: Laceration Narrative Narrative: Chief complaint and HPI: 74-year-old female presents for evaluation of finger laceration. Patient states her recently sharpened the knives today. States that she cut her left second finger on one of the knives while putting away the dishes. Not on blood thinners. Denies numbness or tingling. Review of systems: See HPI Medications: As listed on the chart Allergies: As listed on the chart PFSH: Per chart Vital signs: As listed on the chart. Reviewed. Physical exam: Gen: A O x3, NAD Head: Normocephalic, atraumatic Eyes: No sclera icterus, conjunctiva clear ENT: Moist mucous membranes CV: Regular rate Resp: Nonlabored respirations Musc: Full ROM, no deformity, finger laceration to the distal left second finger that will need repaired, radial pulse +2, sensation intact, compartments soft, good capillary refill, no active bleeding Skin: Warm, dry Neuro: Alert, oriented, grossly intact, sensation intact Psych: Cooperative, appropriate mood and affect [facility] Medical History Carpal tunnel syndrome Trigger finger of both hands Post-menopausal Anxiety History of thyroid nodule History of steroid therapy Osteoporosis Ulcer Shortness of breath on exertion Non-smoker Leg cramps Irregular heart beat Migraine headache Restless legs Back pain Injury of head and neck History of abnormal cervical Pap smear Home Medications ???Medication ???Instructions ???Recorded ???Last Taken ???Type sertraline 100 mg tablet 25 mg PO DAILY 07/15/23 Unknown Hi story benzonatate 200 mg capsule 200 mg PO TID PRN cough #20 caps 0 08/13/23 Unknown Rx methylprednisolone 4 mg tablets in See Rx Instructions PO PER PKG D IR 08/13/23 Unknown Rx a dose pack (Medrol (Chepe)) #21 tabs minoxidil 2.5 mg tablet mg PO 04/16/24 Unknown History sertraline 50 mg tablet mg PO DAILY 04/16/24 Unknown Histo ry Allergy/AdvReac Type Severity Reaction Status Date / Time Sulfa (Sulfonamide Allergy Rash Verified 10/28/24 20:19 Antibiotics) Family History Mother Osteoporosis Congestive heart failure Rheumatoid arthritis Hypertension A-fib Arthritis High cholesterol Father Heart disease High cholesterol Brother Heart disease Surgical History H/O LEEP History of back surgery H/O tubal ligation History of carpal tunnel surgery Social History household members: spouse housing: house Smoking Status: Never smoker alcohol intake: never substance use type: does not use caffeine: Yes what type of physical activity do you participate in: none seatbelt use: always do you feel safe at home: Yes additional social history: [employer]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 EXAM Physical Exam Const Vital Signs: 10/28/24 20:19 Temperature 98.1 F Temperature Source Oral Pulse Rate 71 Respiratory Rate 14 Blood Pressure 130/66 H Blood Pressure Mean 87 Pulse Ox 99 Oxygen Delivery Method Room Air MDM MDM MDM Narrative Medical decision making narrative: 74-year-old female presents for evaluation of finger laceration. Patient states her recently sharpened the knives today. States that she cut her left second finger on one of the knives while putting away the dishes. Not on blood thinners. Denies numbness or tingling. Patient has a finger laceration to the left distal left second finger. This require repair. Patient tolerated repair well. Patient stable to discharge home. Monitor for signs of infection. Sutures need to be removed in 7 to day days. Patient stable to discharge home. Laceration Repair Indication: Laceration Location: Left second distal finger Consent: Risks, benefits, and alternatives discussed with patient and consent obtained Procedure: A time out was performed. The area was prepped and draped in the usual sterile fashion. Local anesthesia was achieved using 1% Lidocaine without epinephrine as a digital block. The wound was copiously irrigated and cleaned. 6 sutures were placed using 4-0 Ethilon in an interrupted fashion. The estimated blood loss was (more content not included)... Normal [facility] Coronary Angiography CTon Coronary Angiography CT [facility] Imaging Services [address] [place] [address] 09/27/24 1804 MR#: [id number] Acct: [id number] Name: KYLIE KWON Rep #: [id number] : 1950 74 From: Zak Boudreaux MD PCP: Dr. Néstor Saucedo MD Status:REG CLI Y Location: CT Calcium Scoring Date of Study:: 09/27/24 Indications Indications: High cholesterol family history Coronary Calcium Scoring: High-resolution Computed Tomographic imaging of the chest was performed on [09/27/2024], with particular attention paid to the coronary arteries. Images from the examination were analyzed for the presence and extent of coronary artery calcification , using coronary calcium quantification software. The patient tolerated the procedure well and there were no complications. The results of the coronary calcification analysis are provided below. Findings Coronary Artery Left Main (LM): 0 Left Anterior Descending (LAD): 0 Left Circumflex (LCX): 0 Right Coronary Artery (RCA): 0 Total Agatston Score: 0 Percentile Rankin Calcium Scoring Interpretation: Different methods to categorize the overall amount of coronary plaque. Overall amount CAC SIS Visual of coronary plaque P1 Mild -100 <2 1-2 vessels with mild amount of plaque P2 Moderate 101-300 3-4 1-2 vessels with moderate amount, 3 vessels with mild amount of plaque P3 Severe 301-999 5-7 3 vessels with moderate amount, 1 vessel with severe amount of plaque P4 Extensive >1000 >8 2-3 vessels with severe amount of plaque Conclusion: No atherosclerotic plaquing 09/27/24 1804 Date Zak Mccarthyigner Signature (if applicable): Date CC: Dr. Néstor Saucedo MD; Dr. Zak Boudreaux MD Signed Normal [facility] Limited Chest CT Cardiac Onl yon 09-27-[address] Cardiac Only [facility] Imaging Services [address] [place] [address] Cardiac Only MR#: [id number] Acct: [id number] Name: KYLIE KWON Rep #: [id number] : 1950 F 74 From: Umesh sheridan MD PCP: Dr. Néstor Saucedo MD Status: [facility] Study: Limited Chest CT Cardiac Only Date of Exam: Exam# [id number] Ordering Dr: Néstor Saucedo PROCEDURE: LIMITED CHEST CT CARDIAC ONLY 09/27/2024 REASON FOR EXAM: HYPERLIPIDEMIA, UNSPECIFIED TECHNIQUE: LIMITED CHEST CT CARDIAC ONLY CONTRAST: None One or more dose reduction techniques were used (e.g., Automated exposure control, adjustment of the mA and/or kV according to patient size, use of iterative reconstruction technique). RADIATION DOSE SUMMARY: CTDlvol: 12.19 mGy DLP: 170.66 mGycm COMPARISON: None FINDINGS: Proximal coronary artery calcification. Minimal linear scarring in the lingula segment of the left upper lobe. CT/Limited Chest CT Cardiac Only IMPRESSION: Minimal coronary artery calcification. Reading Location: [place] [address] CC: Dr. Néstor Saucedo MD Jboss Architect: Signed Normal [facility] Urgent Care Visit Reporton 0 08-20-2024 Urgent Care Visit Report [facility] [address], [address] [place] [address] OFFICE VISIT Date of Service: 08/20/24 MR#: [id number] Acct: [id number] Name: KYLIE KWON Rep #: [id number] : 1950 Provider: AMILCAR Main Age/Sex: 74/F Location: [facility] [place] Status: Signed with Addenda ADDENDUM by GABE Gutierrez on 08/20/24 at 0953 Office Procedure Documentation entered by Alba Gutierrez MA 08/20/24 09:53: Immunizations Boostrix Tdap 2.5 Lf unit-8 mcg-5 Lf/0.5 mL intramuscular syringe Performing Provider: AMILCAR Berry Performing Location: [facility] Administered by: Alba Gutierrez MA on 08/20/24 09:52 Dose Route Admin Location Dispensed Lot Number Expiration Date NDC Man ufacturer 0.5 mL IM Left Deltoid 0.5 mL [id number] 10/15/26 40124-878-87 [employer] VIS Given Date VIS Provided VIS Publication Date 08/20/24 Single Vaccine 24 Eligibility Eligibility Date Funding Source None Date cc: * Signed Intake Vital Signs 04/16/24 13:28 08/20/24 09:51 Height 5 ft 1 in Weight: 126 lb 6 oz BMI 23.8 BP 113/69 122/66 H Blood Pressure Location Rt brachial Position Sitting Sitting Respiration 18 16 Pulse 101 H 66 Temp 98.1 F 97.8 F Temp Source Oral Oral Pulse Oximetry (%) 96 98 Oxygen Delivery Method room air room air Intake Visit Reasons: STEPPED ON NAIL R FOOT/TETANUS SHOT Accompanied by: self Allergies Sulfa (Sulfonamide Antibiotics) Allergy (Verified 08/20/24 09:51) Rash Medications ???Medication ???Instructions ???Recorded ???Confirmed ???Type sertraline 100 mg tablet 25 mg PO DAILY 07/15/23 08/20/24 H istory benzonatate 200 mg capsule 200 mg PO TID PRN cough #20 caps 0 08/13/23 08/20/24 Rx methylprednisolone 4 mg tablets in See Rx Instructions PO PER PKG D IR 08/13/23 08/20/24 Rx a dose pack (Medrol (Chepe)) #21 tabs minoxidil 2.5 mg tablet mg PO 04/16/24 08/20/24 History sertraline 50 mg tablet mg PO DAILY 04/16/24 08/20/24 Hist ory Have you fallen in the past year?: No Nurse's Note: Patient stepped on a spike from gardening yesterday. [facility] Medical History Carpal tunnel syndrome Trigger finger of both hands Post-menopausal Anxiety History of thyroid nodule History of steroid therapy Osteoporosis Ulcer Shortness of breath on exertion Non-smoker Leg cramps Irregular heart beat Migraine headache Restless legs Back pain Injury of head and neck History of abnormal cervical Pap smear Surgical History H/O LEEP History of back surgery H/O tubal ligation History of carpal tunnel surgery Family History Mother Osteoporosis Congestive heart failure Rheumatoid arthritis Hypertension A-fib Arthritis High cholesterol Father Heart disease High cholesterol Brother Heart disease Social History household members: spouse housing: house Smoking Status: Never smoker alcohol intake: never substance use type: does not use caffeine: Yes what type of physical activity do you participate in: none seatbelt use: always do you feel safe at home: Yes additional social history: [employer]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 HPI HPI Details: KYLIE KWON, is a 74 F who presents to the office today for concern for stepping on a nail last night. Patient states that she stepped on a nail on her right foot and is not sure when her last tetanus imitation was. Patient does state that she cleaned it well and has had it covered since then. Patient denies numbness, tingling or loss of range of motion. No fever, chills, sweats. No other associated symptoms or alleviating/aggravatin g factors. ROS Const Constitutional: No other (6 system ROS completed with pertinent findings in the HPI otherwise normal.) Exam Const General: cooperative and healthy appearing Skin General: no rashes or lesions noted Neuro General: patient alert Extrem Other: Puncture wound bottom of the right foot without erythema, warmth or drainage. Psych Appearance: grossly normal Mental Status: mental status grossly normal Coding Level of Care Code Off vis,est,level 3 Diagnoses Puncture wound of right foot excluding toes without complication S91.331A Assessment and Plan Assessment and Plan (1) Puncture wound of right foot excluding toes without complication: Status: Acute Plan: Patient given Tdap in the of (more content not included)... Normal [facility] Anion gap in Serum or Plasma Ordered By: Néstor Saucedo on 06-28-2024 Anion gap [Moles/Vol] 12 mmol/L 5-15 [facility] BUN/creatinine ratioOrdered By: Néstor Saucedo on 06-28-2024 Urea nitrogen/Creatinine [Mass ratio] 25.3 mg/mg High 10-20 [facility] Bilirubin, totalOrdered By: Néstor Saucedo on 06-28-2024 Bilirubin [Mass/Vol] 0.40 mg/dL 0.00-1.30 [facility] CBC-Complete Blood Cnt No Di ffon 06-28-2024 Erythrocyte distribution width (RBC) [Ratio] 13.6 % Normal 11.6-14.6 [facility] Comment on above: Order Comment: Order Date: 06/24/24Order Info: [id number] - CBCOrder Info: [id number] - SED Performed By: #### L 101.9900, L500.4050, L503.6150, L501.9520, L503.6550, L100.0500 ####[facility] [address] [place], [address] Hematocrit (Bld) [Volume fraction] 36.5 % Low 37-47 [facility] Comment on above: Order Comment: Order Date: 06/24/24Order Info: [id number] - CBCOrder Info: [id number] - SED Performed By: #### L 101.9900, L500.4050, L503.6150, L501.9520, L503.6550, L100.0500 ####[facility] [address] [place], [address] Hemoglobin (Bld) [Mass/Vol] 11.9 g/dL Low 12.0-15.0 [facility] Comment on above: Order Comment: Order Date: 06/24/24Order Info: [id number] - CBCOrder Info: [id number] - SED Performed By: #### L 101.9900, L500.4050, L503.6150, L501.9520, L503.6550, L100.0500 ####[facility] [address] [place], [address] MCH (RBC) [Entitic mass] 29.2 pg Normal 27.0-32.0 [facility] Comment on above: Order Comment: Order Date: 06/24/24Order Info: [id number] - CBCOrder Info: 24893-0 - SED Performed By: #### L 101.9900, L500.4050, L503.6150, L501.9520, L503.6550, L100.0500 ####[facility] [address] [place], [address] MCHC (RBC) [Mass/Vol] 32.6 g/dL Normal 32-36 [facility] Comment on above: Order Comment: Order Date: 06/24/24Order Info: [id number] - CBCOrder Info: 23179-2 - SED Performed By: #### L 101.9900, L500.4050, L503.6150, L501.9520, L503.6550, L100.0500 ####[facility] [address] [place], [address] MCV (RBC) [Entitic vol] 89.7 fL Normal 81-99 [facility] Comment on above: Order Comment: Order Date: 06/24/24Order Info: [id number] - CBCOrder Info: 62323-8 - SED Performed By: #### L 101.9900, L500.4050, L503.6150, L501.9520, L503.6550, L100.0500 ####[facility] [address] [place], [address] Platelet mean volume (Bld) [Entitic vol] 10.2 fL Normal 6.2-12.0 [facility] Comment on above: Order Comment: Order Date: 06/24/24Order Info: [id number] - CBCOrder Info: [id number] - SED Performed By: #### L 101.9900, L500.4050, L503.6150, L501.9520, L503.6550, L100.0500 ####[facility] [address] [place], [address] Platelets (Bld) [#/Vol] 308 10*3/uL Normal 150-450 [facility] Comment on above: Order Comment: Order Date: 06/24/24Order Info: [id number] - CBCOrder Info: 11627-1 - SED Performed By: #### L 101.9900, L500.4050, L503.6150, L501.9520, L503.6550, L100.0500 ####[facility] [address] [place], [address] RBC (Bld) [#/Vol] 4.07 10*6/uL Low 4.2-5.4 [facility] Comment on above: Order Comment: Order Date: 06/24/24Order Info: [id number] - CBCOrder Info: [id number] - SED Performed By: #### L 101.9900, L500.4050, L503.6150, L501.9520, L503.6550, L100.0500 ####[facility] [address] [place], [place], [phone](271) RDW SD 44.3 fl High 35.1-43.9 [facility] Comment on above: Order Comment: Order Date: 06/24/24Order Info: [id number] - CBCOrder Info: [id number] - SED Performed By: #### L 101.9900, L500.4050, L503.6150, L501.9520, L503.6550, L100.0500 ####[facility] [address] [place], [place], [phone] WBC (Bld) [#/Vol] 8.2 10*3/uL Normal 4.4-11.0 [facility] Comment on above: Order Comment: Order Date: 06/24/24Order Info: [id number] - CBCOrder Info: [id number] - SED Performed By: #### L 101.9900, L500.4050, L503.6150, L501.9520, L503.6550, L100.0500 ####[facility] [address] [place], [place], [phone] Carbon dioxide, total [Moles /volume] in Central venous bloodOrdered By: Néstor Saucedo on 06-28-2024 CO2 [Moles/Vol] 25.0 mmol/L 21.0-32.0 [facility] Chloride assayOrdered By: Steffany Saucedo on 06-28-2024 Chloride [Moles/Vol] 104 mmol/L 98-108 [facility] Comprehensive Metabolic Prof ilon 06-28-2024 Albumin [Mass/Vol] 4.6 g/dL Normal 3.4-4.8 [facility] Comment on above: Order Comment: Order Date: 06/24/24Order Info: 86-1 - CMPOrder Info: 3015-04 - TSHOrder Info: 2497-05 - FEOrder Info: 2275-05 - COLBY Performed By: #### L 101.9900, L500.4050, L503.6150, L501.9520, L503.6550, L100.0500 ####[facility] [address] [place], [address] Albumin/Globulin [Mass ratio] 1.8 {ratio} Normal 0.9-2.4 [facility] Comment on above: Order Comment: Order Date: 06/24/24Order Info: 785-1 - CMPOrder Info: 3015-04 - TSHOrder Info: 2497-05 - FEOrder Info: 2275-05 - COLBY Performed By: #### L 101.9900, L500.4050, L503.6150, L501.9520, L503.6550, L100.0500 ####[facility] [address] [place], [address] ALK PHOS 48 U/L Normal 35-104 [facility] Comment on above: Order Comment: Order Date: 06/24/24Order Info: 07- - CMPOrder Info: 3015-04 - TSHOrder Info: 2497-05 - FEOrder Info: 2275-05 - COLBY Performed By: #### L 101.9900, L500.4050, L503.6150, L501.9520, L503.6550, L100.0500 ####[facility] [address] [place], [address] ALT [Catalytic activity/Vol] 16 U/L Normal <=34 [facility] Comment on above: Order Comment: Order Date: 06/24/24Order Info: 07-1 - CMPOrder Info: 3015-04 - TSHOrder Info: 2497-05 - FEOrder Info: 2275-05 - COLBY Performed By: #### L 101.9900, L500.4050, L503.6150, L501.9520, L503.6550, L100.0500 ####[facility] [address] [place], [address] AST [Catalytic activity/Vol] 20 U/L Normal <=31 [facility] Comment on above: Order Comment: Order Date: 06/24/24Order Info: 0786-1 - CMPOrder Info: 3 - TSHOrder Info: 2497-05 - FEOrder Info: 2275-05 - COLBY Performed By: #### L 101.9900, L500.4050, L503.6150, L501.9520, L503.6550, L100.0500 ####[facility] [address] [place], [address] Bilirubin [Mass/Vol] 0.40 mg/dL Normal 0.00-1.30 [facility] Comment on above: Order Comment: Order Date: 06/24/24Order Info: 86-1 - CMPOrder Info: 3015-04 - TSHOrder Info: 2497-05 - FEOrder Info: 2275-05 - COLBY Performed By: #### L 101.9900, L500.4050, L503.6150, L501.9520, L503.6550, L100.0500 ####[facility] [address] [place], [address] BUN/CRE 25.3 RATIO High 10-20 [facility] Comment on above: Order Comment: Order Date: 06/24/24Order Info: 86-1 - CMPOrder Info: 3015-04 - TSHOrder Info: 2497-05 - FEOrder Info: 2275-05 - COLBY Performed By: #### L 101.9900, L500.4050, L503.6150, L501.9520, L503.6550, L100.0500 ####[facility] [address] [place], [address] Calcium [Mass/Vol] 10.0 mg/dL Normal 7.6-11.0 [facility] Comment on above: Order Comment: Order Date: 06/24/24Order Info: 86-1 - CMPOrder Info: 3015-04 - TSHOrder Info: 2497-05 - FEOrder Info: 2275-05 - COLBY Performed By: #### L 101.9900, L500.4050, L503.6150, L501.9520, L503.6550, L100.0500 ####[facility] [address] [place], [address] Chloride [Moles/Vol] 104 mmol/L Normal 98-108 [facility] Comment on above: Order Comment: Order Date: 06/24/24Order Info: 1 - CMPOrder Info: 3015-04 - TSHOrder Info: 2497-05 - FEOrder Info: 2275-05 - COLBY Performed By: #### L 101.9900, L500.4050, L503.6150, L501.9520, L503.6550, L100.0500 ####[facility] [address] [place], [address] CO2 [Moles/Vol] 25.0 mmol/L Normal 21.0-32.0 [facility] Comment on above: Order Comment: Order Date: 06/24/24Order Info: 1 - CMPOrder Info: 3015-04 - TSHOrder Info: 2497-05 - FEOrder Info: 2275-05 - COLBY Performed By: #### L 101.9900, L500.4050, L503.6150, L501.9520, L503.6550, L100.0500 ####[facility] [address] [place], [address] Creatinine [Mass/Vol] 0.81 mg/dL Normal 0.70-1.20 [facility] Comment on above: Order Comment: Order Date: 06/24/24Order Info: 785-1 - CMPOrder Info: 3016-3 - TSHOrder Info: 2497-05 - FEOrder Info: 2275-4 - COLBY Performed By: #### L 101.9900, L500.4050, L503.6150, L501.9520, L503.6550, L100.0500 ####[facility] [address] [place], [address] GAP 12 Normal 5-15 [facility] Comment on above: Order Comment: Order Date: 06/24/24Order Info: 86-1 - CMPOrder Info: 3 - TSHOrder Info: 24909-20 - FEOrder Info: 2275-05 - COLBY Performed By: #### L 101.9900, L500.4050, L503.6150, L501.9520, L503.6550, L100.0500 ####[facility] [address] [place], [place], [phone] GFR/1.73 sq M.predicted among non-blacks MDRD (S/P/Bld) [Vol rate/Area] 78 mL/min/{1.73_m2} Normal >60 [facility] Comment on above: Order Comment: Order Date: 06/24/24Order Info: 785- - CMPOrder Info: 3015-04 - TSHOrder Info: 2497-05 - FEOrder Info: 2275-4 - COLBY Result Comment: mL/m in/1.73m2 CKD-EPI Creatinine Equation (2020) Performed By: #### L 101.9900, L500.4050, L503.6150, L501.9520, L503.6550, L100.0500 ####[facility] [address] [place], [place], [address] Globulin (S) [Mass/Vol] 2.6 g/dL Normal 2.2-4.2 [facility] Comment on above: Order Comment: Order Date: 06/24/24Order Info: 07-1 - CMPOrder Info: 3015-04 - TSHOrder Info: 2497-05 - FEOrder Info: 2275-05 - COLBY Performed By: #### L 101.9900, L500.4050, L503.6150, L501.9520, L503.6550, L100.0500 ####[facility] [address] [place], [address] Glucose [Mass/Vol] 88 mg/dL Normal 70-99 [facility] Comment on above: Order Comment: Order Date: 06/24/24Order Info: 86-1 - CMPOrder Info: 3015-04 - TSHOrder Info: 2497-05 - FEOrder Info: 2275-05 - COLBY Performed By: #### L 101.9900, L500.4050, L503.6150, L501.9520, L503.6550, L100.0500 ####[facility] [address] [place], [address] Potassium [Moles/Vol] 3.7 mmol/L Normal 3.3-5.1 [facility] Comment on above: Order Comment: Order Date: 06/24/24Order Info: 785-1 - CMPOrder Info: 3015-04 - TSHOrder Info: 2497-05 - FEOrder Info: 2275-05 - COLBY Performed By: #### L 101.9900, L500.4050, L503.6150, L501.9520, L503.6550, L100.0500 ####[facility] [address] [place], [address] Sodium [Moles/Vol] 141 mmol/L Normal 133-145 [facility] Comment on above: Order Comment: Order Date: 06/24/24Order Info: 785-1 - CMPOrder Info: 3015-04 - TSHOrder Info: 2497-05 - FEOrder Info: 2275-05 - COLBY Performed By: #### L 101.9900, L500.4050, L503.6150, L501.9520, L503.6550, L100.0500 ####[facility] [address] [place], [address] T PROT 7.2 g/dL Normal 5.9-8.4 [facility] Comment on above: Order Comment: Order Date: 06/24/24Order Info: 0786-1 - CMPOrder Info: 301-3 - TSHOrder Info: 24909-20 - FEOrder Info: 2275-4 - COLBY Performed By: #### L 101.9900, L500.4050, L503.6150, L501.9520, L503.6550, L100.0500 ####[facility] [address] [place], [place], [id number] Urea nitrogen [Mass/Vol] 20 mg/dL High 4-19 [facility] Comment on above: Order Comment: Order Date: 06/24/24Order Info: 0786-1 - CMPOrder Info: [id number] - TSHOrder Info: 2497-05 - FEOrder Info: 2275-05 - COLBY Performed By: #### L 101.9900, L500.4050, L503.6150, L501.9520, L503.6550, L100.0500 ####[facility] [address] [place], [place], [id number] Erythrocyte Sed Rateon 06-28 SED RATE 6 mm/hr Normal 0-30 [facility] Comment on above: Order Comment: Order Date: 06/24/24Order Info: [id number] - CBCOrder Info: 44046-8 - SED Performed By: #### L 101.9900, L500.4050, L503.6150, L501.9520, L503.6550, L100.0500 ####[facility] [address] [place], [place], [address] Erythrocyte distribution wid th ratioOrdered By: Néstor Saucedo on 06-28-2024 Erythrocyte distribution width (RBC) [Ratio] 13.6 % 11.6-14.6 [facility] Erythrocyte distribution wid th standard deviationOrdered By: Néstor Saucedo on 06-28-2024 Erythrocyte distribution width (RBC) [Ratio] 44.3 fl High 35.1-43.9 [facility] Erythrocyte sedimentation ra teOrdered By: Néstor Saucedo on 06-28-2024 ESR (Bld) [Velocity] 6 mm/h 0-30 [facility] Ferritinon 06-28-2024 Ferritin [Mass/Vol] 53 ng/mL Normal 22-378 [facility] Comment on above: Order Comment: Order Date: 06/24/24Order Info: 0786-1 - CMPOrder Info: 3 - TSHOrder Info: 2497-05 - FEOrder Info: 2275-05 - COLBY Performed By: #### L 101.9900, L500.4050, L503.6150, L501.9520, L503.6550, L100.0500 ####[facility] [address] [place], [address] Glomerular filtration rate ( GFR) estimation/1.73 sq m using serum, plasma, or whole bOrdered By: Néstor Saucedo on 06-28-2024 GFR/1.73 sq M.predicted among non-blacks MDRD (S/P/Bld) [Vol rate/Area] 78 mL/min/{1.73_m2} >60 [facility] Comment on above: mL/min/1.73m2 CKD-EP I Creatinine Equation (2020) Hematocrit Auto (Bld) [Volum e fraction]Ordered By: Néstor Saucedo on 06-28-2024 Hematocrit (Bld) [Volume fraction] 36.5 % Low 37-47 [facility] Hemoglobin measurementOrdere d By: Néstor Saucedo on 06-28-2024 Hemoglobin (Bld) [Mass/Vol] 11.9 g/dL Low 12.0-15.0 [facility] Ironon 06-28-2024 Iron [Mass/Vol] 80 ug/dL Normal 50-170 [facility] Comment on above: Order Comment: Order Date: 06/24/24Order Info: 0786-1 - CMPOrder Info: 3015-3 - TSHOrder Info: 2497-05 - FEOrder Info: 2275-05 - COLBY Performed By: #### L 101.9900, L500.4050, L503.6150, L501.9520, L503.6550, L100.0500 ####[facility] [address] [place], [address] Iron measurement (mass/mass) Ordered By: Néstor Saucedo on 06-28-2024 Iron (Unsp spec) [Mass/Mass] 80 ug/dL 50-170 [facility] Laboratory - Chemistry and C hemistry - challengeOrdered By: Néstor Saucedo on 06-28-2024 AST [Catalytic activity/Vol] 20 U/L <32 [facility] MCV (mean corpuscular volume ) determinationOrdered By: Néstor Saucedo on 06-28-2024 MCV (RBC) [Entitic vol] 89.7 fL 81-99 [facility] Mean corpuscular hemoglobin (MCH) determinationOrdered By: Néstor Saucedo on 06-28-2024 MCH (RBC) [Entitic mass] 29.2 pg 27.0-32.0 [facility] Mean corpuscular hemoglobin concentration (MCHC) determinationOrdered By: Néstor Saucedo on 06-28-2024 MCHC (RBC) [Mass/Vol] 32.6 g/dL 32-36 [facility] Mean platelet volume determi nationOrdered By: Néstor Saucedo on 06-28-2024 Platelet mean volume (Bld) [Entitic vol] 10.2 fL 6.2-12.0 [facility] Platelet countOrdered By: Steffany Saucedo on 06-28-2024 Platelets (Bld) [#/Vol] 308 10*3/uL 150-450 [facility] Potassium measurement (mass/ volume)Ordered By: Néstor Saucedo on 06-28-2024 Potassium (Unsp spec) [Mass/Vol] 3.7 mmol/L 3.3-5.1 [facility] RBC Auto (Bld) [#/Vol]Ordere d By: Néstor Saucedo on 06-28-2024 RBC (Bld) [#/Vol] 4.07 10*6/uL Low 4.2-5.4 [facility] Serum creatinine measurement (mass/volume)Ordered By: Néstor Saucedo on 06-28-2024 Creatinine [Mass/Vol] 0.81 mg/dL 0.70-1.20 [facility] Serum globulin measurementOr dered By: Néstor Saucedo on 06-28-2024 Globulin (S) [Mass/Vol] 2.6 g/dL 2.2-4.2 [facility] Serum glucose measurement (m ass/volume)Ordered By: Néstor Saucedo on 06-28-2024 Glucose [Mass/Vol] 88 mg/dL 70-99 [facility] Serum or plasma alanine olmedo otransferase (ALT) measurementOrdered By: Néstor Saucedo on 06-28-2024 ALT [Catalytic activity/Vol] 16 U/L <35 [facility] Serum or plasma albumin carole urement (mass/volume)Ordered By: Néstor Saucedo on 06-28-2024 Albumin [Mass/Vol] 4.6 g/dL 3.4-4.8 [facility] Serum or plasma albumin/glob ulin mass ratioOrdered By: Néstor Saucedo on 06-28-2024 Albumin/Globulin [Mass ratio] 1.8 {ratio} 0.9-2.4 [facility] Serum or plasma alkaline carlita sphatase measurementOrdered By: Néstor Saucedo on 06-28-2024 ALP [Catalytic activity/Vol] 48 U/L 35-104 [facility] Serum or plasma calcium carole urement (mass/volume)Ordered By: Néstor Saucedo on 06-28-2024 Calcium [Mass/Vol] 10.0 mg/dL 7.6-11.0 [facility] Serum or plasma ferritin zia surement (mass/volume)Ordered By: Néstor Saucedo on 06-28-2024 Ferritin [Mass/Vol] 53 ng/mL 22-378 [facility] Serum or plasma urea nitroge n measurement (mass/volume)Ordered By: Néstor Saucedo on 06-28-2024 Urea nitrogen [Mass/Vol] 20 mg/dL High 4-19 [facility] Sodium levelOrdered By: Kaiser Saucedo on 06-28-2024 Sodium [Moles/Vol] 141 mmol/L 133-145 [facility] TSH DL <= 0.005 mIU/L QnOrde red By: Néstor Saucedo on 06-28-2024 TSH Qn 1.410 uIU/mL 0.300-4.200 [facility] Thyroid Stim Hormone (TSH)on 06-28-2024 TSH 1.410 uIU/mL Normal 0.300-4.200 [facility] Comment on above: Order Comment: Order Date: 06/24/24Order Info: 07-1 - CMPOrder Info: 3 - TSHOrder Info: 2497-05 - FEOrder Info: [id number] - COLBY Performed By: #### L 101.9900, L500.4050, L503.6150, L501.9520, L503.6550, L100.0500 ####[facility] [address] [place], [place], [id number] Total proteinOrdered By: Caterina Saucedo on 06-28-2024 Protein [Mass/Vol] 7.2 g/dL 5.9-8.4 [facility] Vitamin B12on 06-28-2024 Cobalamin (Vitamin B12) [Mass/Vol] 277 pg/mL Normal 180-914 [facility] Comment on above: Order Comment: Order Date: 06/24/24Order Info: 785- - CMPOrder Info: 3 - TSHOrder Info: 2497-05 - FEOrder Info: 2275-05 - COLBY Performed By: #### L 503.0106, L506.1001 ####[facility] [address] [place], [place], [address] Vitamin B12 ser/plasOrdered By: Néstor Saucedo on 06-28-2024 Cobalamin (Vitamin B12) [Mass/Vol] 277 pg/mL 180-914 [facility] Vitamin D,25 Hydroxyon 06-28 Vitamin D 25-OH 59.9 ng/mL Normal 30-100 [facility] Comment on above: Order Comment: Order Date: 06/24/24Order Info: 0786-1 - CMPOrder Info: 3 - TSHOrder Info: 2497-05 - FEOrder Info: 2275-05 - COLBY Result Comment: Ninfa min D Status Deficiency: <20 ng/mL (50nmol/L) Insufficiency: 20-30 ng/mL (50-75 nmol/L) Sufficiency: 30-100 ng/mL (75-250 nmol/L) Toxicity: >100 ng/mL (>250 nmol/L) Performed By: #### L 503.0106, L506.1001 ####[facility] [address] [facility]. [place], [place], [address] White blood cell (WBC) count Ordered By: Néstor Saucedo on 06-28-2024 WBC (Bld) [#/Vol] 8.2 10*3/uL 4.4-11.0 [facility] Breast imaging reportOrdered By: Nirmala Chavarria on 05-31-2024 Study report [facility] Imaging Services [address] [place], [place] [address] SCRN MAMM (CAD)W/SANJUANA BILAT MR#: [id number] Acct: [id number] Name: KYLIE KWON FEI Rep #: [id number] : 1950 F 73 From: Denny Chavarria DO PCP: Dr. Néstor Saucedo MD Status: [facility] CLI Study:SCRN MAMM (CAD)W/SANJUANA BILAT Date of Exa m: 05/31/24 Exam# [id number] Ordering Dr: Stephy Zavala MD EXAM: SCRN MAMM (CAD)W/SANJUANA BILAT DATE: 05/31/2024 CLINICAL HISTORY: F, Age 73 y/o , SCREEN FOR BREAST CANCER BREAST CANCER RISK ASSESSMENT: Has not been calculated. TECHNIQUE: Bilateral screening digital breast tomosynthesis with 2D and 3D images. Computeraided detection. COMPARISON: Prior exam(s) dated 05/15/2023 and 02/04/2022. FINDINGS: TISSUE DENSITY: The breast tissue is heterogenously dense, which may obscure small masses. Bilateral Breast Mammographic Findings: There are no suspicious masses, suspicious microcalcifications, architectural distortion or secondary sign of malignancy identified in either breast. Benign-appearing macrocalcifications and round microcalcifications are seen in both breast. Stable nodular densities are seen in both breasts. BI/SCRN MAMM (CAD)W/SANJUANA BILAT IMPRESSION: Right Breast: BIRADS 2 BENIGN FINDING. Left Breast: BIRADS 2 BENIGN FINDING. OVERALL FINAL ASSESSMENT: BIRADS 2 BENIGN FINDING RECOMMENDATION: Routine annual follow-up in 1 Year A letter with findings and recommendations will be mailed to the patient. Reading Location: [id number] CC: Dr. Néstor Saucedo MD; Dr. Stephy Banerjee MD ~ Jboss Architect: Signed [facility] SCRN MAMM (CAD)W/SANJUANA BILATo n 05-31-2024 SCRN MAMM (CAD)W/SANJUANA BILAT [facility] Imaging Services [address] [place] [address] SCRN MAMM (CAD)W/SANJUANA BILAT MR#: [id number] Acct: [id number] Name: KYLIE KWON Rep #: [id number] : 1950 F 73 From: Nirmala Bourgeois O PCP: Dr. Néstor Saucedo MD Status: REG CLI Study: SCRN MAMM (CAD)W/SANJUANA BILAT Date of Exam: 05/18 06/11 Exam# [id number] Ordering Dr: Stephy Banerjee EXAM: SCRN MAMM (CAD)W/SANJUANA BILAT DATE: 05/31/2024 CLINICAL HISTORY: F, Age 73 y/o , SCREEN FOR BREAST CANCER BREAST CANCER RISK ASSESSMENT: Has not been calculated. TECHNIQUE: Bilateral screening digital breast tomosynthesis with 2D and 3D images. Computer aided detection. COMPARISON: Prior exam(s) dated 05/15/2023 and 02/04/2022. FINDINGS: TISSUE DENSITY: The breast tissue is heterogenously dense, which may obscure small masses. Bilateral Breast Mammographic Findings: There are no suspicious masses, suspicious microcalcifications, architectural distortion or secondary sign of malignancy identified in either breast. Benign-appearing macrocalcifications and round microcalcifications are seen in both breast. Stable nodular densities are seen in both breasts. BI/SCRN MAMM (CAD)W/SANJUANA BILAT IMPRESSION: Right Breast: BIRADS 2 BENIGN FINDING. Left Breast: BIRADS 2 BENIGN FINDING. OVERALL FINAL ASSESSMENT: BIRADS 2 BENIGN FINDING RECOMMENDATION: Routine annual follow-up in 1 Year A letter with findings and recommendations will be mailed to the patient. Reading Location: [facility] CC: Dr. Néstor Saucedo MD; Dr. Stephy Banerjee MD Jboss Architect: Signed Normal [facility] Plastic Surgery Visit Report on 04-16-2024 Plastic Surgery Visit Report [facility] Plastic Reconstructive Surgery [address] [facility], [address] [place] [address] OFFICE VISIT Date of Service: 04/16/24 MR#: [id number] Acct: [id number] Name: KYLIE KWON Rep #: [id number] : 1950 Provider: Dr. Sven Sanders MD Age/Sex: 73/F Location: [facility] [place] [facility] Status: Signed Intake Vital Signs 08/13/23 11:46 04/16/24 13:28 Height 5 ft 1 in 5 ft 1 in Weight: 122 lb 8 oz 126 lb 6 oz BMI 23.1 23.8 BP 142/68 H 113/69 Blood Pressure Location Lt brachial Rt brachial Position Sitting Sitting Respiration 16 18 Pulse 81 101 H Pulse Source NIBP Temp 98.0 F 98.1 F Temp Source Temporal Oral Pulse Oximetry (%) 96 96 Oxygen Delivery Method room air room air Intake Visit Reasons: UPPER BLEPH/VENOUS ASHBY Chief Complaint: upper bleph/venous ashby Is patient in pain?: No Allergies Sulfa (Sulfonamide Antibiotics) Allergy (Verified 08/13/23 11:47) Rash Medications ???Medication ???Instructions ???Recorded ???Confirmed ???Type sertraline 100 mg tablet 25 mg PO DAILY 07/15/23 08/13/23 H istory benzonatate 200 mg capsule 200 mg PO TID PRN cough #20 caps 0 08/13/23 08/13/23 Rx methylprednisolone 4 mg tablets in See Rx Instructions PO PER PKG D IR 08/13/23 08/13/23 Rx a dose pack (Medrol (Chepe)) #21 tabs minoxidil 2.5 mg tablet mg PO 04/16/24 04/16/24 History sertraline 50 mg tablet mg PO DAILY 04/16/24 04/16/24 Hist ory Have you fallen in the past year?: No Nurse's Note: pt here for upper bleph consult and venous ashby on lip [facility] Medical History Carpal tunnel syndrome Trigger finger of both hands Post-menopausal Anxiety History of thyroid nodule History of steroid therapy Osteoporosis Ulcer Shortness of breath on exertion Non-smoker Leg cramps Irregular heart beat Migraine headache Restless legs Back pain Injury of head and neck History of abnormal cervical Pap smear Surgical History H/O LEEP History of back surgery H/O tubal ligation History of carpal tunnel surgery Family History Mother Osteoporosis Congestive heart failure Rheumatoid arthritis Hypertension A-fib Arthritis High cholesterol Father Heart disease High cholesterol Brother Heart disease Social History household members: spouse housing: house Smoking Status: Never smoker alcohol intake: never substance use type: does not use caffeine: Yes what type of physical activity do you participate in: none seatbelt use: always do you feel safe at home: Yes additional social history: [employer]- 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 HPI UPPER BLEPH/VENOUS ASHBY Details: Kylie Kwon is a delightful 83-year-old female who was referred to the practice by Hans Beckham for upper blepharoplasty consult and venous ashby on the right lower lip. Has never had any eyelid surgery before. No history of thyroid eye disease or any endocrinopathies. She does not have any dry eyes. She does not get Botox. pt denies vaping,denies smoking and denies any family history of blood clots/disorders. No history of HTN No history of laser eye surgery ROS General General: Yes good health; No fatigue, fever(s) or weight loss HENMT HENMT: No rhinitis, sore throat/mouth sore, nasal congestion, contacts or glaucoma Endo Endocrine: No thyroid disease, polydipsia, heat intolerance, cold intolerance, hepatitis or excessive urine Skin Skin: No Bleeding, bruising, changing moles or suspicious lesion Musc Musculoskeletal: No joint pain, joint stiffness, muscle weakness, back pain, osteoarthritis or Muscle aches/ myalgia Neuro Neurological: No headache(s), No lightheadedness and No numbness Cardio Cardiovascular: No chest pain, pacemaker, fatigue or shortness of breat with exertion Psych Psychiatric: No depression, claustrophobia or anxiety Resp Respiratory: No spitting up, shortness of breath, sleep apnea, asthma, emphysema, TB, Cough or Smoker Gastro Gastrointestinal: No diarrhea, constipation, blood in stool, nausea, vomiting or abdominal bloating Jacob Hematologic: No anemia, No bleeding and No abnormal bleeding Genitourinary: No urinary frequency, blood in urine or incontinence Exam Details Healthy skin Ray 2 Pupils: PERRL EOM: EOM intact bilaterally Forehead: Some static rhytids/11 lines. Some chronic frontalis use to overcome dermatochalasis/brow ptosis. I had her close her eyes, relax her f (more content not included)... Normal [facility] 02-16-2024 [facility] [place] Telephone ([place]) KYLIE KWON ([id number]) 1950 F Date Time Provider Department 02/16/24 BRANDON FELIX During your visit today, we recorded the following information about you: Alejandra Cotton LPN 02/16/2024 10:39 AM Signed US of thyroid in scanned documents. For your review. Patient does not currently have appointment. Alejandra Cotton LPN February 16, 2024 10:39 AM Brandon Felix MD 02/25/2024 10:15 AM Signed Does not look like there is any change in the thyroid ultrasound results. I do not think a repeat fine-needle aspiration will be needed. Alejandra Cotton LPN 02/26/2024 8:49 AM Signed Called and spoke to patient, updated and patient voiced understanding. Alejandra Cotton LPN February 26, 2024 8:49 AM Allergies As of Date: 02/16/2024 Noted Allergy Reaction SULFA (SULFONAMIDE ANTIBIOTICS) 12/13/2004 4 - Hives Comments: swelling Date Reviewed: 08/08/2020 Reviewed by: Silvia Holcomb Ma - Fully Assessed Reason for Visit: Results [95] Cmt: US thyroid Prescriptions as of 02/26/2024 - COLLAGEN MISC - celecoxib (CELEBREX) 200 mg capsule Take 200 mg by mouth once daily. - ospemifene (OSPHENA) 60 mg tab Take 1 tablet by mouth once daily. - sertraline (ZOLOFT) 25 mg tablet Take 50 mg by mouth once daily. - MEDICATION, NON-DATABASE Calcium 600 mg +Vit D Take one(1) tablet two(2) times daily. - MULTIVITAMIN TAB Take one(1) tablet daily. 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] 12/26/2009 Nontoxic multinodular goiter [E04.2] 05/31/2012 Osteoporosis [M81.0] 04/01/2014 Displacement of lumbar intervertebral disc with*08/25/2015 Encounter Status:Closed by ALEJANDRA COTTON on 02/26/24 Normal [facility] 37-GY-Psuyqvz DOrdered By: Lyndsey Saucedo on 02-09-2024 Vitamin D 25-Hydroxy 80.4 ng/mL [facility] Comment on above: Vitamin D 25(OH) Sta tus Range Deficiency <20 ng/mL (50nmol/L) Insufficiency 20 - 30 ng/mL (50 - 75 nmol/L) Sufficiency 30 - 100 ng/mL (75 - 250 nmol/L) Toxicity >100 ng/mL (>250 nmol/L) Albumin to globulin ratioOrd ered By: Néstor Saucedo on 02-09-2024 Albumin/Globulin [Mass ratio] 1.2 {ratio} 0.9-2.4 [facility] Bilirubin, totalOrdered By: Néstor Saucedo on 02-09-2024 Bilirubin [Mass/Vol] 0.50 mg/dL 0.20-1.00 [facility] Comment on above: For patients on eltr ombopag therapy, use of Dimension [place] TBIL is not recommended. Blood urea nitrogen (BUN)/cr eatinine ratioOrdered By: Néstor Saucedo on 02-09-2024 Urea nitrogen/Creatinine [Mass ratio] 19.8 mg/mg 12-06 [facility] CBC-Complete Blood Cnt No Di ffon 02-09-2024 Erythrocyte distribution width (RBC) [Ratio] 13.2 % Normal 11.6-14.6 [facility] Comment on above: Order Comment: Order Date: 02/04/24 Order Info: [id number] - CBC Performed By: #### L 100.0500, L506.1000, L500.4050, L500.4100, L501.9520, L506.0400 #### [facility] [address] [place], [place], [id number] ([phone] Hematocrit (Bld) [Volume fraction] 39.7 % Normal 37-47 [facility] Comment on above: Order Comment: Order Date: 02/04/24 Order Info: [id number] - CBC Performed By: #### L 100.0500, L506.1000, L500.4050, L500.4100, L501.9520, L506.0400 #### [facility] [address] [place], [address] Hemoglobin (Bld) [Mass/Vol] 12.6 g/dL Normal 12.0-15.0 [facility] Comment on above: Order Comment: Order Date: 02/04/24 Order Info: [id number] - CBC Performed By: #### L 100.0500, L506.1000, L500.4050, L500.4100, L501.9520, L506.0400 #### [facility] [address] [place], [address] MCH (RBC) [Entitic mass] 29.1 pg Normal 27.0-32.0 [facility] Comment on above: Order Comment: Order Date: 02/04/24 Order Info: [id number] - CBC Performed By: #### L 100.0500, L506.1000, L500.4050, L500.4100, L501.9520, L506.0400 #### [facility] [address] [facility] [facility] [place], [address] MCHC (RBC) [Mass/Vol] 31.7 g/dL Low 32-36 [facility] Comment on above: Order Comment: Order Date: 02/04/24 Order Info: [id number] - CBC Performed By: #### L 100.0500, L506.1000, L500.4050, L500.4100, L501.9520, L506.0400 #### [facility] [address] [facility] [place], [address] MCV (RBC) [Entitic vol] 91.7 fL Normal 81-99 [facility] Comment on above: Order Comment: Order Date: 02/04/24 Order Info: [id number] - CBC Performed By: #### L 100.0500, L506.1000, L500.4050, L500.4100, L501.9520, L506.0400 #### [facility] [address] [place], [address] Platelet mean volume (Bld) [Entitic vol] 10.5 fL Normal 6.2-12.0 [facility] Comment on above: Order Comment: Order Date: 02/04/24 Order Info: [id number] - CBC Performed By: #### L 100.0500, L506.1000, L500.4050, L500.4100, L501.9520, L506.0400 #### [facility] [address] [place], [address] Platelets (Bld) [#/Vol] 317 10*3/uL Normal 150-450 [facility] Comment on above: Order Comment: Order Date: 02/04/24 Order Info: [id number] - CBC Performed By: #### L 100.0500, L506.1000, L500.4050, L500.4100, L501.9520, L506.0400 #### [facility] [address] [place], [address] RBC (Bld) [#/Vol] 4.33 10*6/uL Normal 4.2-5.4 [facility] Comment on above: Order Comment: Order Date: 02/04/24 Order Info: [id number] - CBC Performed By: #### L 100.0500, L506.1000, L500.4050, L500.4100, L501.9520, L506.0400 #### [facility] [address] [place], [address] RDW SD 44.7 fl High 35.1-43.9 [facility] Comment on above: Order Comment: Order Date: 02/04/24 Order Info: [id number] - CBC Performed By: #### L 100.0500, L506.1000, L500.4050, L500.4100, L501.9520, L506.0400 #### [facility] [address] [place], [address] WBC (Bld) [#/Vol] 5.6 10*3/uL Normal 4.4-11.0 [facility] Comment on above: Order Comment: Order Date: 02/04/24 Order Info: [id number] - CBC Performed By: #### L 100.0500, L506.1000, L500.4050, L500.4100, L501.9520, L506.0400 #### [facility] [address] [place], [address] Carbon dioxide measurementOr dered By: Néstor Saucedo on 02-09-2024 CO2 [Moles/Vol] 28.0 mmol/L 21.0-32.0 [facility] Chloride measurementOrdered By: Néstor Saucedo on 02-09-2024 Chloride [Moles/Vol] 108 mmol/L High 98-107 [facility] Comprehensive Metabolic Prof ilon 02-09-2024 Albumin [Mass/Vol] 4.0 g/dL Normal 3.2-5.0 [facility] Comment on above: Order Comment: Order Date: 02/04/24 Order Info: 785-02 - CMP Order Info: - LIPID Order Info: 3015-04 - TSH Order Info: 3023-08 - T4F Performed By: #### L 100.0500, L506.1000, L500.4050, L500.4100, L501.9520, L506.0400 #### [facility] [address] [place], [place], [id number] Albumin/Globulin [Mass ratio] 1.2 {ratio} Normal 0.9-2.4 [facility] Comment on above: Order Comment: Order Date: 02/04/24 Order Info: 785-02 - CMP Order Info: - LIPID Order Info: 3015-04 - TSH Order Info: 3023-08 - T4F Performed By: #### L 100.0500, L506.1000, L500.4050, L500.4100, L501.9520, L506.0400 #### [facility] [address] [place], [place], [address] ALK P 40 U/L Low 45-117 [facility] Comment on above: Order Comment: Order Date: 02/04/24 Order Info: 785-02 - CMP Order Info: - LIPID Order Info: 3 - TSH Order Info: 7 - T4F Performed By: #### L 100.0500, L506.1000, L500.4050, L500.4100, L501.9520, L506.0400 #### [facility] [address] [place], [address] ALT [Catalytic activity/Vol] 22 U/L Normal 13-56 [facility] Comment on above: Order Comment: Order Date: 02/04/24 Order Info: 0786-1 - CMP Order Info: 23041-7 - LIPID Order Info: 3016-3 - TSH Order Info: 3024-7 - T4F Performed By: #### L 100.0500, L506.1000, L500.4050, L500.4100, L501.9520, L506.0400 #### [facility] [address] [place], [address] AST [Catalytic activity/Vol] 17 U/L Normal 15-37 [facility] Comment on above: Order Comment: Order Date: 02/04/24 Order Info: 785-1 - CMP Order Info: [id number] - LIPID Order Info: 3 - TSH Order Info: 3024-7 - T4F Performed By: #### L 100.0500, L506.1000, L500.4050, L500.4100, L501.9520, L506.0400 #### [facility] [address] [place], [address] Bilirubin [Mass/Vol] 0.50 mg/dL Normal 0.20-1.00 [facility] Comment on above: Order Comment: Order Date: 02/04/24 Order Info: 785-1 - CMP Order Info: [id number] - LIPID Order Info: 3016-3 - TSH Order Info: 3024-7 - T4F Result Comment: For patients on eltrombopag therapy, use of Dimension [place] TBIL is not recommended. Performed By: #### L 100.0500, L506.1000, L500.4050, L500.4100, L501.9520, L506.0400 #### [facility] [address] [place], [address] BUN/CRE 19.8 RATIO Normal 10-20 [facility] Comment on above: Order Comment: Order Date: 02/04/24 Order Info: 86-1 - CMP Order Info: 34716-0 - LIPID Order Info: 301-3 - TSH Order Info: 3024-7 - T4F Performed By: #### L 100.0500, L506.1000, L500.4050, L500.4100, L501.9520, L506.0400 #### [facility] [address] [place], [address] CA,Total 9.0 mg/dL Normal 8.5-10.1 [facility] Comment on above: Order Comment: Order Date: 02/04/24 Order Info: 785-1 - CMP Order Info: - LIPID Order Info: 3 - TSH Order Info: 3024-7 - T4F Performed By: #### L 100.0500, L506.1000, L500.4050, L500.4100, L501.9520, L506.0400 #### [facility] [address] [place], [address] Chloride [Moles/Vol] 108 mmol/L High 98-107 [facility] Comment on above: Order Comment: Order Date: 02/04/24 Order Info: 785- - CMP Order Info: [id number] - LIPID Order Info: 3015-3 - TSH Order Info: 3024-7 - T4F Performed By: #### L 100.0500, L506.1000, L500.4050, L500.4100, L501.9520, L506.0400 #### [facility] [address] [place], [address] CO2 [Moles/Vol] 28.0 mmol/L Normal 21.0-32.0 [facility] Comment on above: Order Comment: Order Date: 02/04/24 Order Info: 86-1 - CMP Order Info: [id number] - LIPID Order Info: [id number] - TSH Order Info: 3024-7 - T4F Performed By: #### L 100.0500, L506.1000, L500.4050, L500.4100, L501.9520, L506.0400 #### [facility] [address] [place], [place], [address] Creatinine [Mass/Vol] 0.76 mg/dL Normal 0.55-1.02 [facility] Comment on above: Order Comment: Order Date: 02/04/24 Order Info: 785- - CMP Order Info: - LIPID Order Info: 3 - TSH Order Info: 7 - T4F Result Comment: The validity of the calculated GFR GFRAA in patients over 70 years has not been determined. Clinical correlation is essential. Performed By: #### L 100.0500, L506.1000, L500.4050, L500.4100, L501.9520, L506.0400 #### [facility] [address] [place], [place], [id number] EST GFR - AA 97 mL/min Normal >60 [facility] Comment on above: Order Comment: Order Date: 02/04/24 Order Info: 785-02 - CMP Order Info: - LIPID Order Info: 3015-04 - TSH Order Info: 7 - T4F Result Comment: Afri can [place] GFR Calc Performed By: #### L 100.0500, L506.1000, L500.4050, L500.4100, L501.9520, L506.0400 #### [facility] [address] [place], [address] GAP 4 Low 5-15 [facility] Comment on above: Order Comment: Order Date: 02/04/24 Order Info: 785-02 - CMP Order Info: - LIPID Order Info: 3015-04 - TSH Order Info: 7 - T4F Performed By: #### L 100.0500, L506.1000, L500.4050, L500.4100, L501.9520, L506.0400 #### [facility] [address] [place], [address] GFR/1.73 sq M.predicted among non-blacks MDRD (S/P/Bld) [Vol rate/Area] 80 mL/min/{1.73_m2} Normal >60 [facility] Comment on above: Order Comment: Order Date: 02/04/24 Order Info: 0786-1 - CMP Order Info: 08448-1 - LIPID Order Info: 301-3 - TSH Order Info: 3024-7 - T4F Result Comment: Non- GFR Calc Performed By: #### L 100.0500, L506.1000, L500.4050, L500.4100, L501.9520, L506.0400 #### [facility] [address] [place], [address] Globulin (S) [Mass/Vol] 3.2 g/dL Normal 2.2-4.2 [facility] Comment on above: Order Comment: Order Date: 02/04/24 Order Info: 785-02 - CMP Order Info: - LIPID Order Info: 3 - TSH Order Info: 3024-7 - T4F Performed By: #### L 100.0500, L506.1000, L500.4050, L500.4100, L501.9520, L506.0400 #### [facility] [address] [place], [address] Glucose [Mass/Vol] 99 mg/dL Normal 74-106 [facility] Comment on above: Order Comment: Order Date: 02/04/24 Order Info: 785-1 - CMP Order Info: [id number] - LIPID Order Info: 3016-3 - TSH Order Info: 3024-7 - T4F Performed By: #### L 100.0500, L506.1000, L500.4050, L500.4100, L501.9520, L506.0400 #### [facility] [address] [place], [address] Potassium [Moles/Vol] 4.0 mmol/L Normal 3.5-5.1 [facility] Comment on above: Order Comment: Order Date: 02/04/24 Order Info: 785-1 - CMP Order Info: - LIPID Order Info: 3 - TSH Order Info: 3024-7 - T4F Performed By: #### L 100.0500, L506.1000, L500.4050, L500.4100, L501.9520, L506.0400 #### [facility] [address] [place], [address] Sodium [Moles/Vol] 140 mmol/L Normal 136-145 [facility] Comment on above: Order Comment: Order Date: 02/04/24 Order Info: 785- - CMP Order Info: - LIPID Order Info: 3 - TSH Order Info: 4-7 - T4F Performed By: #### L 100.0500, L506.1000, L500.4050, L500.4100, L501.9520, L506.0400 #### [facility] [address] [place], [address] T PROT 7.2 g/dL Normal 6.4-8.2 [facility] Comment on above: Order Comment: Order Date: 02/04/24 Order Info: 785- - CMP Order Info: - LIPID Order Info: 3 - TSH Order Info: 3024-7 - T4F Performed By: #### L 100.0500, L506.1000, L500.4050, L500.4100, L501.9520, L506.0400 #### [facility] [address] [place], [address] Urea nitrogen [Mass/Vol] 15 mg/dL Normal 7-18 [facility] Comment on above: Order Comment: Order Date: 02/04/24 Order Info: 785- - CMP Order Info: - LIPID Order Info: 3 - TSH Order Info: [id number] - T4F Performed By: #### L 100.0500, L506.1000, L500.4050, L500.4100, L501.9520, L506.0400 #### [facility] [place], [address] Direct serum free thyroxine (FT4) measurementOrdered By: Néstor Saucedo on 02-09-2024 Free T4 [Mass/Vol] 0.83 ng/dL 0.76-1.46 [facility] Erythrocyte distribution wid th (RBC) [Ratio]Ordered By: [facility] Saucedo on 02-09-2024 Erythrocyte distribution width (RBC) [Entitic vol] 44.7 fL High 35.1-43.9 [facility] Erythrocyte distribution wid th ratioOrdered By: [facility] center[facility]onald Saucedo on 02-09-2024 Erythrocyte distribution width (RBC) [Ratio] 13.2 % 11.6-14.6 [facility] Estimated glomerular filtrat ion rate (GFR) AmericanOrdered By: Néstor Saucedo on 02-09-2024 Estimated GFR (MDRD) Amer 97 mL/min >60 [facility] Comment on above: GFR Calc Glomerular filtration rate ( GFR) estimationOrdered By: Néstor Saucedo on 02-09-2024 Estimated GFR (MDRD) Non-Af Amer 80 mL/min >60 [facility] Comment on above: Non- GFR Calc Glucose measurementOrdered B y: Néstor Saucedo on 02-09-2024 Glucose [Mass/Vol] 99 mg/dL 74-106 [facility] Hematocrit Auto (Bld) [Volum e fraction]Ordered By: Néstor Saucedo on 02-09-2024 Hematocrit (Bld) [Volume fraction] 39.7 % 37-47 [facility] Hemoglobin measurementOrdere d By: Néstor Saucedo on 02-09-2024 Hemoglobin (Bld) [Mass/Vol] 12.6 g/dL 12.0-15.0 [facility] High density lipoprotein (HD L) measurementOrdered By: Néstor Saucedo on 02-09-2024 Cholesterol in HDL [Mass/Vol] 72 mg/dL >40 [facility] Comment on above: The drugs N-Acetylcy steine and Metamizole may falsely depress this assay. Reference Range HDL <40 mg/dL Low HDL Cholesterol HDL >or= 60 mg/dL High HDL Cholesterol Laboratory - Chemistry and C hemistry - challengeOrdered By: Néstor Saucedo on 02-09-2024 AST [Catalytic activity/Vol] 17 U/L 15-37 [facility] Lipid Profileon 02-09-2024 Cholesterol [Mass/Vol] 245 mg/dL High 200 [facility] Comment on above: Order Comment: Order Date: 02/04/24Order Info: 07- - CMPOrder Info: [id number] - LIPIDOrder Info: 3 - TSHOrder Info: [id number] - T4F Result Comment: <200 mg/dL Desirable 200-240 mg/dL Borderline >240 mg/dL High Risk Performed By: #### L 100.0500, L506.1000, L500.4050, L500.4100, L501.9520, L506.0400 ####[facility] [address] [place], [address] Cholesterol in HDL [Mass/Vol] 72 mg/dL Normal [facility] Comment on above: Order Comment: Order Date: 02/04/24Order Info: [id number] - CMPOrder Info: [id number] - LIPIDOrder Info: 6-3 - TSHOrder Info: 7 - T4F Result Comment: The drugs N-Acetylcysteine and Metamizole may falsely depress this assay. Reference Range HDL <40 mg/dL Low HDL Cholesterol HDL >or= 60 mg/dL High HDL Cholesterol Performed By: #### L 100.0500, L506.1000, L500.4050, L500.4100, L501.9520, L506.0400 ####[facility] [address] [place], [address] Cholesterol in LDL [Mass/Vol] 158 mg/dL High 0-130 [facility] Comment on above: Order Comment: Order Date: 02/04/24Order Info: 07- - CMPOrder Info: [id number] - LIPIDOrder Info: [id number] - TSHOrder Info: [id number] - T4F Performed By: #### L 100.0500, L506.1000, L500.4050, L500.4100, L501.9520, L506.0400 ####[facility] [address] [place], [place], [id number] Cholesterol in VLDL [Mass/Vol] 15 mg/dL Normal 5-40 [facility] Comment on above: Order Comment: Order Date: 02/04/24Order Info: [id number] - CMPOrder Info: [id number] - LIPIDOrder Info: [id number] - TSHOrder Info: [id number] - T4F Performed By: #### L 100.0500, L506.1000, L500.4050, L500.4100, L501.9520, L506.0400 ####[facility] [address] [place], [place], [id number]) Triglyceride [Mass/Vol] 75 mg/dL Normal [facility] Comment on above: Order Comment: Order Date: 02/04/24Order Info: [id number] - CMPOrder Info: [id number] - LIPIDOrder Info: [id number] - TSHOrder Info: [id number] - T4F Result Comment: The drugs N-Acetylcysteine and Metamizole may falsely depress this assay. Serum Triglycerides Reference Interval Normal <150 mg/dL Borderline high 150 - 199 mg/dL High 200 - 499 mg/dL Very High > or = 500 mg/dL Performed By: #### L 100.0500, L506.1000, L500.4050, L500.4100, L501.9520, L506.0400 ####[facility] [address] [place], [place], [id number] Low density lipoprotein (LDL ) cholesterol measurementOrdered By: Néstor Saucedo on 02-09-2024 Cholesterol in LDL [Mass/Vol] 158 mg/dL High 0-130 [facility] MCV (mean corpuscular volume ) determinationOrdered By: Néstor Saucedo on 02-09-2024 MCV (RBC) [Entitic vol] 91.7 fL 81-99 [facility] Mean corpuscular hemoglobin (MCH) determinationOrdered By: Néstor Saucedo on 02-09-2024 MCH (RBC) [Entitic mass] 29.1 pg 27.0-32.0 [facility] Mean corpuscular hemoglobin concentration (MCHC) determinationOrdered By: Néstor Saucedo on 02-09-2024 MCHC (RBC) [Mass/Vol] 31.7 g/dL Low 32-36 [facility] Mean platelet volume determi nationOrdered By: Néstor Saucedo on 02-09-2024 Platelet mean volume (Bld) [Entitic vol] 10.5 fL 6.2-12.0 [facility] Platelet countOrdered By: Steffany Saucedo on 02-09-2024 Platelets (Bld) [#/Vol] 317 10*3/uL 150-450 [facility] Potassium measurementOrdered By: Néstor Saucedo on 02-09-2024 Potassium [Moles/Vol] 4.0 mmol/L 3.5-5.1 [facility] RBC Auto (Bld) [#/Vol]Ordere d By: Néstor Saucedo on 02-09-2024 RBC (Bld) [#/Vol] 4.33 10*6/uL 4.2-5.4 [facility] Serum anion gap measurementO rdered By: Néstor Saucedo on 02-09-2024 Anion gap [Moles/Vol] 4 mmol/L Low 5-15 [facility] Serum globulin measurementOr dered By: Néstor Saucedo on 02-09-2024 Globulin (S) [Mass/Vol] 3.2 g/dL 2.2-4.2 [facility] Serum or plasma alanine olmedo otransferase (ALT) measurementOrdered By: Néstor Saucedo on 02-09-2024 ALT [Catalytic activity/Vol] 22 U/L 13-56 [facility] Serum or plasma albumin carole urement (mass/volume)Ordered By: Néstor Saucedo on 02-09-2024 Albumin [Mass/Vol] 4.0 g/dL 3.2-5.0 [facility] Serum or plasma alkaline carlita sphatase measurementOrdered By: Néstor Saucedo on 02-09-2024 ALP [Catalytic activity/Vol] 40 U/L Low 45-117 [facility] Serum or plasma calcium carole urement (mass/volume)Ordered By: Néstor Saucedo on 02-09-2024 Calcium [Mass/Vol] 9.0 mg/dL 8.5-10.1 [facility] Serum or plasma cholesterol measurement (mass/volume)Ordered By: Néstor Saucedo on 02-09-2024 Cholesterol [Mass/Vol] 245 mg/dL High <200 [facility] Comment on above: <200 mg/dL Desirable 200-240 mg/dL Borderline >240 mg/dL High Risk Serum or plasma creatinine m easurement (mass/volume)Ordered By: Néstor Saucedo on 02-09-2024 Creatinine [Mass/Vol] 0.76 mg/dL 0.55-1.02 [facility] Comment on above: The validity of the calculated GFR & GFRAA in patients over 70 years has not been determined. Clinical correlation is essential. Serum or plasma urea nitroge n measurement (mass/volume)Ordered By: Néstor Saucedo on 02-09-2024 Urea nitrogen [Mass/Vol] 15 mg/dL 7-18 [facility] Sodium levelOrdered By: Kaiser Saucedo on 02-09-2024 Sodium [Moles/Vol] 140 mmol/L 136-145 [facility] T4 Free Directon 02-09-2024 T4 FREE DIRECT 0.83 ng/dL Normal 0.76-1.46 [facility] Comment on above: Order Comment: Order Date: 02/04/24Order Info: [id number] - CMPOrder Info: [id number] - LIPIDOrder Info: [id number] - TSHOrder Info: [id number] - T4F Performed By: #### L 100.0500, L506.1000, L500.4050, L500.4100, L501.9520, L506.0400 ####[facility] [address] [place], [address] TSH QnOrdered By: Rj Saucedo on 02-09-2024 Thyroid Stimulating Hormone (TSH) 1.070 uIU/mL 0.358-3.740 [facility] Thyroidon 02-09-2024 Thyroid [facility] [place] [address] Thyroid MR#: [id number] Acct: [id number] Name: KYLIE KWON Rep #: [id number] : 1950 F 73 From: Missael Mancilla MD PCP: Dr. Néstor Saucedo MD Status: REG CLI Study: Thyroid Date of Exam: 02/09/24 Exam# [id number] Ordering Dr: Néstor Saucedo [id number] STUDY: THYROID ULTRASOUND REASON FOR EXAM: Female, 73 years old. 1 year fu nodule TECHNIQUE: Ultrasound evaluation of the thyroid was performed with real-time and static banda-scale imaging. COMPARISON: 11/04/2022 FINDINGS: RIGHT LOBE: The right lobe of the thyroid gland measures 4.5 x 2.4 x 2.2 cm. There is a homogeneous echotexture. Nodule 1: No change in the 35 x 20 x 21 mm mixed cystic and solid isoechoic wire than tall ill-defined margined nodule with no echogenic foci (TR 2) in the mid right lobe consistent with an adenoma. LEFT LOBE: The left lobe of the thyroid gland measures 3.9 x 1.5 x 1.1 cm. There is a homogeneous echotexture. There are no demonstrated solid, cystic or complex lesions. ISTHMUS: The isthmus measures 1 mm thick. . The regional lymph nodes are normal. US/Thyroid IMPRESSION: No change large adenoma in the right lobe. Electronically Signed: Missael Mancilla MD at 12:33 EST , CC: Dr. Néstor Saucedo MD [employer] Architect: Signed Normal [facility] Thyroid Stim Hormone (TSH)on 02-09-2024 TSH 1.070 uIU/mL Normal 0.358-3.740 [facility] Comment on above: Order Comment: Order Date: 02/04/24Order Info: [id number] - CMPOrder Info: [id number] - LIPIDOrder Info: [id number] - TSHOrder Info: [id number] - T4F Performed By: #### L 100.0500, L506.1000, L500.4050, L500.4100, L501.9520, L506.0400 ####[facility] [address] [place], [address] Total proteinOrdered By: Caterina Sauceod on 02-09-2024 Protein [Mass/Vol] 7.2 g/dL 6.4-8.2 [facility] Triglycerides measurementOrd ered By: Néstor Saucedo on 02-09-2024 Triglyceride [Mass/Vol] 75 mg/dL <199 [facility] Comment on above: The drugs N-Acetylcy steine and Metamizole may falsely depress this assay.Serum Triglycerides Reference Interval Normal <150 mg/dL Borderline high 150 - 199 mg/dL High 200 - 499 mg/dL Very High > or = 500 mg/dL Very low density lipoprotein (VLDL) cholesterol measurementOrdered By: Néstor Saucedo on 02-09-2024 VLDL Cholesterol 15 mg/dL 5-40 [facility] Vitamin D,25 Hydroxyon 02-08 Vitamin D 25-OH 80.4 ng/mL Normal [facility] Comment on above: Order Comment: Order Date: 02/04/24 Order Info: [id number] - [id number] Result Comment: Ninfa min D 25(OH) Status Range Deficiency <20 ng/mL (50nmol/L) Insufficiency 20 - 30 ng/mL (50 - 75 nmol/L) Sufficiency 30 - 100 ng/mL (75 - 250 nmol/L) Toxicity >100 ng/mL (>250 nmol/L) Performed By: #### L 100.0500, L506.1000, L500.4050, L500.4100, L501.9520, L506.0400 #### [facility] [place], [address] White blood cell (WBC) count Ordered By: Néstor Saucedo on 02-09-2024 WBC (Bld) [#/Vol] 5.6 10*3/uL 4.4-11.0 [facility] Basophil percentageOrdered B y: Rj Saucedo on 10-25-2022 Basophil percentage 3.6 mg/dL 2.5-4.9 [facility] Chloride [Moles/Vol] 106 mmol/L 98-107 [facility] Cholesterol [Mass/Vol] 238 mg/dL <200 [facility] Comment on above: <200 mg/dL Desirable 200-240 mg/dL Borderline >240 mg/dL High Risk Glucose [Mass/Vol] 98 mg/dL 74-106 [facility] Potassium [Moles/Vol] 4.0 mmol/L 3.5-5.1 [facility] Sodium [Moles/Vol] 139 mmol/L 136-145 [facility] Triglyceride [Mass/Vol] 151 mg/dL <199 [facility] Comment on above: The drugs N-Acetylcy steine and Metamizole may falsely depress this assay.Serum Triglycerides Reference Interval Normal <150 mg/dL Borderline high 150 - 199 mg/dL High 200 - 499 mg/dL Very High > or = 500 mg/dL WBC (Bld) [#/Vol] 5.9 10*3/uL 4.4-11.0 [facility] Blood erythrocytes count (nu mber/volume)Ordered By: Rj Saucedo on 10-25-2022 RBC (Bld) [#/Vol] 4.27 10*6/uL 4.2-5.4 [facility] Blood hemoglobin measurement (mass/volume)Ordered By: Rj Saucedo on 10-25-2022 Hemoglobin (Bld) [Mass/Vol] 12.6 g/dL 12.0-15.0 [facility] Blood platelet mean volumeOr dered By: Rj Saucedo on 10-25-2022 Platelet mean volume (Bld) [Entitic vol] 10.3 fL 6.2-12.0 [facility] Determination of erythrocyte mean corpuscular volume (MCV)Ordered By: Rj Saucedo on 10-25-2022 MCV (RBC) [Entitic vol] 91.3 fL 81-99 [facility] Hematocrit Auto (Bld) [Volum e fraction]Ordered By: Rj Saucedo on 10-25-2022 Hematocrit (Bld) [Volume fraction] 39.0 % 37-47 [facility] - Chemistry and C hemistry - challengeOrdered By: Rj Saucedo on 10-25-2022 CO2 [Moles/Vol] 28.0 mmol/L 21.0-32.0 [facility] Free T4 [Mass/Vol] 0.77 ng/dL 0.76-1.46 [facility] Magnesium [Mass/Vol] 2.4 mg/dL 1.6-2.6 [facility] Urea nitrogen/Creatinine [Mass ratio] 22.4 mg/mg 10-20 [facility] - Hematology and Cell countsOrdered By: Rj Saucedo on 10-25-2022 Erythrocyte distribution width (RBC) [Entitic vol] 45.1 fL 35.1-43.9 [facility] Erythrocyte distribution width (RBC) [Ratio] 13.4 % 11.6-14.6 [facility] MCH (RBC) [Entitic mass] 29.5 pg 27.0-32.0 [facility] MCHC Auto (RBC) [Mass/Vol]Or dered By: Rj Saucedo on 10-25-2022 MCHC (RBC) [Mass/Vol] 32.3 g/dL 32-36 [facility] No Panel InformationOrdered By: Rj Saucedo on 10-25-2022 Ionized Calcium 4.97 mg/dL 4.36-5.20 [facility] Estimated GFR (MDRD) Amer 91 mL/min >60 [facility] Comment on above: GFR Calc Estimated GFR (MDRD) Non-Af Amer 75 mL/min >60 [facility] Comment on above: Non- GFR Calc Free Triiodothyronine (T3) pg/dL 3.1 pg/mL 2.18-3.98 [facility] Parathyroid Hormone (Intact) 47.5 pg/mL 18.4-80.1 [facility] Thyroid Stimulating Hormone (TSH) 0.97 uIU/mL 0.358-3.74 [facility] Vitamin D 25-Hydroxy 67.5 ng/mL [facility] Comment on above: Vitamin D 25(OH) Sta tus Range Deficiency <20 ng/mL (50nmol/L) Insufficiency 20 - 30 ng/mL (50 - 75 nmol/L) Sufficiency 30 - 100 ng/mL (75 - 250 nmol/L) Toxicity >100 ng/mL (>250 nmol/L) Platelets bldOrdered By: Caterina Saucedo on 10-25-2022 Platelets (Bld) [#/Vol] 283 10*3/uL 150-450 [facility] Serum or plasma calcium carole urement (mass/volume)Ordered By: Rj Saucedo on 10-25-2022 Calcium [Mass/Vol] 9.2 mg/dL 8.5-10.1 [facility] Serum or plasma cholesterol in HDL measurement (mass/volume)Ordered By: Rj Saucedo on 10-25-2022 Cholesterol in HDL [Mass/Vol] 59 mg/dL >40 [facility] Comment on above: The drugs N-Acetylcy steine and Metamizole may falsely depress this assay. Reference Range HDL <40 mg/dL Low HDL Cholesterol HDL >or= 60 mg/dL High HDL Cholesterol Serum or plasma cholesterol in VLDL measurement (mass/volume)Ordered By: Rj Saucedo on 10-25-2022 Cholesterol in VLDL [Mass/Vol] 30 mg/dL 5-40 [facility] Serum or plasma creatinine m easurement (mass/volume)Ordered By: Rj Saucedo on 10-25-2022 Creatinine [Mass/Vol] 0.80 mg/dL 0.55-1.02 [facility] Comment on above: The validity of the calculated GFR & GFRAA in patients over 70 years has not been determined. Clinical correlation is essential. Serum or plasma low density lipoprotein (LDL) cholesterol measurement (mass/volume)Ordered By: Rj Saucedo on 10-25-2022 Cholesterol in LDL [Mass/Vol] 149 mg/dL 0-130 [facility] Serum or plasma urea nitroge n measurement (mass/volume)Ordered By: Rj Saucedo on 10-25-2022 Urea nitrogen [Mass/Vol] 18 mg/dL 7-18 [facility] Thin prep Papanicolaou smear with manual screeningOrdered By: Rj Saucedo on 10-25-2022 Thin prep Papanicolaou smear with manual screening 5 5-15 [facility] - Microbiology an d Antimicrobial susceptibilityon 02-02-2022 SARS-CoV-2 (COVID-19) RNA ANAT+probe Ql (Unsp spec) Not detected [facility] Work Phone: No Panel Informationon 02-02 Influenza Types A,B Rapid (Clinic) Not detected [facility] Work Phone: Laboratory - Microbiology an d Antimicrobial susceptibilityon 11-24-2021 SARS-CoV-2 (COVID-19) RNA ANAT+probe Ql (Unsp spec) Not detected [facility] Work Phone: No Panel Informationon 11-24 Influenza Types A,B Rapid (Clinic) Not detected [facility] Work Phone: Absolute lymphocyte counton 11-22-2021 Lymphocytes Auto (Unsp spec) [#/Vol] 2.22 10*3/uL 0.83-4.51 [facility] Work Phone: Basophil percentageon 2021 Basophils/100 WBC (Bld) 0.5 % 0-1 [facility] Work Phone: Chloride [Moles/Vol] 107 mmol/L 98-107 [facility] Work Phone: Eosinophils/100 WBC (Bld) 3.3 % 0-5 [facility] Work Phone: Glucose [Mass/Vol] 120 mg/dL 74-106 [facility] Work Phone: Comment on above: Fasting Glucose resu lt from 100 to 125 mg/dL suggests IMPAIRED HOMEOSTASIS per A.D.A. criteria. Neutrophils (Bld) [#/Vol] 5.3 10*3/uL 2.0-7.7 [facility] Work Phone: Neutrophils/100 WBC (Bld) 63.2 % 47-70 [facility] Work Phone: [phone] Potassium [Moles/Vol] 3.6 mmol/L 3.5-5.1 [facility] Work Phone: [phone] Sodium [Moles/Vol] 141 mmol/L 136-145 [facility] Work Phone: [phone] WBC (Bld) [#/Vol] 8.5 10*3/uL 4.4-11.0 [facility] Work Phone: Blood erythrocytes count (nu mber/volume)on 11-22-2021 RBC (Bld) [#/Vol] 4.34 10*6/uL 4.2-5.4 [facility] Work Phone: Blood hemoglobin measurement (mass/volume)on 11-22-2021 Hemoglobin (Bld) [Mass/Vol] 12.6 g/dL 12.0-15.0 [facility] Work Phone: Blood lymphocytes/100 leukoc yteson 11-22-2021 Lymphocytes/100 WBC (Bld) 26.3 % 19-41 [facility] Work Phone: Blood monocytes/100 leukocyt eson 11-22-2021 Monocytes/100 WBC (Bld) 6.5 % 0-10 [facility] Work Phone: Blood platelet mean volumeon 11-22-2021 Platelet mean volume (Bld) [Entitic vol] 9.6 fL 6.2-12.0 [facility] Work Phone: Determination of erythrocyte mean corpuscular volume (MCV)on 11-22-2021 MCV (RBC) [Entitic vol] 90.8 fL 81-99 [facility] Work Phone: Hematocrit Auto (Bld) [Volum e fraction]on 11-22-2021 Hematocrit (Bld) [Volume fraction] 39.4 % 37-47 [facility] Work Phone: Laboratory - Chemistry and C hemistry - challengeon 11-22-2021 CO2 [Moles/Vol] 27.0 mmol/L 21.0-32.0 [facility] Work Phone: Urea nitrogen/Creatinine [Mass ratio] 17.6 mg/mg 10-20 [facility] Work Phone: Laboratory - Hematology and Cell countson 11-22-2021 Erythrocyte distribution width (RBC) [Entitic vol] 44.9 fL 35.1-43.9 [facility] Work Phone: Erythrocyte distribution width (RBC) [Ratio] 13.3 % 11.6-14.6 [facility] Work Phone: Immature granulocytes/100 WBC (Bld) 0.200 % 0.0-0.9 [facility] Work Phone: Comment on above: IG% - Immature Granu locytes (promyelocytes, myelocytes and metamyelocytes) > 1% indicates that a LEFT SHIFT is Present. MCH (RBC) [Entitic mass] 29.0 pg 27.0-32.0 [facility] Work Phone: Nucleated RBC/100 WBC (Bld) [Ratio] 0 % 0-5 [facility] Work Phone: MCHC Auto (RBC) [Mass/Vol]on 11-22-2021 MCHC (RBC) [Mass/Vol] 32.0 g/dL 32-36 [facility] Work Phone: No Panel Informationon 11-22 Estimated Creatinine Clearance Calc 39.28 ml/min [facility] Work Phone: Estimated GFR (MDRD) Amer 69 mL/min >60 [facility] Work Phone: Comment on above: GFR Calc Estimated GFR (MDRD) Non-Af Amer 57 mL/min >60 [facility] Work Phone: Comment on above: Non- GFR Calc Troponin I High Sensitivity 5 pg/mL 3.0-54.0 [facility] Work Phone: Comment on above: Please Note: [place] t Units and Gender Specific Reference Ranges. For more information see Policy Stat Procedure [place] High Sensitivity Troponin (TNIH) and attachments. Platelets bldon 11-22-2021 Platelets (Bld) [#/Vol] 348 10*3/uL 150-450 [facility] Work Phone: Serum or plasma calcium carole urement (mass/volume)on 11-22-2021 Calcium [Mass/Vol] 9.7 mg/dL 8.5-10.1 [facility] Work Phone: Serum or plasma creatinine m easurement (mass/volume)on 11-22-2021 Creatinine [Mass/Vol] 1.02 mg/dL 0.55-1.02 [facility] Work Phone: Comment on above: The validity of the calculated GFR & GFRAA in patients over 70 years has not been determined. Clinical correlation is essential. Serum or plasma urea nitroge n measurement (mass/volume)on 11-22-2021 Urea nitrogen [Mass/Vol] 18 mg/dL 7-18 [facility] Work Phone: Thin prep Papanicolaou smear with manual screeningon 11-22-2021 Thin prep Papanicolaou smear with manual screening 7 5-15 [facility] Work Phone: Absolute lymphocyte counton 05-10-2021 Lymphocytes Auto (Unsp spec) [#/Vol] 1.55 10*3/uL 0.83-4.51 [facility] Work Phone: Basophil percentageon 2021 Basophils/100 WBC (Bld) 0.7 % 0-1 [facility] Work Phone: Bilirubin [Mass/Vol] 0.30 mg/dL 0.20-1.00 [facility] Work Phone: Comment on above: For patients on eltr ombopag therapy, use of Dimension [place] TBIL is not recommended. Chloride [Moles/Vol] 103 mmol/L 98-107 [facility] Work Phone: [phone] Eosinophils/100 WBC (Bld) 3.2 % 0-5 [facility] Work Phone: Glucose [Mass/Vol] 109 mg/dL 74-106 [facility] Work Phone: Comment on above: Fasting Glucose resu lt from 100 to 125 mg/dL suggests IMPAIRED HOMEOSTASIS per A.D.A. criteria. Neutrophils (Bld) [#/Vol] 3.7 10*3/uL 2.0-7.7 [facility] Work Phone: Neutrophils/100 WBC (Bld) 62.9 % 47-70 [facility] Work Phone: Potassium [Moles/Vol] 3.3 mmol/L 3.5-5.1 [facility] Work Phone: [phone] Protein [Mass/Vol] 7.4 g/dL 6.4-8.2 [facility] Work Phone: Sodium [Moles/Vol] 139 mmol/L 136-145 [facility] Work Phone: WBC (Bld) [#/Vol] 5.9 10*3/uL 4.4-11.0 [facility] Work Phone: Blood erythrocytes count (nu mber/volume)on 05-10-2021 RBC (Bld) [#/Vol] 3.94 10*6/uL 4.2-5.4 [facility] Work Phone: Blood hemoglobin measurement (mass/volume)on 05-10-2021 Hemoglobin (Bld) [Mass/Vol] 11.9 g/dL 12.0-15.0 [facility] Work Phone: Blood lymphocytes/100 leukoc yteson 05-10-2021 Lymphocytes/100 WBC (Bld) 26.5 % 19-41 [facility] Work Phone: Blood monocytes/100 leukocyt eson 05-10-2021 Monocytes/100 WBC (Bld) 6.5 % 0-10 [facility] Work Phone: Blood platelet mean volumeon 05-10-2021 Platelet mean volume (Bld) [Entitic vol] 10.2 fL 6.2-12.0 [facility] Work Phone: Determination of erythrocyte mean corpuscular volume (MCV)on 05-10-2021 MCV (RBC) [Entitic vol] 92.6 fL 81-99 [facility] Work Phone: Erythrocyte sedimentation ra briana 05-10-2021 ESR (Bld) [Velocity] 15 mm/h 0-30 [facility] Work Phone: Hematocrit Auto (Bld) [Volum e fraction]on 05-10-2021 Hematocrit (Bld) [Volume fraction] 36.5 % 37-47 [facility] Work Phone: Iron measurement (mass/mass) on 05-10-2021 Iron (Unsp spec) [Mass/Mass] 48 ug/dL 50-170 [facility] Work Phone: Laboratory - Chemistry and C hemistry - challengeon 05-10-2021 ALP [Catalytic activity/Vol] 54 U/L 45-117 [facility] Work Phone: ALT [Catalytic activity/Vol] 24 U/L 13-56 [facility] Work Phone: CO2 [Moles/Vol] 29.0 mmol/L 21.0-32.0 [facility] Work Phone: Cobalamin (Vitamin B12) [Mass/Vol] 357 pg/mL 211-911 [facility] Work Phone: Free T4 [Mass/Vol] 0.83 ng/dL 0.76-1.46 [facility] Work Phone: Globulin (S) [Mass/Vol] 3.4 g/dL 2.2-4.2 [facility] Work Phone: Magnesium [Mass/Vol] 2.6 mg/dL 1.6-2.6 [facility] Work Phone: Urea nitrogen/Creatinine [Mass ratio] 21.4 mg/mg 10-20 [facility] Work Phone: Laboratory - Hematology and Cell countson 05-10-2021 Erythrocyte distribution width (RBC) [Entitic vol] 45.9 fL 35.1-43.9 [facility] Work Phone: Erythrocyte distribution width (RBC) [Ratio] 13.6 % 11.6-14.6 [facility] Work Phone: Immature granulocytes/100 WBC (Bld) 0.200 % 0.0-0.9 [facility] Work Phone: Comment on above: IG% - Immature Granu locytes (promyelocytes, myelocytes and metamyelocytes) > 1% indicates that a LEFT SHIFT is Present. MCH (RBC) [Entitic mass] 30.2 pg 27.0-32.0 [facility] Work Phone: Nucleated RBC/100 WBC (Bld) [Ratio] 0 % 0-5 [facility] Work Phone: MCHC Auto (RBC) [Mass/Vol]on 05-10-2021 MCHC (RBC) [Mass/Vol] 32.6 g/dL 32-36 [facility] Work Phone: No Panel Informationon 05-10 Estimated GFR (MDRD) Amer 99 mL/min >60 [facility] Work Phone: Comment on above: GFR Calc Estimated GFR (MDRD) Non-Af Amer 82 mL/min >60 [facility] Work Phone: Comment on above: Non- GFR Calc Free Triiodothyronine (T3) pg/dL 3.2 pg/mL 2.18-3.98 [facility] Work Phone: Thyroid Stimulating Hormone (TSH) 0.28 uIU/mL 0.358-3.74 [facility] Work Phone: Vitamin D 25-Hydroxy 92.0 ng/mL [facility] Work Phone: Comment on above: Vitamin D 25(OH) Sta tus Range Deficiency <20 ng/mL (50nmol/L) Insufficiency 20 - 30 ng/mL (50 - 75 nmol/L) Sufficiency 30 - 100 ng/mL (75 - 250 nmol/L) Toxicity >100 ng/mL (>250 nmol/L) Platelets bldon 05-10-2021 Platelets (Bld) [#/Vol] 320 10*3/uL 150-450 [facility] Work Phone: Serum or plasma C reactive p rotein measurement (mass/volume)on 05-10-2021 CRP [Mass/Vol] mg/L 0.0-3.0 [facility] Work Phone: Comment on above: C-Reactive Protein ( CRP) provides useful information for thediagnosis, therapy and monitoring of inflammatory processesand associated diseases. For the evaluation of Relative Riskfor Cardiovascular Disease, a High Sensitivity CRP (HSCRP)should be ordered. Serum or plasma albumin carole urement (mass/volume)on 05-10-2021 Albumin [Mass/Vol] 4.0 g/dL 3.2-5.0 [facility] Work Phone: Serum or plasma albumin/glob ulin mass ratioon 05-10-2021 Albumin/Globulin [Mass ratio] 1.2 {ratio} 0.9-2.4 [facility] Work Phone: Serum or plasma calcium carole urement (mass/volume)on 05-10-2021 Calcium [Mass/Vol] 9.1 mg/dL 8.5-10.1 [facility] Work Phone: Serum or plasma creatinine m easurement (mass/volume)on 05-10-2021 Creatinine [Mass/Vol] 0.75 mg/dL 0.55-1.02 [facility] Work Phone: Comment on above: The validity of the calculated GFR & GFRAA in patients over 70 years has not been determined. Clinical correlation is essential. Serum or plasma ferritin zia surement (mass/volume)on 05-10-2021 Ferritin [Mass/Vol] 62 ng/mL 8-252 [facility] Work Phone: Serum or plasma urea nitroge n measurement (mass/volume)on 05-10-2021 Urea nitrogen [Mass/Vol] 16 mg/dL 7-18 [facility] Work Phone: Thin prep Papanicolaou smear with manual screeningon 05-10-2021 Thin prep Papanicolaou smear with manual screening 15 U/L 15-37 [facility] Work Phone: Thin prep Papanicolaou smear with manual screening 7 5-15 [facility] Work Phone: Office Visit: est annualon 0 11-08-2016 Fall risk assessment No Bloo [facility] Hemoglobin.gastrointest inal Ql (St) not done [facility] Protein mass conc Done [facility] Tobacco smoking status MDIS Never [facility] Tobacco smoking status [facility] Never smoker [facility] Office Visit: est annualon 0 10-19-2015 MG Breast screening Normal Bilateral [facility] Office Visit: est annualon 0 02-17-2013 General categories Cyto stain Interp (Cervical or vaginal smear or scraping) Normal [facility] Vital Signs Date Time Vital Sign Value Performing Clinician Faci lity 11-22-2024 10:09 Body height 154.[address] Néstor Saucedo MD Work Phone: [facility] 11-22-2024 10:09040 Body mass index (BMI) [Ratio] 23.6 kg/m2 Dr. Néstor Saucedo MD Work Phone: [facility] 11-22-2024 10:09040 Body weight 56.[address] Néstor Saucedo MD Work Phone: [facility] 11-22-2024 10:09-0400 Diastolic blood pressure 68 mm[Hg] Dr. Néstor Saucedo MD Work Phone: 4(557)674-422401 [place] [address] 11-22-2024 10:09-0400 Systolic blood pressure 127 mm[Hg] Dr. Néstor Saucedo MD Work Phone: 9(746)465-320401 [place] [address] 10-28-2024 21:16-0400 Body temperature 98.1 [degF] Dr. Néstor Saucedo MD Work Phone: 5(618)517-779051 [place] [address] 10-28-2024 21:16-0400 Diastolic blood pressure 71 mm[Hg] Dr. Néstor Saucedo MD Work Phone: 6(215)831-029151 [place] [address] 10-28-2024 21:16-0400 Heart rate 71 /min Dr. Néstor Saucedo MD Work Phone: 1(724)022-702951 [place] [address] 10-28-2024 21:16-0400 Respiratory rate 14 /min Dr. Néstor Saucedo MD Work Phone: 9(398)109-997751 [place] [address] 10-28-2024 21:16-0400 SaO2% (BldA) [Mass fraction] 98 % Dr. Néstor Saucedo MD Work Phone: 4(909)480-710201 [place] [address] 10-28-2024 21:16-0400 Systolic blood pressure 109 mm[Hg] Dr. Néstor Saucedo MD Work Phone: 8(218)703-293301 [place] [address] 10-28-2024 20:19-0400 Body height 154.[address] Néstor Saucedo MD Work Phone: 5(399)796-007051 [place] [address] 10-28-2024 20:19-0400 Body mass index (BMI) [Ratio] 24.1 kg/m2 Dr. Néstor Saucedo MD Work Phone: 9(466)805-957201 [place] [address] 10-28-2024 20:19-0400 Body weight 58.[address] Néstor Saucedo MD Work Phone: 8(546)797-751301 [place] [address] 08-20-2024 09:51-0400 Body temperature 97.8 [degF] Dr. Néstor Saucedo MD Work Phone: [facility] 08-20-2024 09:51-0400 Diastolic blood pressure 66 mm[Hg] Dr. Néstor Saucedo MD Work Phone: [facility] 08-20-2024 09:51-0400 Heart rate 66 /min Dr. Néstor Saucedo MD Work Phone: [facility] 08-20-2024 09:51-0400 Respiratory rate 16 /min Dr. Néstor Saucedo MD Work Phone: [facility] 08-20-2024 09:51-0400 SaO2% (BldA) [Mass fraction] 98 % Dr. Néstor Saucedo MD Work Phone: [facility] 08-20-2024 09:51-0400 Systolic blood pressure 122 mm[Hg] Dr. Néstor Saucedo MD Work Phone: [facility] 04-16-2024 13:28-0500 Body height 154.[address] Néstor Saucedo MD Work Phone: [facility] 04-16-2024 13:28-0500 Body mass index (BMI) [Ratio] 23.8 kg/m2 Dr. Néstor Saucedo MD Work Phone: [facility] 04-16-2024 13:28-0500 Body temperature 98.1 [degF] Dr. Néstor Saucedo MD Work Phone: [facility] 04-16-2024 13:28-0500 Body weight 57.[address] Néstor Saucedo MD Work Phone: [facility] 04-16-2024 13:28-0500 Diastolic blood pressure 69 mm[Hg] Dr. Néstor Saucedo MD Work Phone: [facility] 04-16-2024 13:28-0500 Heart rate 101 /min Dr. Néstor Saucedo MD Work Phone: [facility] 04-16-2024 13:28-0500 Respiratory rate 18 /min Dr. Néstor Saucedo MD Work Phone: [facility] 04-16-2024 13:28-0500 SaO2% (BldA) [Mass fraction] 96 % Dr. Néstor Saucedo MD Work Phone: [facility] 04-16-2024 13:28-0500 Systolic blood pressure 113 mm[Hg] Dr. Néstor Saucedo MD Work Phone: [facility] 02-02-2022 12:18-0500 Body temperature 99.5 [degF] Dr. Rj Saucedo Work Phone: [facility] Work Phone: 02-02-2022 12:18-0500 Diastolic blood pressure 70 mm[Hg] Dr. Rj Saucedo Work Phone: [facility] Work Phone: 02-02-2022 12:18-0500 Heart rate 104 /min Dr. jR Saucedo Work Phone: [facility] Work Phone: 02-02-2022 12:18-0500 Respiratory rate 15 /min Dr. Rj Saucedo Work Phone: [facility] Work Phone: 02-02-2022 12:18-0500 SaO2% (BldA) [Mass fraction] 98 % Dr. Rj Saucedo Work Phone: [facility] Work Phone: 02-02-2022 12:18-0500 Systolic blood pressure 120 mm[Hg] Dr. Rj Saucedo Work Phone: [facility] Work Phone: 11-24-2021 14:09-0400 Heart rate 90 /min Dr. Rj Saucedo Work Phone: [facility] Work Phone: 11-24-2021 12:57-0400 Body height 157.[address] Rj Saucedo Work Phone: [facility] Work Phone: 11-24-2021 12:57-0400 Body mass index (BMI) [Ratio] 21.9 kg/m2 Dr. Rj Saucedo Work Phone: [facility] Work Phone: 11-24-2021 12:57-0400 Body temperature 98.6 [degF] Dr. Rj Saucedo Work Phone: [facility] Work Phone: 11-24-2021 12:57-0400 Body weight 54.[address] Rj Saucedo Work Phone: [facility] Work Phone: 11-24-2021 12:57-0400 Diastolic blood pressure 76 mm[Hg] Dr. Rj Saucedo Work Phone: [facility] Work Phone: 11-24-2021 12:57-0400 Respiratory rate 16 /min Dr. Rj Saucedo Work Phone: [facility] Work Phone: 11-24-2021 12:57-0400 SaO2% (BldA) [Mass fraction] 98 % Dr. Rj Saucedo Work Phone: [facility] Work Phone: 11-24-2021 12:57-0400 Systolic blood pressure 140 mm[Hg] Dr. Rj Saucedo Work Phone: [facility] Work Phone: 11-22-2021 21:25-0400 Body temperature 98 [degF] [facility] Work Phone: 11-22-2021 21:25-0400 Diastolic blood pressure 82 mm[Hg] [facility] Work Phone: 11-22-2021 21:25-0400 Heart rate 67 /min [facility] Work Phone: 11-22-2021 21:25-0400 Respiratory rate 15 /min [facility] Work Phone: 11-22-2021 21:25-0400 SaO2% (BldA) [Mass fraction] 98 % [facility] Work Phone: 11-22-2021 21:25-0400 Systolic blood pressure 144 mm[Hg] [facility] Work Phone: 11-22-2021 19:52-0400 Body height 154.94 cm [facility] Work Phone: 11-22-2021 19:52-0400 Body mass index (BMI) [Ratio] 22.6 kg/m2 [facility] Work Phone: 11-22-2021 19:52-0400 Body weight 54.43 kg [facility] Work Phone: 08-07-2021 13:31-0400 Body height 154.[address] Rj Saucedo Work Phone: [facility] Work Phone: 06-15-2021 11:49-0400 Body mass index (BMI) [Ratio] 24.3 kg/m2 Dr. Rj Saucedo Work Phone: [facility] Work Phone: 06-15-2021 11:49-0400 Body weight 58.[address] Rj Saucedo Work Phone: [facility] Work Phone: 11-08-2016 10:10-0400 BMI (Body Mass Index) 23.65 kg/m2 Stephy Banerjee MD [facility] 11-08-2016 10:10-0400 Body Temperature 97.7 [degF] Stephy Banerjee MD [facility] 11-08-2016 10:10-0400 BP Diastolic 67 mm[Hg] Stephy Banerjee MD [facility] 11-08-2016 10:10-0400 BP Systolic 119 mm[Hg] Stephy Banerjee MD [facility] 11-08-2016 10:10-0400 Height 154.94 cm Stephy Banerjee MD [facility] 11-08-2016 10:10-0400 Pulse (Heart Rate) 70 /min Stephy Banerjee MD [facility] 11-08-2016 10:10-0400 Respiratory Rate 16 /min Stephy Banerjee MD [facility] 11-08-2016 10:10-0400 Weight 56.79 kg Stephy Banerjee MD [facility] Encounters Encounter Date Encounter Type Care Provider Facility Start: 11-22-2024 Encounter for gynecological examination (general) (routine) with abnormal findings Stephybrunilda Banerjee [facility] Start: 11-22-2024 End: 11-22-[address] Stephy Banerjee MD -[facility] Work Phone: Start: 11-22-2024 End: 11-22-[address] Stephy Banerjee MD [facility] Start: 11-22-2024 End: 11-22-[address] Néstor Saucedo MD Work Phone: -[facility] Start: 10-28-2024 End: 10-28-2024 Emergency department patient visit Dr. Néstor Saucedo MD Work Phone: -Emergency Department Work Phone: Start: 09-27-2024 ambulatory Zak Boudreaux Facility:[facility] Start: 09-27-2024 Non-patient / Non-visit Dr. Shazia CHRIS -[facility] Start: 09-27-2024 End: 09-27-[address] Néstor Saucedo MD Work Phone: -Cat Scan [facility] Start: 09-27-2024 End: 09-27-[address] Néstor Saucedo MD -Cat Scan [facility] Work Phone: Start: 09-27-2024 End: 09-27-2024 ambulatory Néstor Saucedo Facility:[facility] Start: 08-20-2024 End: 08-20-2024 Patient encounter procedure Shalom Pitt [place] [facility] Work Phone: Start: 08-20-2024 End: 08-20-[address] Néstor Saucedo MD Work Phone: -[facility] Start: 06-28-2024 End: 06-28-[address] Néstor Saucedo MD Work Phone: [facility] Work Phone: Start: 06-28-2024 End: 06-28-[address] Néstor Saucedo MD -Laboratory [facility] Start: 06-28-2024 End: 06-28-2024 ambulatory Néstor Saucedo Facility:[facility] Start: 05-31-2024 End: 05-31-[address] Néstor Saucedo MD Work Phone: [facility] Work Phone: Start: 05-31-2024 End: 05-31-[address] Stephy Banerjee MD -Outpatient Breast Imaging Work Phone: Start: 05-31-2024 End: 05-31-2024 ambulatory Stephy Banerjee Facility:[facility] Start: 04-16-2024 End: 04-16-[address] Sven Sanders MD -[facility] Work Phone: Start: 04-16-2024 End: 04-16-2024 ambulatory Néstor Saucedo Facility:[facility] Start: 02-16-2024 End: 02-26-2024 Telephone encounter Brandon Felix MD Work Phone: General Surgery Comment on above: Results (US thyroid ) Start: 02-09-2024 End: 02-09-[address] Néstor Saucedo MD -Laboratory, [facility] Start: 02-09-2024 End: 02-09-2024 ambulatory Néstor Saucedo Facility:[facility] Start: 05-15-2023 End: 05-15-2023 ambulatory [facility] Work Phone: Start: 05-15-2023 End: 05-15-2023 Patient encounter procedure [facility]-Outpatient Breast Imaging Work Phone: Start: 12-09-2022 End: 12-09-2022 ambulatory [facility] Work Phone: Start: 12-09-2022 End: 12-09-2022 Patient encounter procedure [facility]-Radiology, [facility] Work Phone: Start: 11-04-2022 End: 11-04-2022 ambulatory [facility] Work Phone: Start: 11-04-2022 End: 11-04-2022 Patient encounter procedure [facility]-Ultrasound, [facility] Work Phone: Start: 10-25-2022 End: 10-25-2022 ambulatory [facility] Work Phone: Start: 10-25-2022 End: 10-25-2022 Patient encounter procedure [facility]-Laboratory, [place] Work Phone: Start: 02-04-2022 End: 02-04-[address] Rj Saucedo Work Phone: [facility] Work Phone: Start: 02-04-2022 End: 02-04-[address] Rj Saucedo Work Phone: [facility]-Outpatient Breast Imaging Start: 02-02-2022 End: 02-02-[address] Rj Saucedo Work Phone: [facility] Start: 11-24-2021 End: 11-24-[address] Rj Saucedo Work Phone: [facility] Start: 11-22-2021 End: 11-22-2021 Emergency department patient visit [facility]-Emergency Department Start: 08-07-2021 End: 08-07-[address] Rj Saucedo Work Phone: [facility]-Outpatient Bone Densitometry Start: 06-15-2021 End: 06-15-[address] Rj Saucedo Work Phone: [facility] Start: 06-06-2021 Non-patient / Non-visit Dr. Steffany Saucedo Work Phone: [facility] Start: 06-06-2021 End: 06-06-[address] Rj Saucedo Work Phone: [facility]-Cardiovascula r Services Start: 05-15-2021 End: 05-15-2021 Patient encounter procedure [facility] Start: 05-10-2021 End: 05-10-2021 Patient encounter procedure [facility] Start: 02-01-2021 Patient encounter procedure [facility]-Outpatient Breast Imaging Start: 07-05-2020 ambulatory SAFDAR VILLA Facility:[facility] Start: 06-14-2020 ambulatory SELF SELF Facility:[facility] Procedures Date Procedure Procedure Detail Performing Clinician Start: 09-27-2024 CT angiography of coronary arteries Dr. Néstor Saucedo MD Work Phone: Start: 06-28-2024 Vitamin D, 25-hydrox y measurement Dr. Néstor Saucedo MD Work Phone: Comment on above: Vitamin D StatusDefi ciency: <20 ng/mL (50nmol/L)Insufficiency: 20-30 ng/mL (50-75 nmol/L)Sufficiency: 30-100 ng/mL (75-250 nmol/L)Toxicity: >100 ng/mL (>250 nmol/L) Start: 05-31-2024 Screening mammography Bk Saucedo MD Work Phone: Start: 02-09-2024 US scan of thyroid Dr. Néstor Saucedo MD Work Phone: Start: 05-15-2023 Screening mammography Start: 12-09-2022 Radiography of esophagus Start: 11-04-2022 US scan of thyroid Start: 02-04-2022 Screening mammography Bk Saucedo Work Phone: Start: 11-22-2021 Plain chest X-ray Start: 08-07-2021 Dual energy X-ray absorptiometry Start: 08-07-2021 US scan of thyroid Dr. Rj Saucedo Work Phone: Start: 05-15-2021 End: 05-15-2021 Clostridium difficile detection Start: 02-01-2021 Screening mammography Start: 11-08-[address] for gynecological examination (general) (routine) with abnormal findings Stephy Banerjee MD Start: 11-08-2016 Screening mammography Screenin g mammogram for breast cancer Stephy Banerjee MD Start: 01-22-2016 Colonoscopy Brandon augustin MD Work Phone: Start: 04-08-2012 Lipid 1996 panel - S herve or Plasma Brandon Felix MD Work Phone: Clostridium difficil e detection Dr. jR Saucedo Work Phone: Plan of Treatment Date Care Activity Detail Author Start: 07-17-2027 Urine microalbumin profile DTaP,Tdap,Td Vaccine (2 - Td or Tdap) [facility] Start: 06-06-2027 RSV Vaccine (1 - 1-dose 75+ series) RSV Vaccine (1 - 1-dose 75+ series) [facility] Start: 01-21-2026 Screening for malignant neoplasm of colon [facility] Start: 10-28-2024 [facility] Start: 10-28-2024 Simple repair scalp/neck/ax/genit/trunk 2.5cm/< RPR S/N/AX/GEN/TRNK 2.5CM/< [facility] Start: 02-18-2024 Advance Directive Discussion Advance Directive Discussion [facility] Start: 10-19-2023 Covid-19 Vaccine ( season) Covid-19 Vaccine ( season) [facility] Start: 10-19-2023 Influenza vaccination Influ[facility] Start: 11-22-2021 End: 11-22-2021 [facility] Work Phone: Start: 08-07-2021 Dual energy X-ray absorptiometry Dexa Bone Density Study [facility] Work Phone: Start: 05-15-2021 C. difficile DNA Amplification C. difficile DNA Amplification [facility] Work Phone: Start: 04-08-2017 Lipid panel Lipid Screening [facility] Start: 11-08-2016 End: 11-09-2016 Dxa bone density study 1/> sites axial skel Dual-energy X-ray absorptiometry (DXA), bone density study, 1 or more sites; [facility] Start: 11-08-2016 End: 11-09-2016 Mammogram, screening Mammogram, Screening, both breasts [facility] Start: 10-25-2016 Screening for malignant neoplasm of breast Mammogram Screening [facility] Start: 04-08-2015 Diabetes Screening Diabetes Screening [facility] Start: 03-24-2015 End: 03-27-2015 Mri spinal canal lumbar w/o contrast material MRI Lumbar Spine [facility] Start: 03-08-2015 End: 03-08-2015 Physical Therapy General Physical Therapy [facility], [address] [place] [address], [address] [facility] Start: 06-04-2014 Shingrix Vaccine (2 of 3) Shingrix Vaccine (2 of 3) [facility] Start: 1997 Screening for malignant neoplasm of colon [facility] Start: 1970 Anxiety Screening Anxiety Screening [facility] Start: 1970 Depression Screening Depression Screening [facility] Start: 1970 Hepatitis C screening Hepatitis C Screening [facility] MG Breast - bilatera l Screening [facility] Patient Education [facility] Work Phone: Patient referral [facility] Work Phone: Immunizations Immunization Date Immunization Notes Care Provider Matt estrella 08-20-2024 tetanus toxoid, reduced diphtheria toxoid, and acellular pertussis vaccine, adsorbed Dr. Néstor Saucedo MD Work Phone: [facility] 01-23-2016 influenza virus vaccine, unspecified formulation Brandon Felix MD Work Phone: [facility] Payers Date Payer Category Payer Unknown [id number] 2024 Self-pay [id number] 2020 Unknown MMO MMO MEDICARE SUPPLEMENT [id number] 2020-Present [phone] [address] [place] [address] Indemnity [id number] 2020 Medicare [id number] 2018 Unknown [id number] 2017 Medicare MEDICARE MEDICAR E A AND B [id number] 2017-Present [phone] [address] [address] [place] [address] Medicare [id number] 2016 Private Health Insurance [facility] [id number] 1950 Unknown [id number] 1950 Unknown [id number] Private Health Insurance [id number] Unknown [id number] Unknown [id number] Unknown [id number] Unknown [id number] Unknown [id number] 462 Unknown [id number] Unknown [id number] Unknown [id number] Unknown [id number] Unknown [id number] Social History Date Type Detail Facility Start: 06-14-2020 End: 02-02-2022 Tobacco smoking status MDIS Unknown if ever smoked [facility] Start: 05-29-2020 None [facility] Start: 05-29-2020 Spouse/ Signif icant Other [facility] Start: 06-14-2020 Non-smoker [facility] Start: 1950 Sex Assigned At Female [facility] Start: 06-01-2012 End: 11-22-2024 Tobacco smoking status MDIS Never smoked tobacco [facility] Work Phone: Start: 06-01-2012 Tobacco use and exposure Smokeless tobacco non-user [facility] Start: 10-03-2021 Alcoholic beverage intake Current non-drinker of alcohol (finding) [facility] Start: 08-04-2020 End: 10-03-2021 History of Social function [facility] Start: 08-04-2020 End: 10-03-2021 Tobacco use panel [facility] National Score (1-100), lower number is lower risk Not on file [facility] Start: 12-17-2007 Alcohol Comment Seldom [facility] Start: 1950 Sex assigned at Not on file [facility] Start: 06-03-2024 Sex Female (finding) [facility] Mental Status Date Assessment Result Facility 11-22-2021 Cognitive function Voice/Name [facility] Work Phone: Clinical Notes 02-16-2024 to 11-22-2024 Note Date & Type Note Facility 11-22-[address] [facility] 10-28-2024 Discharge summary [facility] 10-28-2024 Discharge summary Note Date/Time October 28, 2024 9:13pm [facility] Records Department [address] [place] [address] Emergency Department Summary 10/28/24 MR#: [id number] Acct: [id number] Name: KYLIE KWON Rep #:[id number] : 1950 74 From: Anderson goodson DO PCP: Dr. Néstor Saucedo MD Status :PRE ER Location: ED HPI History of Present Illness Chief Complaint: Laceration Narrative Narrative: Chief complaint and HPI: 74-year-old female presents for evaluation of finger laceration. Patient states her recently sharpened the knives today. States that she cut her left second finger on one of the knives while putting away the dishes. Not on blood thinners. Denies numbness or tingling. Review of systems: See HPI Medications: As listed on the chart Allergies: As listed on the chart PFSH: Per chart Vital signs: As listed on the chart. Reviewed. Physical exam: Gen: A&O x3, NAD Head: Normocephalic, atraumatic Eyes: No sclera icterus, conjunctiva clear ENT: Moist mucous membranes CV: Regular rate Resp: Nonlabored respirations Musc: Full ROM, no deformity, finger laceration to the distal left second finger that will need repaired, radial pulse +2, sensation intact, compartments soft, good capillary refill, no active bleeding Skin: Warm, dry Neuro: Alert, oriented, grossly intact, sensation intact Psych: Cooperative, appropriate mood and affect [facility] Medical History Carpal tunnel syndrome Trigger finger of both hands Post-menopausal Anxiety History of thyroid nodule History of steroid therapy Osteoporosis Ulcer Shortness of breath on exertion Non-smoker Leg cramps Irregular heart beat Migraine headache Restless legs Back pain Injury of head and neck History of abnormal cervical Pap smear Home Medications ?Medication ?Instructions ?Recorded ?Last Taken ?Type sertraline 100 mg tablet 25 mg PO DAILY 07/15/23 Unkn own History benzonatate 200 mg capsule 200 mg PO TID PRN cough #20 caps 08/13/23 Unknown Rx methylprednisolone 4 mg tablets in See Rx Instructions PO PER PKG DIR 08/13/23 Unknown Rx a dose pack (Medrol (Chepe)) #21 tabs minoxidil 2.5 mg tablet mg PO 04/16/24 Unknown Histo ry sertraline 50 mg tablet mg PO DAILY 04/16/24 Unknown History Allergy/AdvReac Type Severity Reaction Status Date / Time Sulfa (Sulfonamide Allergy Rash Verified 10/28/24 20:19 Antibiotics) Family History Mother Osteoporosis Congestive heart failure Rheumatoid arthritis Hypertension A-fib Arthritis High cholesterol Father Heart disease High cholesterol Brother Heart disease Surgical History H/O LEEP History of back surgery H/O tubal ligation History of carpal tunnel surgery Social History household members: spouse housing: house Smoking Status: Never smoker alcohol intake: never substance use type: does not use caffeine: Yes what type of physical activity do you participate in: none seatbelt use: always do you feel safe at home: Yes additional social history: 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 EXAM Physical Exam Const Vital Signs: 10/28/24 20:19 Temperature 98.1 F Temperature Source Oral Pulse Rate 71 Respiratory Rate 14 Blood Pressure 130/66 H Blood Pressure Mean 87 Pulse Ox 99 Oxygen Delivery Method Room Air MDM MDM MDM Narrative Medical decision making narrative: 74-year-old female presents for evaluation of finger laceration. Patient states her recently sharpened the knives today. States that she cut her left second finger on one of the knives while putting away the dishes. Not on blood thinners. Denies numbness or tingling. Patient has a finger laceration to the left distal left second finger. This require repair. Patient tolerated repair well. Patient stable to discharge home. Monitor for signs of infection. Sutures need to be removed in 7 to day days. Patient stable to discharge home. Laceration Repair Indication: Laceration Location: Left second distal finger Consent: Risks, benefits, and alternatives discussed with patient and consent obtained Procedure: A time out was performed. The area was prepped and draped in the usual sterile fashion. Local anesthesia was achieved using 1% Lidocaine without epinephrine as a digital block. The wound was copiously irrigated and cleaned. 6 sutures were placed using 4-0 Ethilon in an interrupted fashion. The estimatedblood loss was minimal. A dressing was applied to the area with Bacitracin. The patient tolerated the procedure well without complications. Foreign Material: None Debridement: None Follow-up: Anticipatory guidance, as well as standard post-procedure care, was explained. Return precautions are given. Follow-up visit set for suture removal and evaluation of the laceration. Impression: 1. Left finger laceration, status post suture repair Discharge Plan Triage Chief Complaint: Laceration ED Provider: Anderson Cantrell Dx/Rx/DC Orders Clinical Impression: Finger laceration Instructions: ED Laceration, All Closures Prescriptions: No Action sertraline 100 mg tablet 25 mg PO DAILY Patient Comments: take 1 tablet by mouth once daily methylprednisolone [Medrol (Chepe)] 4 mg tablets,dose pack See Rx Instructions PO PER PKG DIR Qty: 21 0RF Rx Instructions: PO PER PKG DIR benzonatate 200 mg capsule 200 mg PO TID PRN (Reason: cough) Qty: 20 0RF minoxidil 2.5 mg tablet PO Patient Comments: [NO ORIGINAL SIG] sertraline 50 mg tablet PO DAILY Primary Care Provider: Néstor Saucedo Referrals: Néstor Saucedo MD [Primary Care Provider] - 3-5 Days Activity Restrictions/Additional Instructions: Follow-up with primary care physician. Monitor for signs of infection. Sutures need to be removed in 7 to 10 days. Okay to shower in 24 hours. Let soapy water run over the finger but do not scrub or soak in water. No lakes, ruiz, oceans, bathtubs, hot tubs until fully healed. Print Language: Kyrgyz Disposition Disposition: Home, Self Care What to do if you have Problems For any increased pain, shortness of breath, bleeding, nausea or vomiting, chestpain, or any unexpected problems, contact your Primary Care Provider. Call [facility] ([phone]) or report to the closest Emergency Room. Call 911 if necessary. 10/28/242112 <Electronically signed by Anderson Cantrell DO> Cosigner Signature (if applicable): CC: Dr. Néstor Saucedo MD ~ Signed [facility] Work Phone: 1(733) 486-144409-11-2025 Hospital Discharge instructionsAdditional Instructions Follow-up with primary care physician. Monitor for signs of infection. Sutures need to be removed in 7 to 10 days. Okay to shower in 24 hours. Let soapy water run over the finger but do not scrub or soak in water. No lakes, ruiz, oceans, bathtubs, hot tubs until fully healed.[facility] Work Phone: 1(365) 264-644608-11-2025 Radiology Diagnostic study note [facility] Imaging Services [address] [place] [address] 09/27/24 1804 MR#: [id number] Acct: [id number] Name: KYLIE KWON Rep #:[id number] : 1950 74 From: Zak Boudreaux MD PCP: Dr. Néstor Saucedo MD Status :REG CLI Y Location: CT Calcium Scoring Date of Study:: 09/27/24 Indications Indications: High cholesterol family history Coronary Calcium Scoring: High-resolution Computed Tomographic imaging of the chest was performed on [09/27/2024], with particular attention paid to the coronary arteries. Images from the examination were analyzed for the presence and extent of coronary artery calcification , using coronary calcium quantification software. The patient tolerated the procedure well and there were no complications. The results of the coronarycalcification analysis are provided below. Findings Coronary Artery Left Main (LM): 0 Left Anterior Descending (LAD): 0 Left Circumflex (LCX): 0 Right Coronary Artery (RCA): 0 Total Agatston Score: 0 Percentile Rankin Calcium Scoring Interpretation: Different methods to categorize the overall amount of coronary plaque. Overall amount CAC SIS Visual of coronary plaque P1 Mild -100 <2 1-2 vessels with mild amount of plaque P2 Moderate 101-300 3-4 1-2 vessels with moderate amount, 3 vessels with mild amount of plaque P3 Severe 301-999 5-7 3 vessels with moderate amount, 1 vessel with severe amount of plaque P4 Extensive >1000 >8 2-3 vessels with severe amount of plaque Conclusion: No atherosclerotic plaquing 09/27/24 1804 Date _ Zak Cheatham Signature (if applicable): Date CC: Dr. Néstor Saucedo MD; Dr. Zak Boudreaux MD ~ Signed [facility] Work Phone: 1(952) 735-956908-11-2025 Radiology Diagnostic study note [facility] Imaging Services [address] [place] [id number] Cardiac Only MR#: [id number] Acct: [id number] Name: KYLIE KWON Rep #: [id number] : 1950 F 74 From: Chau Walsh MD PCP: Dr. Néstor Saucedo MD Status: REG CLI Study:Limited Chest CT Cardiac Only Date of E xam: 09/27/24 Exam# [id number] Ordering Dr: Lyndsey Saucedo MD PROCEDURE: LIMITED CHEST CT CARDIAC ONLY 09/27/2024 REASON FOR EXAM: HYPERLIPIDEMIA, UNSPECIFIED TECHNIQUE: LIMITED CHEST CT CARDIAC ONLY CONTRAST: None One or more dose reduction techniques were used (e.g., Automated exposure control, adjustment of the mA and/or kV according to patient size, use of iterative reconstruction technique). RADIATION DOSE SUMMARY: CTDlvol: 12.19 mGy DLP: 170.66 mGycm COMPARISON: None FINDINGS: Proximal coronary artery calcification. Minimal linear scarring in the lingula segment of the left upper lobe. CT/Limited Chest CT Cardiac Only IMPRESSION: Minimal coronary artery calcification. Reading Location: [place] [address] CC: Dr. Néstor Saucedo MD ~ [employer] Architect: Signed [facility]07-04-2025 Evaluation note* Diagnosis Onset Date Resolution Status Admit Date Puncture wound of right foot excluding toes without complication acute August 20, 2024 9 :36am [facility] Work Phone: 1(768) 139-323307-04-2025 Evaluation note* Diagnosis Onset Date Resolution Status Admit Date Puncture wound of right foot excluding toes without complication acute August 20, 2024 9 :36am Stress incontinence acute Octob er 2024 10:02am Dyspareunia chronic November 22, 2024 10:02am Osteopenia chronic November 22 10:02am Encounter for routine gynecological examination noneactive Oct r 2024 10:02am [facility] Work Phone: 1(234) 203-581302-28-2025 Evaluation note* Diagnosis Onset Date Resolution Status Admit Date Dermatochalasis of both uppe r eyelids acute April 16 1:03pm [facility] Work Phone: 1(360) 911-951401-09-2025 Telephone encounter Note* Telephone Encounter - Alejandra Cotton LPN - 02/26/2024 8:49 AM EST Called and spoke to patient, updated and patient voiced understanding. Alejandra Cotton LPN February 26, 2024 8:49 AM [facility]01-09-2025 Miscellaneous Notes* Telephone Encounter - Alejandra Cotton LPN - 02/26/2024 8:49 AM EST Called and spoke to patient, updated and patient voiced understanding. Alejandra Cotton LPN February 26, 2024 8:49 AM * Telephone Encounter - Brandon Felix MD - 02/25/2024 10:15 AM EST Does not look like there is any change in the thyroid ultrasound results. I do not think a repeat fine-needle aspiration will be needed. * Telephone Encounter - Alejandra Cotton LPN - 02/16/2024 10:37 AM EST US of thyroid in scanned documents. For your review. Patient does not currently have appointment. Alejandra Cotton LPN February 16, 2024 10:39 AM [facility] Telephone encounter Note * Telephone Encounter - Brandon Felix MD - 02/25/2024 10:15 AM EST Does not look like there is any change in the thyroid ultrasound results. I do not think a repeat fine-needle aspiration will be needed. [facility]12-30-2024 Telephone encounter Note* Telephone Encounter - Alejandra Cotton LPN - 02/16/2024 10:37 AM EST US of thyroid in scanned documents. For your review. Patient does not currently have appointment. Alejandra Cotton LPN February 16, 2024 10:39 AM [facility] noteNo assessment information availableWLake County [facility] Work Phone: Evaluation note* Diagnosis Onset Date Resolution Status Stress incontinence acute Dyspareunia chronic Encounter for routine gynecological examination noneactive [facility] Work Phone: Evaluation note* Diagnosis Onset Date Resolution Status URI (upper respiratory infection) acute URI (upper respiratory infection) acute [facility] Work Phone: Progress note Author Stephy Banerjee [facility] Note Date/Time November 22, 2024 10 :39am [facility] [address], [address] [place] [address] OFFICE VISIT Date of Service: 11/22/24 MR#: [id number] Acct: [id number] Name: KYLIE KWON Rep #: [id number] : 1950 Provider: Dr. 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 Is patient in pain?: No Allergies Sulfa (Sulfonamide Antibiotics) Allergy (Verified 11/22/24 10:11) Rash Medications ?Medication ?Instructions ?Recorded ?Confirmed ?Type sertraline 100 mg tablet 25 mg PO DAILY 07/15/2308/11 History minoxidil 2.5 mg tablet mg PO 04/16/24 11/22/24 Hist ory multivitamin with minerals-folic tab PO 11/22/2411/22 History acid 0.4 mg tablet Is last menstrual period known: No Post menopausal: Yes Patient : No : No [facility] Medical History (Updated 11/05/24 @ 00:01 by Cherelle Roman) Carpal tunnel syndrome Trigger finger of both hands Post-menopausal Anxiety History of thyroid nodule History of steroid therapy Osteoporosis Ulcer Shortness of breath on exertion Non-smoker Leg cramps Irregular heart beat Migraine headache Restless legs Back pain Injury of head and neck History of abnormal cervical Pap smear Surgical History (Updated 11/22/24 @ 10:13 by Carolyn Leon) H/O eye surgery H/O LEEP History of back surgery H/O tubal ligation History of carpal tunnel surgery Family History Mother Osteoporosis Congestive heart failure Rheumatoid arthritis Hypertension A-fib Arthritis High cholesterol Father Heart disease High cholesterol Brother Heart disease Social History (Updated 11/22/24 @ 10:14 by Carolyn Leon) household members: spouse housing: house current occupational status: retired Smoking Status: Never smoker alcohol intake: never substance use type: does not use caffeine: Yes what type of physical activity do you participate in: none seatbelt use: always do you feel safe at home: Yes additional social history: 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 Date Name GA/Weeks Outcome Route Bth Weight Infant Gen Labor Lgth Anesthesia Del Locatn Provider FOB Unknown 1971 Chirag live - full term Unknown 167 [facility] live - full term HPI Encounter for routine gynecological examination Details: KYLIE KWON is a 74 year old who presents for annual exam. Last PAP: 2017 History of abnormal PAP: 05/31/2024 - normal Last mammogram: History of abnormal mammogram: Colon cancer screening: colonoscopy unsure when last done Other preventative health care screenings: PCP [facility] Female Reproductive History Menopausal Symptoms: No hot flashes, No night sweats, No difficulty concentrating and No change in libido ROS Const Constitutional: Reports as per HPI; Denies fatigue, increased appetite, poor appetite, night sweats, weight gain or weight loss Cardio Card: Denies chest pain Resp Resp: Denies cough or dyspnea GI GI: Reports as per HPI and bloating; Denies abdominal pain, constipation, nausea or vomiting : Reports as per HPI, urinary incontinence and other; Denies difficulty voiding, dysuria, hematuria, hot flashes, nipple discharge, pelvic pain, prolapse symptoms, urinary frequency, urinary urgency, vaginal discharge, vaginal dryness, vaginal odor or vaginal pruritus Skin Skin/Breast: Denies changing lesions, breast mass, breast pain, breast skin changes or nipple discharge Psych Psych: Denies anxiety, change in libido, depression or difficulty concentrating Exam Const General: cooperative, healthy appearing, comfortable, no acute distress, well developed and well groomed HENMT Head: normal to inspection and normocephalic Ears: hearing grossly normal bilaterally and external ears normal Nose: external nose normal Face and sinus: normal facial exam Neck Neck: normal visual inspection, full ROM and no lymphadenopathy Thyroid: thyroid normal Chest Chest palpation & inspection: normal inspection of the chest Breast inspection: normal inspection of the breasts and normal inspection of theaxillae Breast palpation: normal palpation of the breasts, normal palpation of the axillae and no axillary lymphadenopathy Resp Effort & Inspection: normal respiratory effort GI Inspection: normal to inspection and non-distended Palpation: soft, no hepatosplenomegaly and no guarding General: bladder normal to palpation External Female Exam: normal external appearance, normal appearance of the urethra and no lesions Urethra: normal appearance of the urethra and normal palpation Speculum Exam - Vagina: normal appearance of the vagina and normal vaginal discharge Speculum Exam - Cervix: normal appearance of the cervix, no cervical discharge, no lesions and nontender Bimanual Exam- Vagina & Uterus: normal bimanual exam, uterine size normal, bladder normal to palpation, No tender, uterine mobility normal, consistency normal, non-tender and no cervical motion tenderness Bimanual Exam- Adnexa, other: normal adnexae, no masses and non-tender Skin General: no rashes or lesions noted Neuro General: patient alert, moves all extremities and no focal motor deficits Extrem General: normal to inspection and no pedal edema Psych Appearance: grossly normal Mental Status: mental status grossly normal Affect: normal affect Speech and Movement: speech and movement normal Attitude: cooperative Coding Level of Care Code Pelvic/Breast Diagnoses Encounter for gynecological examination with abnormal finding Z01.411 Gynecological examination findings: abnormal findings PRESENT Dyspareunia Osteopenia M85.80 Stress incontinence N39.3 Assessment and Plan Assessment and Plan (1) Encounter for routine gynecological examination: Qualifiers: Gynecological examination findings: abnormal findings PRESENT QualifiedCode(s): Z01.411 - Encounter for gynecological examination (general) (routine) with abnormal findings (2) Dyspareunia: Status: Chronic Comment: failed pills and cream in past, will restart osphen to use with PFPT. PFPT ordered (3) Osteopenia: Status: Chronic Comment: DEXA ordered but on prolia through PCP. (4) Stress incontinence: Status: Acute Comment: PFPT referreal, doing kegels. Orders: Orders SCRN MAMM (CAD)W/SANJUANA BILAT Today Z12.31 - Encounter for screening mammogram for malignant neoplasm of breast Plan Cervical cancer screening: pap nl in past Breast cancer screening: mamm heart healthy diet discussed based on cholesterol other health maintenance examination reviewed and orders placed if needed. Encouraged maintenance of a healthy weight and active lifestyle and handout given. Annual exam handout including recommendations for good health guidelines, Calcium/vitamin D recommendations, and basic screening information given. Problem list up to date, see problem list details for any additional plan information. Follow up in one year for annual health maintenance exam or sooner if needed. 11/22/24 1039 <Electronically signed by Stephy esqueda MD> Date _ Stephy Banerjee MD Cosigner Signature: Date (if applicable) CC: ~ [facility] Work Phone: Reason for referral (narrative)No reason for referral information availableWLake County [facility] Work Phone: Summary Purpose Family History No Family History Records Found Relationship Condition Age at Onset Recorded Date/T misael mother Osteoporosis Unknown Congestive heart failure Unknown Rheumatoid arthritis Unknown Hypertension Unknown Atrial fibrillation Unknown father Cardiac disease Unknown brother Cardiac disease Unknown Relationship Condition Age at Onset Recorded Date/T misael mother Osteoporosis Unknown Congestive heart failure Unknown Rheumatoid arthritis Unknown Hypertension Unknown Atrial fibrillation Unknown Arthritis Unknown High blood cholesterol Unknown father Cardiac disease Unknown brother Cardiac disease Unknown Advance Directives No Advanced Directives Records Found Advance Directive Response Recorded Date/ Time Living Will No June 14, 2020 10:11am Power of Animal Husbandman Yes June 14 10:11am Advance Directive Response Recorded Date/ Time Name of Medical Power of Animal Husbandman Umer Kwon November 22, 2021 8:05pm Living Will Yes November 22 8:05pm Power of Animal Husbandman Yes November 22 8:05pm Advance Directive Response Recorded Date/ Time Name of Medical Power of Animal Husbandman Umer Kwon November 22, 2021 7:05pm Living Will Yes November 22 7:05pm Power of Animal Husbandman Yes November 22 7:05pm Advance Directive Response Recorded Date/ Time Living Will Yes November 22 8:05pm Power of Animal Husbandman Yes November 22 8:05pm Advance Directive Response Recorded Date/ Time Do you have a Healthcare Power of Animal Husbandman? 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 Reason for Visit Stress incontinence Dyspareunia Encounter for routine gynecological examination Chief Complaint OSTEO general illness Chief Complaint general illness sinus infection SORE THROAT, COUGH SCREENING Reason for Visit URI (upper respirato ry infection) URI (upper respiratory infection) Chief Complaint EORDER Chief Complaint EORDER THYROID NODULE Chief Complaint EORDER THYROID NODULE DYSPHAGIA Chief Complaint Admit Date F/U THYROID NODULE February 09, 2024 12:26pm UPPER BLEPH/VENOUS ASHBY April 16, 025 1:03pm screen for breast cancer May 31 10:19am Reason for Visit Admit Date Dermatochalasis of both upper eyelids Fe bruary 2024 1:03pm Chief Complaint Admit Date UPPER BLEPH/VENOUS ASHBY April 16, 025 1:03pm screen for breast cancer May 31 10:19am Chief Complaint Admit Date screen for breast cancer May 31 10:19am STEPPED ON NAIL R FOOT/TETANUS SHOT August 20, 2024 9:36am Chief Complaint Admit Date STEPPED ON NAIL R FOOT/TETANUS SHOT August 20, 2024 9:36am high lipid and ASCVD September 27, 2024 2 :35pm high lipid and ASCVD September 27, 2024 6 :04pm Reason for Visit Admit Date Puncture wound of right foot excluding toes without complication August 20, 2024 9:36am Chief Complaint Admit Date STEPPED ON NAIL R FOOT/TETANUS SHOT August 20, 2024 9:36am high lipid and ASCVD September 27, 2024 2 :35pm high lipid and ASCVD September 27, 2024 6 :04pm LACERATION October 28, 2024 8:19pm Chief Complaint Admit Date STEPPED ON NAIL R FOOT/TETANUS SHOT August 20, 2024 9:36am high lipid and ASCVD September 27, 2024 2 :35pm high lipid and ASCVD September 27, 2024 6 :04pm LACERATION October 28, 2024 8:19pm 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, 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 Reason for Visit Admit Date Puncture wound of right foot excluding toes without complication August 20, 2024 9:36am Stress incontinence November 22, 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 Dyspareunia November 22, 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 Osteopenia November 22, 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 Encounter for routine gynecological exam ination November 22, 2024 10:02am Additional Source Comments INFORMATION SOURCE (unrecogn ized section and content) DATE CREATED AUTHOR 03/21/2021 [facility] DATE CREATED AUTHOR AUTHOR'S ORGANIZ ATION 03/02/2024 [facility] DATE CREATED AUTHOR AUTHOR'S ORGANIZ ATION 11/24/2024 [facility] Goals (unrecognized section and content) Goals may be documented in a n alternate sectionGoals may be documented in an alternate sectionGoals may be documented in an alternate sectionGoals may be documented in an alternate sectionGoals may be documented in an alternate sectionGoals may be documented in an alternate sectionGoals may be documented in an alternate sectionGoals may be documented in an alternate sectionGoals may be documented in an alternate sectionGoals may be documented in an alternate sectionGoals may be documented in an alternate sectionGoals may be documented in an alternate sectionGoals may be documented in an alternate sectionGoals may be documented in an alternate sectionGoals may be documented in an alternate sectionGoals may be documented in an alternate section Care Teams (unrecognized sec tion and content) Team Status: Active Member Role Status Dates Dr. Rj Saucedo MD Family Provider Active Dr. Rj Saucedo MD Primary Care Provider Activ e Team Status: Inactive Member Role Status Dates Dr. Rj Saucedo MD Primary Care Provider, Attending Provider, Referring Provider Active Team Status: Inactive Member Role Status Dates Dr. Rj Saucedo MD Primary Care Provider Activ e Dr. 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 Néstor Saucedo MD Primary Care Provider Acti ve Team Status: Inactive Member Role Status Dates Dr. Néstor Saucedo MD Primary Care Provider Acti ve Start: February 09, 2024 End: February 09, 2024 Dr. Néstor Saucedo MD Attending Provider Active Start: February 09, 2024 End: February 09, 2024 Dr. Néstor Saucedo MD Referring Provider Active Start: February 09, 2024 End: February 09, 2024 Team Status: Inactive Member Role Status Dates Dr. Néstor Saucedo MD Primary Care Provider Acti ve Start: April 16, 2024 End: April 16, 2024 Dr. Sven Sanders MD Attending Provider Active Start: April 16, 2024 End: April 16, 2024 Dr. Mariaelena Pino MD Referring Provider Active S tart: April 16, 2024 End: April 16, 2024 Team Status: Inactive Member Role Status Dates Dr. Néstor Saucedo MD Primary Care Provider Acti ve Start: May 31, 2024 End: May 31, 2024 Dr. Stephy Banerjee MD Attending Provider Active Start: May 31, 2024 End: May 31, 2024 Dr. Stephy Banerjee MD Referring Provider Active Start: May 31, 2024 End: May 31, 2024 Team Status: Inactive Member Role Status Dates Dr. Néstor Saucedo MD Primary Care Provider Acti ve Start: June 28, 2024 End: June 28, 2024 Dr. Néstor Saucedo MD Attending Provider Active Start: June 28, 2024 End: June 28, 2024 Dr. Néstor Saucedo MD Referring Provider Active Start: June 28, 2024 End: June 28, 2024 Team Status: Active Member Role/Relationship Status Dates Dr. Néstor Saucedo MD Primary Care Provider Acti ve Team Status: Inactive Member Role/Relationship Status Dates Dr. Néstor Saucedo MD Primary Care Provider Acti ve Start: May 31, 2024 End: May 31, 2024 Dr. Stephy Banerjee MD Attending Provider Active Start: May 31, 2024 End: May 31, 2024 Dr. Stephy Banerjee MD Referring Provider Active Start: May 31, 2024 End: May 31, 2024 Team Status: Inactive Member Role/Relationship Status Dates Dr. Néstor Saucedo MD Primary Care Provider Acti ve Start: June 28, 2024 End: June 28, 2024 Dr. Néstor Saucedo MD Attending Provider Active Start: June 28, 2024 End: June 28, 2024 Dr. Néstor Saucedo MD Referring Provider Active Start: June 28, 2024 End: June 28, 2024 Team Status: Inactive Member Role/Relationship Status Dates Dr. Néstor Saucedo MD Primary Care Provider Acti ve Start: August 20, 2024 End: August 20, 2024 Dr. Néstor Saucedo MD Referring Provider Active Start: August 20, 2024 End: August 20, 2024 AMILCAR Berry Attending Provider Active Sta rt: August 20, 2024 End: August 20, 2024 Team Status: Inactive Member Role/Relationship Status Dates Dr. Néstor Saucedo MD Primary Care Provider Acti ve Start: June 28, 2024 End: June 28, 2024 Dr. Néstor Saucedo MD Attending Provider Active Start: June 28, 2024 End: June 28, 2024 Dr. Néstor Saucedo MD Referring Provider Active Start: June 28, 2024 End: June 28, 2024 Team Status: Inactive Member Role/Relationship Status Dates Dr. Néstor Saucedo MD Primary Care Provider Acti ve Start: August 20, 2024 End: August 20, 2024 Dr. Néstor Saucedo MD Referring Provider Active Start: August 20, 2024 End: August 20, 2024 AMILCAR Berry Attending Provider Active Sta rt: August 20, 2024 End: August 20, 2024 Team Status: Inactive Member Role/Relationship Status Dates Dr. Néstor Saucedo MD Primary Care Provider Acti ve Start: September 27, 2024 End: September 27, 2024 Dr. Néstor Saucedo MD Attending Provider Active Start: September 27, 2024 End: September 27, 2024 Dr. Néstor Saucedo MD Referring Provider Active Start: September 27, 2024 End: September 27, 2024 Team Status: Active Member Role/Relationship Status Dates Dr. Néstor Saucedo MD Primary Care Provider Acti ve Start: September 27, 2024 Dr. Néstor Saucedo MD Referring Provider Active Start: September 27, 2024 Dr. Néstor Saucedo MD Other Provider Active Start: September 27, 2024 Dr. Zak Boudreaux MD Attending Provider Active S tart: September 27, 2024 Team Status: Inactive Member Role/Relationship Status Dates Dr. Néstor Saucedo MD Primary Care Provider Acti ve Start: August 20, 2024 End: August 20, 2024 Dr. Néstor Saucedo MD Referring Provider Active Start: August 20, 2024 End: August 20, 2024 AMILCAR Berry Attending Provider Active Sta rt: August 20, 2024 End: August 20, 2024 Team Status: Inactive Member Role/Relationship Status Dates Dr. Néstor Saucedo MD Primary Care Provider Acti ve Start: September 27, 2024 End: September 27, 2024 Dr. Néstor Saucedo MD Attending Provider Active Start: September 27, 2024 End: September 27, 2024 Dr. Néstor Saucedo MD Referring Provider Active Start: September 27, 2024 End: September 27, 2024 Team Status: Active Member Role/Relationship Status Dates Dr. Néstor Saucedo MD Primary Care Provider Acti ve Start: September 27, 2024 Dr. Néstor Saucedo MD Referring Provider Active Start: September 27, 2024 Dr. Néstor Saucedo MD Other Provider Active Start: September 27, 2024 Dr. Zak Boudreaux MD Attending Provider Active S tart: September 27, 2024 Team Status: Inactive Member Role/Relationship Status Dates Dr. Néstor Saucedo MD Primary Care Provider Acti ve Start: October 28, 2024 End: October 28, 2024 Dr. Anderson Cantrell DO Emergency Provider Activ e Start: October 28, 2024 End: October 28, 2024 Team Status: Active Member Role/Relationship Status Dates Dr. Néstor Saucedo MD Primary care physician Act neym[place] Team Status: Inactive Member Role/Relationship Status Dates Dr. Néstor Saucedo MD Primary care physician Act [place] Start: August 20, 2024 End: August 20, 2024 Dr. Néstor Saucedo MD Referring Provider Active Start: August 20, 2024 End: August 20, 2024 AMILCAR Berry Attending physician Active St art: August 20, 2024 End: August 20, 2024 Team Status: Inactive Member Role/Relationship Status Dates Dr. Néstor Saucedo MD Primary care physician Act [place] Start: September 27, 2024 End: September 27, 2024 Dr. Néstor Saucedo MD Attending physician Active Start: September 27, 2024 End: September 27, 2024 Dr. Néstor Saucedo MD Referring Provider Active Start: September 27, 2024 End: September 27, 2024 Team Status: Active Member Role/Relationship Status Dates Dr. Néstor Saucedo MD Primary care physician Act [place] Start: September 27, 2024 Dr. Néstor Saucedo MD Referring Provider Active Start: September 27, 2024 Dr. Néstor Saucedo MD Nurse Practitioner Active Start: September 27, 2024 Dr. Zak Boudreaux MD Attending physician Active Start: September 27, 2024 Team Status: Inactive Member Role/Relationship Status Dates Dr. Néstor Saucedo MD Primary care physician Act [place] Start: October 28, 2024 End: October 28, 2024 Dr. Anderson Cantrell DO Attending physician Active Start: October End: October 28, 2024 Dr. Anderson Cantrell DO Emergency Department Physician Active Start: October 28, 2024 End: October 28, 2024 Team Status: Inactive Member Role/Relationship Status Dates Dr. Néstor Saucedo MD Primary care physician Act [place] Start: November 22, 2024 End: November 22, 2024 Dr. Néstor Saucedo MD Referring Provider Active Start: November 22, 2024 End: November 22, 2024 Dr. Stephy Banerjee MD Attending physician Active Start: November 22, 2024 End: November 22, 2024 Source Comments (unrecognize d section and content) In the event this informatio n is protected by the Federal Confidentiality of Alcohol and Drug Abuse Patient Records regulations: The Federal rules restrict any use of the information to criminally investigate or prosecute any alcohol or drug abuse patient.[facility] Reason for Visit (unrecogniz ed section and content) Reason Comments Results US thyroid FOR RECORDS PERTAINING TO PATIENTS WHO ARE OR HAVE BEEN ENROLLED IN A CHEMICAL DEPENDENCY/SUBSTANCEABUSE PROGRAM, SOME INFORMATION MAY BE OMITTED. This clinical summary was aggregated from multiple sources. Caution should be exercised in using it in the provision of clinical care. This summary normalizes information from multiple sources, and as a consequence, information in this document may materially change the coding, format and clinical context of patient data. In addition, data may be omitted in some cases. CLINICAL DECISIONS SHOULD BE BASED ON THE PRIMARY CLINICAL RECORDS. [facility] [employer] [facility]. provides no warranty or guarantee of the accuracy or completeness of information in this document.
== END 2025-02-04 23:59 | disposition home or self-care (01) ==
PROVIDERS: PCP Family Medicine
DX: K12.0 Recurrent oral aphthae (principal)
CPT/HCPCS: 36415